=== PATIENT | female | born 1980 | race Caucasian/White ===

== ENCOUNTER → 2016-12-16 | Outpatient (CLI) | payer OTHER, BC ==
[~2016-12-16] MED LIST: ALPR-411 PO; B-CO1CAP17 PO; B-COCAP2 PO; CETI10TA84 PO; CYCL5TAB PO; EPP3/2 INJ; ESCI1TAB10 PO; ESTR0.5T3 PO; OMAL150S INJ; ONDA8TAB13 SL; OXYC-57 PO; PRED20TA PO; PROC1TAB5 PO; TAMS0.4C38 PO; TOPI1CAP3 PO; TOPI50TA16 PO; VENL37.593 PO; ZNTT/150 PO; [UNRECOGNIZED DRUG - CODE] PO
[2016-12-16 19:07] LABS: HEMATOCRIT 37.8 % (37-47); MEAN CELL VOLUME 84.9 fL (80-100); MEAN CORPUSCULAR HEMOGLOBIN 29.4 pg (25-34); MEAN CORPUSCULAR HGB CONC 34.7 g/dl (32-36); MEAN PLATELET VOLUME 11.8 fL (7.4-10.4); PLATELET COUNT 240 K/uL (130-400); PLT ESTIMATE NORMAL; RED BLOOD COUNT 4.45 M/uL (4.2-5.4); WHITE BLOOD COUNT 5.67 K/uL (4.8-10.8)
== END | disposition home or self-care (01) ==
LOC: C.LABMFLN 09:18
PROVIDERS: ATTEND Family Medicine
DX: R61 Generalized hyperhidrosis (principal)

== ENCOUNTER 2017-02-13 19:05 | Emergency (ER) | payer OTHER, BC ==
[~2017-02-13] VITALS: Ht 160 cm; Wt 86.4 kg
[~2017-02-13 19:05] MED LIST changes: -ALPR-411 PO; -B-CO1CAP17 PO; -CETI10TA84 PO; -CYCL5TAB PO; -OMAL150S INJ; -ONDA8TAB13 SL; -OXYC-57 PO; -PRED20TA PO; -TAMS0.4C38 PO; -TOPI1CAP3 PO; -VENL37.593 PO
[2017-02-13 19:09] VITALS: TEMP 36.9; Ht 160 cm; Wt 86.4 kg
[2017-02-13] MEDS ORDERED: MoRPHine SULFATE 4 MG/ML 1 ML CARP\\VIAL IV STA (19:25)
[2017-02-13] MEDS ORDERED: ONDANSETRON INJ 2 MG/ML 2 ML VIAL IV STA (19:25)
[2017-02-13] MEDS ORDERED: CYCL5TAB PO (19:41)
[2017-02-13] MEDS ORDERED: B-CO1CAP17 PO (19:41)
[2017-02-13 19:44] LABS: BASO % 0.3 %; BASO ABS # 0.02 K/uL (0-0.2); COMPLETE YES; EOS % 0.8 %; HEMATOCRIT 38.8 % (37-47); IG% 0.3 %; LYMPH ABS # 2.97 K/uL (1.2-3.4); MEAN CELL VOLUME 85.1 fL (80-100); MEAN CORPUSCULAR HEMOGLOBIN 29.2 pg (25-34); MEAN CORPUSCULAR HGB CONC 34.3 g/dl (32-36); MEAN PLATELET VOLUME 10.3 fL (7.4-10.4); MONO % 4.2 %; NEUT % 54.4 %; PLATELET COUNT 230 K/uL (130-400); RED BLOOD COUNT 4.56 M/uL (4.2-5.4); WHITE BLOOD COUNT 7.42 K/uL (4.8-10.8)
[2017-02-13] MEDS ORDERED: OPTIRAY 320 IV PRN (19:45)
[2017-02-13 19:49] LABS: URINE APPEARANCE CLEAR (CLEAR); URINE BILIRUBIN NEG (NEG); URINE COLOR YELLOW; URINE NITRITE NEG (NEG); URINE PH 5.5 (4.5-7.5); URINE SPECIFIC GRAVITY 1.009 (1.000-1.030); UROBILINOGEN NEG (NEG)
[2017-02-13 19:50] LABS: MANUAL MICROSCOPIC REQUIRED? NO; REVIEW REQ? NO
[2017-02-13 20:04] LABS: ALT/SGPT 34 U/L (12-78); BLOOD UREA NITROGEN 17 mg/dl (7-18); BUN/CREATININE RATIO 22.2 (10-20); CALCIUM 8.6 mg/dl (8.5-10.1); CARBON DIOXIDE 24 mmol/L (21-32); CHLORIDE 106 mmol/L (98-107); CREATININE 0.76 mg/dl (0.60-1.20); GLUCOSE 103 mg/dl (70-99); POTASSIUM 3.7 mmol/L (3.5-5.1); SODIUM 140 mmol/L (136-145)
[2017-02-13 20:07] LABS: ALKALINE PHOSPHATASE 91 U/L (45-117); AST/SGOT 20 U/L (15-37)
--- NOTE | 2017-02-13 22:42 | DIAGNOSTIC IMAGING REPORT ---
LUMBAR SPINE CT CT DOSE: HISTORY: Trauma. Pain. eval for fx TECHNIQUE: Multiaxial CT images of the lumbar spine were performed and reformatted in the sagittal and coronal plane without the use of contrast. COMPARISON: None. FINDINGS: No fractures. No subluxation. Paraspinal soft tissues are unremarkable. IMPRESSION: No fractures within the lumbar spine. Electronically signed by: Spencer Hogue M.D. 02/13/2017 10:41 PM Dictated Date/Time: 02/13/2017 10:40 PM
--- NOTE | 2017-02-13 22:45 | DIAGNOSTIC IMAGING REPORT ---
ABDOMEN AND PELVIS CT WITH IV AND ORAL CONTRAST CT DOSE: 643.42 mGy.cm HISTORY: Trauma. Pain. FINDINGS: Lung bases are clear. Fatty infiltration of liver. Prior cholecystectomy. Pancreas spleen and kidneys are within normal limits. Several nonobstructing punctate renal calcifications. The bowel PATTERN is nonobstructive. Appendix is normal. No free fluid within the cul-de-sac. Bladder is midline. TECHNIQUE: Multiaxial CT images of the abdomen and pelvis were performed following the use of intravenous and oral contrast. COMPARISON STUDY: None. IMPRESSION: No significant abnormality identified within the abdomen or pelvis. Electronically signed by: Spencer Hogue M.D. 02/13/2017 10:44 PM Dictated Date/Time: 02/13/2017 10:42 PM
[2017-02-13] MEDS ORDERED: PRED20TA PO (22:50)
[2017-02-13 23:01] VITALS: BP 118/74; PULSE 81; O2SAT 97
--- NOTE | 2017-02-13 23:03 | EMERGENCY ROOM VISIT NOTE ---
History Report prepared by Piero: Simon Whiting Under the Supervision of: Dr. Faustino Stevenson M.D. First contact with patient: 19:14 Chief Complaint: BACK PAIN Stated Complaint: RIGHT SIDE PAIN - BACK PAIN History of Present Illness The patient is a 37 year old female who presents to the Emergency Room with complaints of persistent lower back pain for the past year. The patient has had pain since she fell when she was helping her daughter move last year. This past summer she fell off of a hammock, which made the back pain worse. She has never sought medical treatment or had imaging for her back. The pain is rated 5/10 in severity. The pain radiates down her left leg, and is worse when she sits for a prolonged period of time. She has had occasional slight incontinence only when she sneezes. The patient notes that she noticed hard lumps on her lower back two weeks ago. The patient started to experience right-sided abdominal pain, nausea, and diarrhea today. The pain is sharp in nature and comes and goes. The pain does not feel like past kidney stones. She denies any fevers, vomiting, black or bloody stools, or urinary symptoms. The patient no longer has her gallbladder but still has her appendix. She went to [facility] earlier today because she could not get an appointment with her doctor. She was not seen there because of the wait. Source of History: patient Onset: one year ago Position: back (lower) Symptom Intensity: 5/10 Timing: other (persistent) Modifying Factors (Worsening): other (sitting for prolonged periods) Associated Symptoms: + abdominal pain, + diarrhea, + nausea, No fevers, No hematochezia, No melena, No urinary symptoms, No vomiting Review of Systems See HPI for pertinent positives & negatives. A total of 10 systems reviewed and were otherwise negative. Past Medical & Surgical Medical Problems: (1) Cholecystectomy (2) Hyperlipidemia Nec/Nos (3) Hysterectomy (4) Pyelonephritis Nos (5) Renal Colic (6) Urticaria Nos Family History Cancer Diabetes mellitus Hypertension Social History Smoking Status: Current Every Day Smoker Alcohol Use: occasionally Drug Use: none Marital Status: Occupation Status: employed Current/Historical Medications Scheduled Escitalopram Oxalate (Lexapro), 20 MG PO QAM Estradiol (Estradiol), 1 TAB PO HS Prednisone (Prednisone), 0 PO DAILY Ranitidine (Zantac), 300 MG PO QAM Topiramate (Topamax), 50 MG PO BID Vitamin B Cmplx/Vitc/Folic Ac (Nephrocaps), 1 CAP PO DAILY Scheduled PRN Cyclobenzaprine Hcl (Flexeril), 5 MG PO TID PRN for Muscle Spasms Epinephrine (Epipen 2-Parth), 0.3 MG INJ UD PRN for ANAPHYLAXIS Naratriptan HCl (Naratriptan HCl), 2.5 MG PO UD PRN for Migraine Prochlorperazine Maleate (Compazine), 10 MG PO UD PRN for Migraine Allergies Coded Allergies: Ibuprofen (Verified Allergy, Severe, ANAPHYLATIC SHOCK, 08/06/16) NSAIDs (Verified Allergy, Severe, anaphylatic shock, 08/06/16) Naproxen (Verified Allergy, Severe, ANAPHYLATIC SHOCK, 08/06/16) Physical Exam Vital Signs Date Time Temp Pulse Resp B/P Pulse Ox O2 Delivery O2 Flow Rate FiO2 02/13/17 19:09 36.9 84 18 122/77 97 Room Air Physical Exam Constitutional: Vital signs reviewed. Eyes: Pupils are equal round reactive to light. Conjunctiva are noninjected. ENT: Pharynx is clear without erythema or exudate. Mucous membranes are moist. Neck supple without meningeal signs. Respiratory: Clear to auscultation bilaterally. Breath sounds are equal bilaterally. Cardiovascular: Regular rate and rhythm. No rubs or gallops. GI: Soft, nondistended with tenderness in the mid right abdomen. Bowel sounds are present. Musculoskeletal: No peripheral edema. No lower extremity tenderness. No CVA tenderness. No midline tenderness to the thoracic or lumbosacral spine. Lungs the patient was palpating was her sacrum. There is no evidence of abscess or soft tissue mass. Integumentary: No cyanosis. Neurological: The patient is awake and alert. No focal deficits. Motor and sensation are intact throughout the lower extremities. Psychiatric: Normal affect. Medical Decision & Procedures ER Provider Diagnostic Interpretation: CT results as stated below per my review and radiologist interpretation. ABDOMEN AND PELVIS CT WITH IV AND ORAL CONTRAST CT DOSE: 643.42 mGy.cm HISTORY: Trauma. Pain. FINDINGS: Lung bases are clear. Fatty infiltration of liver. Prior cholecystectomy. Pancreas spleen and kidneys are within normal limits. Several nonobstructing punctate renal calcifications. The bowel PATTERN is nonobstructive. Appendix is normal. No free fluid within the cul-de-sac. Bladder is midline. TECHNIQUE: Multiaxial CT images of the abdomen and pelvis were performed following the use of intravenous and oral contrast. COMPARISON STUDY: None. IMPRESSION: No significant abnormality identified within the abdomen or pelvis. Electronically signed by: Spencer Hogue M.D. 02/13/2017 10:44 PM Dictated Date/Time: 02/13/2017 10:[address] DOSE: HISTORY: Trauma. Pain. eval for fx TECHNIQUE: Multiaxial CT images of the lumbar spine were performed and reformatted in the sagittal and coronal plane without the use of contrast. COMPARISON: None. FINDINGS: No fractures. No subluxation. Paraspinal soft tissues are unremarkable. IMPRESSION: No fractures within the lumbar spine. Electronically signed by: Spencer Hogue M.D. 02/13/2017 10:41 PM Dictated Date/Time: 02/13/2017 10:40 PM Laboratory Results 02/13/17 19:34 Red Blood Count 4.56, Mean Corpuscular Volume 85.1, Mean Corpuscular Hemoglobin 29.2, Mean Corpuscular Hemoglobin Concent 34.3, Mean Platelet Volume 10.3, Neutrophils (%) (Auto) 54.4, Lymphocytes (%) (Auto) 40.0, Monocytes (%) (Auto) 4.2, Eosinophils (%) (Auto) 0.8, Basophils (%) (Auto) 0.3, Neutrophils # (Auto) 4.04, Lymphocytes # (Auto) 2.97, Monocytes # (Auto) 0.31, Eosinophils # (Auto) 0.06, Basophils # (Auto) 0.02 02/13/17 19:34 Test 02/13/17 00:00 02/13/17 19:34 Urine Color YELLOW Urine Appearance CLEAR (CLEAR) Urine pH 5.5 (4.5-7.5) Urine Specific [place] 1.009 (1.000-1.030) Urine Protein NEG (NEG) Urine Glucose (UA) NEG (NEG) Urine Ketones NEG (NEG) Urine Occult Blood NEG (NEG) Urine Nitrite NEG (NEG) Urine Bilirubin NEG (NEG) Urine Urobilinogen NEG (NEG) Urine Leukocyte Esterase NEG (NEG) Urine Test NEG (NEG) White Blood Count 7.42 K/uL (4.8-10.8) Red Blood Count 4.56 M/uL (4.2-5.4) Hemoglobin 13.3 g/dL (12.0-16.0) Hematocrit 38.8 % (37-47) Mean Corpuscular Volume 85.1 fL (80-100) Mean Corpuscular Hemoglobin 29.2 pg (25-34) Mean Corpuscular Hemoglobin Concent 34.3 g/dl (32-36) Platelet Count 230 K/uL (130-400) Mean Platelet Volume 10.3 fL (7.4-10.4) Neutrophils (%) (Auto) 54.4 % Lymphocytes (%) (Auto) 40.0 % Monocytes (%) (Auto) 4.2 % Eosinophils (%) (Auto) 0.8 % Basophils (%) (Auto) 0.3 % Neutrophils # (Auto) 4.04 K/uL (1.4-6.5) Lymphocytes # (Auto) 2.97 K/uL (1.2-3.4) Monocytes # (Auto) 0.31 K/uL (0.11-0.59) Eosinophils # (Auto) 0.06 K/uL (0-0.5) Basophils # (Auto) 0.02 K/uL (0-0.2) RDW Standard Deviation 39.7 fL (36.4-46.3) RDW Coefficient of Variation 12.9 % (11.5-14.5) Immature Granulocyte % (Auto) 0.3 % Immature Granulocyte # (Auto) 0.02 K/uL (0.00-0.02) Anion Gap 10.0 mmol/L (3-11) Est Creatinine Clear Calc Drug Dose 103.5 ml/min Estimated GFR () 114.5 Estimated GFR (Non- 98.8 BUN/Creatinine Ratio 22.2 (10-20) Calcium Level 8.6 mg/dl (8.5-10.1) Total Bilirubin 0.3 mg/dl (0.2-1) Direct Bilirubin < 0.1 mg/dl (0-0.2) Aspartate Amino Transf (AST/SGOT) 20 U/L (15-37) Alanine Aminotransferase (ALT/SGPT) 34 U/L (12-78) Alkaline Phosphatase 91 U/L (45-117) Total Protein 7.7 gm/dl (6.4-8.2) Albumin 3.8 gm/dl (3.4-5.0) Lipase 208 U/L (73-393) Laboratory results as reviewed by me. Medications Administered Medications (Trade) Dose Ordered Sig/Marisol Route Start Time Stop Time Status Last Admin Dose Admin Morphine Sulfate (MoRPHine SULFATE INJ) 4 mg ONE STAT IV 02/13/17 19:25 02/13/17 19:28 DC 02/13/17 19:48 4 MG Ondansetron HCl (Zofran Inj) 4 mg NOW STAT IV 02/13/17 19:25 02/13/17 19:28 DC 02/13/17 19:48 4 MG ED Course 1915: The patient was evaluated in room C7. A complete history and physical exam was performed. 1924: Zofran 4 mg IV, Morphine Sulfate 4 mg IV. 2099: Discussed the results so far with her. She is feeling better. 2244: Discussed the CT findings with her. I recommended close follow up with her doctor and physical therapy. Medical Decision This is a 37-year-old female who presents with low back pain and right-sided abdominal pain. Differential diagnosis includes acute appendicitis, perforation , abscess, colitis, ileitis, lumbar disc disease, compression fracture, kidney stone. I did perform a limited focused review of portions of the patient's old chart on the electronic medical record. The patient had a CT scan in 2015 that showed kidney stones. I did evaluate the patient as noted above. The patient is presenting with right- sided abdominal pain that started prior to arrival. She has some mild tenderness in the right mid abdomen. She states it does not feel like her kidney stones. She also states that she has been having back pain for a year and has never sought medical attention for this. She is neurologically intact without signs of cauda equina syndrome. She does state that she had some intermittent urinary incontinence with sneezing only but has not had any recently. IV access was established. I did treat the patient with IV morphine and Zofran. I did order and personally review the patient's urinalysis as described above. There is no signs of infection. Urine test is negative. I did order and review the patient's blood work as noted in the electronic medical record. Her white blood cell count is not elevated. LFTs and lipase are unremarkable. I did order a CT of the abdomen and pelvis and lumbosacral spine. I did review the images myself as well as the radiology report as described above. There is no evidence of acute pathology and understand. I did reassess the patient. She is feeling better. I did discuss the test results with her. She was also concerned about 2 lumps in her back but on examination these are bony prominences and not pathologic. There is no tenderness or erythema to suggest abscess. I did recommend close follow up with her doctor for further evaluation as well as referral to physical therapy. She states she is allergic to NSAIDs and so I provided her with a prescription for prednisone for anti-inflammatory effects for her back pain. She was discharged in good condition and given return instructions as outlined below. Impression Primary Impression: Right sided abdominal pain Additional Impression: Chronic low back pain Scribe Attestation The scribe's documentation has been prepared under my direct and personally reviewed by me in its entirety. I confirm that the note above accurately reflects all work, treatment, procedures, and medical decision making performed by me. Departure Information Dispostion Home / Self-Care Prescriptions Prednisone (Prednisone) 20 Mg Tab 0 PO DAILY, #14 TAB 3 TABS DAILY FOR 2 DAYS, THEN 2 TABS DAILY FOR 2 DAYS, THEN 1 TAB DAILY FOR 2 DAYS, THEN 1/2 TAB DAILY FOR 2 DAYS. Prov: Faustino Stevenson M.D. 02/13/17 Referrals No Doctor, Assigned (PCP) Forms HOME CARE DOCUMENTATION FORM, IMPORTANT VISIT INFORMATION Patient Instructions ED Abd Pain Unkn Cause Fem, ED Back Pain Acute Chronic, My [facility] Additional Instructions You have been examined and treated today on an emergency basis only. This is not a substitute for, or an effort to provide, complete comprehensive medical care. It is impossible to recognize and treat all injuries or illnesses in a single emergency department visit. It is therefore important that you follow up closely with your physician. Call as soon as possible for an appointment. Return for worsening symptoms or if you develop fever, vomiting, loss of control of your bowel or bladder, numbness or weakness to your legs, numbness to your private area, difficulty urinating, or any other concerning symptoms. Problem Qualifiers Additional Impression: Chronic low back pain Back pain laterality: bilateral Sciatica presence: with sciatica Sciatica laterality: sciatica of left side Qualified Codes: M54.42 - Lumbago with sciatica, left side; G89.29 - Other chronic pain
[2017-04-23] MEDS ORDERED: ALPR-411 PO (18:11)
== END 2017-02-13 23:02 | disposition home or self-care (01) ==
LOC: C.EDB 19:07 → C.EDC 23:02
DX: M54.42 Lumbago with sciatica, left side (principal); R10.9 Unspecified abdominal pain; G89.29 Other chronic pain; Z87.442 Personal history of urinary calculi; Z90.49 Acquired absence of other specified parts of digestive tract; Z90.710 Acquired absence of both cervix and uterus; E78.5 Hyperlipidemia, unspecified; Z83.3 Family history of diabetes mellitus; Z82.49 Family history of ischemic heart disease and other diseases of the circulatory system; F17.210 Nicotine dependence, cigarettes, uncomplicated; Z79.899 Other long term (current) drug therapy

== ENCOUNTER 2017-04-23 17:21 | Emergency (ER) | payer OTHER, BC ==
[~2017-04-23] VITALS: Ht 160 cm; Wt 87.0 kg
[~2017-04-23 17:21] MED LIST changes: +B-CO1CAP17 PO; -B-COCAP2 PO; +CYCL5TAB PO; +PRED20TA PO
[2017-04-23 17:25] VITALS: TEMP 36.7; Ht 160 cm; Wt 87.0 kg
[2017-04-23] MEDS ORDERED: VENL37.593 PO (18:11)
[2017-04-23] MEDS ORDERED: CETI10TA84 PO (18:11)
--- NOTE | 2017-04-23 18:11 | DIAGNOSTIC IMAGING REPORT ---
CHEST ONE VIEW PORTABLE HISTORY: Evaluate Fever/Sepsis COMPARISON: Chest 08/30/2013. FINDINGS: The lungs are clear. Cardiac silhouette is normal in size. No pleural effusions. No pneumothorax. Cholecystectomy. IMPRESSION: No acute process. Electronically signed by: Armani Barrientos M.D. 04/23/2017 6:10 PM Dictated Date/Time: 04/23/2017 6:09 PM
[2017-04-23 18:12] LABS: BASO % 0.2 %; BASO ABS # 0.01 K/uL (0-0.2); COMPLETE YES; EOS % 1.1 %; HEMATOCRIT 39.5 % (37-47); IG% 0.4 %; LYMPH % 42.2 %; LYMPH ABS # 2.34 K/uL (1.2-3.4); MEAN CELL VOLUME 85.5 fL (80-100); MEAN CORPUSCULAR HGB CONC 33.9 g/dl (32-36); MEAN PLATELET VOLUME 10.4 fL (7.4-10.4); MONO % 5.6 %; NEUT % 50.5 %; PLATELET COUNT 239 K/uL (130-400); RED BLOOD COUNT 4.62 M/uL (4.2-5.4); WHITE BLOOD COUNT 5.55 K/uL (4.8-10.8)
[2017-04-23 18:29] LABS: ALT/SGPT 33 U/L (12-78); AST/SGOT 19 U/L (15-37); BLOOD UREA NITROGEN 8 mg/dl (7-18); CALCIUM 8.3 mg/dl (8.5-10.1); CARBON DIOXIDE 26 mmol/L (21-32); CHLORIDE 108 mmol/L (98-107); CREATININE 0.68 mg/dl (0.60-1.20); GLUCOSE 96 mg/dl (70-99); POTASSIUM 3.5 mmol/L (3.5-5.1); SODIUM 141 mmol/L (136-145)
[2017-04-23 18:30] LABS: INR 0.9 (0.9-1.1)
[2017-04-23 18:40] LABS: ALKALINE PHOSPHATASE 89 U/L (45-117); CKMB/CK RATIO 2.3 (0-3.0)
[2017-04-23 18:53] VITALS: BP 98/59; PULSE 80; O2SAT 99
--- NOTE | 2017-04-23 23:25 | EMERGENCY ROOM VISIT NOTE ---
History Report prepared by Piero: Regina Buchanan Under the Supervision of: Dr. Ady Machado D.O. First contact with patient: 17:33 Chief Complaint: CHEST PAIN Stated Complaint: CHEST PAIN History of Present Illness The patient is a 37 year old female who presents to the Emergency Room with complaints of constant chest pain and pressure beginning last night. The patient states that she went to a baseball game last night and was a little bit stressed out at the game. She reports that when they got home her son was wrestling with their dog and had to come into the ED to get stitches. She notes that she started feeling chest pain last night before they left for the ED and it continued into this morning when she woke up. The patient states that she has a history of panic attacks but this feels different from a panic attack. She complains of a dry cough and notes that today the pain is radiating into her left shoulder. She reports that she took a half a pill of Lorazepam today at work without relief of her symptoms. The patient notes that she has a history of anxiety, migraines, and takes estradiol after having a hysterectomy. She denies any history of heart issues, blood clots, or family history of heart problems. She denies any shortness of breath and states that her pain is worsened with deep breathing. Source of History: patient Onset: last night Position: chest Quality: pressure Timing: constant Modifying Factors (Worsening): other (deep breath) Associated Symptoms: + cough, No SOB Note: Pt complains of left shoulder pain. Review of Systems See HPI for pertinent positives & negatives. A total of 10 systems reviewed and were otherwise negative. Past Medical & Surgical Medical Problems: (1) Cholecystectomy (2) Hyperlipidemia Nec/Nos (3) Hysterectomy (4) Pyelonephritis Nos (5) Renal Colic (6) Urticaria Nos Family History Cancer Diabetes mellitus Hypertension Social History Smoking Status: Current Every Day Smoker Alcohol Use: occasionally Drug Use: none Marital Status: Occupation Status: employed Current/Historical Medications Scheduled Cetirizine (Zyrtec), 10 MG PO DAILY Estradiol (Estradiol), 1 TAB PO HS Ranitidine (Zantac), 300 MG PO QAM Topiramate (Topamax), 50 MG PO BID Venlafaxine Hcl (Venlafaxine Extended Rel), 75 MG PO DAILY Vitamin B Cmplx/Vitc/Folic Ac (Nephrocaps), 1 CAP PO DAILY Scheduled PRN Alprazolam (Alprazolam), 0.5 MG PO DAILY PRN for Anxiety Epinephrine (Epipen 2-Parth), 0.3 MG INJ UD PRN for ANAPHYLAXIS Naratriptan HCl (Naratriptan HCl), 2.5 MG PO UD PRN for Migraine Prochlorperazine Maleate (Compazine), 10 MG PO UD PRN for Migraine Allergies Coded Allergies: Ibuprofen (Verified Allergy, Severe, ANAPHYLATIC SHOCK, 08/06/16) NSAIDs (Verified Allergy, Severe, anaphylatic shock, 08/06/16) Naproxen (Verified Allergy, Severe, ANAPHYLATIC SHOCK, 08/06/16) Physical Exam Vital Signs Date Time Temp Pulse Resp B/P (MAP) Pulse Ox O2 Delivery O2 Flow Rate FiO2 04/23/17 18:53 80 18 98/59 99 Room Air 04/23/17 17:45 87 04/23/17 17:30 99 Room Air 04/23/17 17:25 36.7 96 18 119/84 99 Room Air Physical Exam CONSTITUTIONAL/VITAL SIGNS: Reviewed / noted above. GENERAL: Non-toxic in appearance. INTEGUMENTARY: Warm, dry, and [place]. HEAD: Normocephalic. EYES: without scleral icterus or trauma. ENT/OROPHARYNX: clear and moist. LYMPHADENOPATHY/NECK: Is supple without lymphadenopathy or meningismus. RESPIRATORY: Lungs clear and equal. CARDIOVASCULAR: Regular rate and rhythm. GI/ABDOMEN: Soft and nontender. No organomegaly or pulsatile mass. No rebound or guarding. Normal bowel sounds. EXTREMITIES: Warm and well perfused. BACK: No CVA tenderness. NEUROLOGICAL: Intact without focal deficits. PSYCHIATRIC: normal affect. MUSCULOSKELETAL: Normally developed with good muscle tone. Medical Decision & Procedures ER Provider Diagnostic Interpretation: X ray results and stated below per my interpretation and radiology interpretation. CHEST ONE VIEW PORTABLE FINDINGS: The lungs are clear. Cardiac silhouette is normal in size. No pleural effusions. No pneumothorax. Cholecystectomy. IMPRESSION: No acute process. Electronically signed by: Armani Barrientos M.D. 04/23/2017 6:10 PM Dictated Date/Time: 04/23/2017 6:09 PM Laboratory Results 04/23/17 17:54 Red Blood Count 4.62, Mean Corpuscular Volume 85.5, Mean Corpuscular Hemoglobin 29.0, Mean Corpuscular Hemoglobin Concent 33.9, Mean Platelet Volume 10.4, Neutrophils (%) (Auto) 50.5, Lymphocytes (%) (Auto) 42.2, Monocytes (%) (Auto) 5.6, Eosinophils (%) (Auto) 1.1, Basophils (%) (Auto) 0.2, Neutrophils # (Auto) 2.81, Lymphocytes # (Auto) 2.34, Monocytes # (Auto) 0.31, Eosinophils # (Auto) 0.06, Basophils # (Auto) 0.01 04/23/17 17:54 Test 04/23/17 17:54 04/23/17 18:01 White Blood Count 5.55 K/uL (4.8-10.8) Red Blood Count 4.62 M/uL (4.2-5.4) Hemoglobin 13.4 g/dL (12.0-16.0) Hematocrit 39.5 % (37-47) Mean Corpuscular Volume 85.5 fL (80-100) Mean Corpuscular Hemoglobin 29.0 pg (25-34) Mean Corpuscular Hemoglobin Concent 33.9 g/dl (32-36) Platelet Count 239 K/uL (130-400) Mean Platelet Volume 10.4 fL (7.4-10.4) Neutrophils (%) (Auto) 50.5 % Lymphocytes (%) (Auto) 42.2 % Monocytes (%) (Auto) 5.6 % Eosinophils (%) (Auto) 1.1 % Basophils (%) (Auto) 0.2 % Neutrophils # (Auto) 2.81 K/uL (1.4-6.5) Lymphocytes # (Auto) 2.34 K/uL (1.2-3.4) Monocytes # (Auto) 0.31 K/uL (0.11-0.59) Eosinophils # (Auto) 0.06 K/uL (0-0.5) Basophils # (Auto) 0.01 K/uL (0-0.2) RDW Standard Deviation 40.7 fL (36.4-46.3) RDW Coefficient of Variation 13.1 % (11.5-14.5) Immature Granulocyte % (Auto) 0.4 % Immature Granulocyte # (Auto) 0.02 K/uL (0.00-0.02) Prothrombin Time 10.0 SECONDS (9.0-12.0) Prothromb Time International Ratio 0.9 (0.9-1.1) Activated Partial Thromboplast Time 26.8 SECONDS (21.0-31.0) Partial Thromboplastin Ratio 1.0 Anion Gap 7.0 mmol/L (3-11) Est Creatinine Clear Calc Drug Dose 116.1 ml/min Estimated GFR () 127.7 Estimated GFR (Non- 110.2 BUN/Creatinine Ratio 12.0 (10-20) Calcium Level 8.3 mg/dl (8.5-10.1) Total Bilirubin 0.3 mg/dl (0.2-1) Direct Bilirubin < 0.1 mg/dl (0-0.2) Aspartate Amino Transf (AST/SGOT) 19 U/L (15-37) Alanine Aminotransferase (ALT/SGPT) 33 U/L (12-78) Alkaline Phosphatase 89 U/L (45-117) Total Creatine Kinase 71 U/L (26-192) Creatine Kinase MB 1.6 ng/ml (0.5-3.6) Creatine Kinase MB Ratio 2.3 (0-3.0) Total Protein 7.4 gm/dl (6.4-8.2) Albumin 3.7 gm/dl (3.4-5.0) Lipase 139 U/L (73-393) Thyroid Stimulating Hormone (TSH) 1.560 uIu/ml (0.300-4.500) Bedside D-Dimer 209 ng/mlFEU (0-450) Bedside Troponin I 0.000 ng/ml (0-0.045) Laboratory results as stated above per my review. ECG Indication: chest pain Rate (beats per minute): 85 Rhythm: normal sinus Findings: no ectopy, other (no acute injury) ED Course 173: Previous medical records were reviewed. The patient was evaluated in room B12B. A complete history and physical examination was performed. 1858: I reevaluated the patient and she is doing well. 1906: On reevaluation, the patient is doing well. I discussed the results and findings with the patient. She verbalized agreement of the treatment plan. The patient was discharged home. Medical Decision Differential diagnosis: Etiologies such as cardiac ischemia, aortic dissection, pulmonary embolism, pneumonia, pneumothorax, musculoskeletal, infections, pericarditis, myocarditis , esophageal rupture, gastrointestinal, as well as others were entertained. Medication Reconciliation: I attest that I have personally reviewed the patient' s current medication list. Blood pressure Screening: Patient was found to have normal blood pressure on screening and does not require follow-up. This is a 37-year-old female who presents to the ED with a chief complaint of retrosternal chest pain that radiates to her left shoulder. She also reports a dry cough. She has history of hysterectomy. She is a smoker. Denies any early family history of cardiac disease. No personal family history of DVT. Her exam is normal. EKG shows a normal sinus rhythm. CBC was normal as well as other labs. D-dimer is negative. Troponin was negative. Chest x-ray did not show acute disease. The patient was told the results. She is felt to be stable for discharge and outpatient follow-up. Impression Primary Impression: Non-cardiac chest pain Additional Impression: Cough Scribe Attestation The scribe's documentation has been prepared under my direction and personally reviewed by me in its entirety. I confirm that the note above accurately reflects all work, treatment, procedures, and medical decision making performed by me. Departure Information Dispostion Home / Self-Care Referrals Anette Vences M.D. (PCP) Patient Instructions My [facility] Problem Qualifiers
== END 2017-04-23 19:13 | disposition home or self-care (01) ==
LOC: C.EDB 17:22
DX: R07.89 Other chest pain (principal); R05 Cough; F41.9 Anxiety disorder, unspecified; E78.5 Hyperlipidemia, unspecified; Z90.710 Acquired absence of both cervix and uterus; F17.200 Nicotine dependence, unspecified, uncomplicated; Z83.3 Family history of diabetes mellitus; Z82.49 Family history of ischemic heart disease and other diseases of the circulatory system

== ENCOUNTER 2017-07-02 19:10 | Emergency (ER) | payer OTHER, BC ==
[~2017-07-02] VITALS: Ht 170.2 cm; Wt 87.0 kg
[~2017-07-02 19:10] MED LIST changes: +CETI10TA84 PO; -CYCL5TAB PO; -ESCI1TAB10 PO; -PRED20TA PO; +VENL37.593 PO
[2017-07-02 19:32] VITALS: TEMP 37.2; Ht 170.2 cm; Wt 87.0 kg
--- NOTE | 2017-07-02 19:38 | EMERGENCY ROOM VISIT NOTE ---
History First contact with patient: 19:36 (Alka. Serrano MD) First contact with patient: 19:36 (Mary Grace Muhammad DO) Chief Complaint: ABDOMINAL PAIN Stated Complaint: LEFT SIDE ABDOMINAL PAIN History of Present Illness The patient is a 37 year old female who presents to the Emergency Room with complaints of LLQ pain radiating to left back. Pain started yesterday morning, cramping in nature, ranges in severity from 4-6/10. Associated with nausea and bloating, but no vomiting. Also had chills today, but no fevers or sweats. No relief of symptoms with Tylenol 1000mg - patient can't take NSAID because of allergies. Pain felt irrespective of position and worsens with ambulation. Having chills, no fevers or sweats Has had pencil like stools ~ 1week ago and diarrhea subsequently. She has noted she is passing yellow fluid like urine. She is passing gas. Today while voiding today, she noted what she believes to be fecal matter. She otherwise denies UTI sx. No SOB, CP No history of constipation Lap cholecystomy - 2001 Open hysterectomy - 2002 Kidney stone - multiple episodes - last one a couple of months ago, s/p stent insertion and subsequent removal. No h/o pyelo Son has Crohn's No personal hx of IBS, IBD, diverticulitis (Alka. Serrano MD) Review of Systems See HPI for pertinent positives and negatives. A total of ten systems were reviewed and were otherwise negative. (Alka. Serrano MD) Past Medical/Surgical History Medical Problems: (1) Cholecystectomy (2) Hyperlipidemia Nec/Nos (3) Hysterectomy (4) Pyelonephritis Nos (5) Renal Colic (6) Urticaria Nos (Mary Grace Muhammad DO) Family History Cancer Diabetes mellitus Hypertension (Alka. Serrano MD) Cancer Diabetes mellitus Hypertension (Mary Grace Muhammad DO) Social History Smoking Status: Current Every Day Smoker (half pack daily. keen to enrique) Smokeless Tobacco Use: No Alcohol Use: occasionally Drug Use: none Marital Status: Housing Status: lives with family Occupation Status: employed (Alka. Serrano MD) Current/Historical Medications Scheduled Cetirizine (Zyrtec), 10 MG PO DAILY Estradiol (Estradiol), 1 TAB PO HS Omalizumab (Xolair), 1 DOSE INJ MONTHLY Ondansetron Odt (Zofran Odt), 8 MG SL Q6H Ranitidine (Zantac), 300 MG PO QAM Tamsulosin Hcl (Flomax), 0.4 MG PO DAILY Topiramate (Trokendi Xr), 100 MG PO HS Venlafaxine Hcl (Venlafaxine Extended Rel), 75 MG PO DAILY Vitamin B Cmplx/Vitc/Folic Ac (Nephrocaps), 1 CAP PO DAILY Scheduled PRN Alprazolam (Alprazolam), 0.5 MG PO DAILY PRN for Anxiety Epinephrine (Epipen 2-Parth), 0.3 MG INJ UD PRN for ANAPHYLAXIS Naratriptan HCl (Naratriptan HCl), 2.5 MG PO UD PRN for Migraine Oxycodone/Acetaminophen 5MG/325MG (Percocet 5MG/325MG), 1 TAB PO Q4H PRN for Pain Prochlorperazine Maleate (Compazine), 10 MG PO UD PRN for Migraine Allergies Coded Allergies: Ibuprofen (Verified Allergy, Severe, ANAPHYLATIC SHOCK, 07/02/17) NSAIDs (Verified Allergy, Severe, anaphylatic shock, 07/02/17) Naproxen (Verified Allergy, Severe, ANAPHYLATIC SHOCK, 07/02/17) Physical Exam Vital Signs Date Time Temp Pulse Resp B/P (MAP) Pulse Ox O2 Delivery O2 Flow Rate FiO2 07/03/17 00:02 87 16 110/61 95 Room Air 07/02/17 22:15 80 20 118/71 96 Room Air 07/02/17 20:51 87 20 105/69 98 Room Air 07/02/17 19:32 37.2 95 16 117/76 98 Room Air (Mary Grace Muhammad S., DO) Physical Exam GENERAL: alert, lying in bed, mild distress, non-toxic HEAD: NC/AT. No sinus tenderness. OROPHARYNX: No exudate, no erythema, lips, buccal mucosa, and tongue normal and mucous membranes are tacky NECK: supple, no nuchal rigidity, cervical adenopathy bilaterally, non-tender LUNGS: Clear to auscultation. Normal chest wall mechanics, good air entry. No crepitations, crackles, or wheezes HEART: S1 and S2 normal, no murmurs CHEST: No reproducible tenderness. ABDOMEN: Abdomen soft, tender diffusely but worse on the LUQ and LLQ - leads patient to feel spasming internally, normo-active bowel sounds, no masses, no rebound or guarding. BACK: Back is symmetrical on inspection, no deformities, no midline tenderness, left CVA tenderness. SKIN: Warm, pink, dry. No erythema, rashes, or bruising. EXTREMITIES: Grossly normal. No pitting edema. Calves non tender. NEURO: Alert, Ox3. No focal deficits. Normal sensorium, cranial nerves II-XII grossly intact, normal speech. PSYCH: Mood and affect appropriate. (Alka. Serrano MD) Medical Decision & Procedures ER Provider Diagnostic Interpretation: ABD/PELVIS IV AND ORAL CONT HISTORY: 37 years-old Female acute abdominal pain L>R, r/o rectal/bladder fistula COMPARISON: CT abdomen and pelvis 02/13/2017 TECHNIQUE: Multiple axial CT images of the abdomen and pelvis were obtained following the intravenous administration of 94 ml Optiray 320. Oral contrast was also used. A dose lowering technique was used consistent with the principals of ALARA. FINDINGS: There is mild dependent bibasilar atelectasis. No pneumoperitoneum. Imaged inferior cardiac chambers are unremarkable. There is suggested fatty infiltration of the liver. Prior cholecystectomy. The spleen, pancreas and adrenal glands appear normal. There is a 4 mm nonobstructing calculus of the superior pole right kidney. There is a 5 x 4 x 5 mm calculus of the proximal left ureter just distal to the ureteropelvic junction which causes mild obstructive uropathy. Additionally, there is a punctate nonobstructing calculus of the inferior pole left kidney. Distal ureters, urinary bladder are unremarkable. Prior hysterectomy. There is no evidence of colovesicular fistula. The abdominal aorta is normal in course and caliber. No bulky adenopathy. There is no bowel obstruction. No evidence of acute appendicitis. Soft tissues are unremarkable. Bones are intact. IMPRESSION: 1. 5 x 4 x 5 mm calculus of the proximal left ureter just distal to the ureteropelvic junction causes mild obstructive uropathy. 2. Additional nonobstructing renal calculi are present bilaterally as above. 3. Prior cholecystectomy and hysterectomy. (Alka. Serrano MD) Diagnostic Interpretation: CT abdomen and pelvis: Comparison made to 02/13/2017 Please seen stone lower pole left kidney is now at the proximal left ureter and measures around 2-3 mm with mild left hydronephrosis. Small, punctate stone again seen upper pole right kidney. Hepatic steatosis. Status post cholecystectomy. Basilar atelectasis. Radiologist: Zoran Dillard M.D. (Mary Grace Muhammad DO) Laboratory Results 07/02/17 20:28 Red Blood Count 4.43, Mean Corpuscular Volume 86.2, Mean Corpuscular Hemoglobin 29.3, Mean Corpuscular Hemoglobin Concent 34.0, Mean Platelet Volume 10.5, Neutrophils (%) (Auto) 56.9, Lymphocytes (%) (Auto) 35.7, Monocytes (%) (Auto) 6.0, Eosinophils (%) (Auto) 0.6, Basophils (%) (Auto) 0.5, Neutrophils # (Auto) 3.59, Lymphocytes # (Auto) 2.25, Monocytes # (Auto) 0.38, Eosinophils # (Auto) 0.04, Basophils # (Auto) 0.03 07/02/17 20:28 Test 07/02/17 20:28 07/02/17 20:43 White Blood Count 6.31 K/uL (4.8-10.8) Red Blood Count 4.43 M/uL (4.2-5.4) Hemoglobin 13.0 g/dL (12.0-16.0) Hematocrit 38.2 % (37-47) Mean Corpuscular Volume 86.2 fL (80-100) Mean Corpuscular Hemoglobin 29.3 pg (25-34) Mean Corpuscular Hemoglobin Concent 34.0 g/dl (32-36) Platelet Count 238 K/uL (130-400) Mean Platelet Volume 10.5 fL (7.4-10.4) Neutrophils (%) (Auto) 56.9 % Lymphocytes (%) (Auto) 35.7 % Monocytes (%) (Auto) 6.0 % Eosinophils (%) (Auto) 0.6 % Basophils (%) (Auto) 0.5 % Neutrophils # (Auto) 3.59 K/uL (1.4-6.5) Lymphocytes # (Auto) 2.25 K/uL (1.2-3.4) Monocytes # (Auto) 0.38 K/uL (0.11-0.59) Eosinophils # (Auto) 0.04 K/uL (0-0.5) Basophils # (Auto) 0.03 K/uL (0-0.2) RDW Standard Deviation 40.9 fL (36.4-46.3) RDW Coefficient of Variation 12.9 % (11.5-14.5) Immature Granulocyte % (Auto) 0.3 % Immature Granulocyte # (Auto) 0.02 K/uL (0.00-0.02) Urine Color YELLOW Urine Appearance CLEAR (CLEAR) Urine pH 6.0 (4.5-7.5) Urine Specific [place] 1.024 (1.000-1.030) Urine Protein NEG (NEG) Urine Glucose (UA) NEG (NEG) Urine Ketones NEG (NEG) Urine Occult Blood 2+ (NEG) Urine Nitrite NEG (NEG) Urine Bilirubin NEG (NEG) Urine Urobilinogen NEG (NEG) Urine Leukocyte Esterase TRACE (NEG) Urine WBC (Auto) 1-5 /hpf (0-5) Urine RBC (Auto) >30 /hpf (0-4) Urine Hyaline Casts (Auto) 1-5 /lpf (0-5) Urine Epithelial Cells (Auto) >30 /lpf (0-5) Urine Bacteria (Auto) NEG (NEG) Est Creatinine Clear Calc Drug Dose 127.7 ml/min Estimated GFR () 128.3 Estimated GFR (Non- 110.7 BUN/Creatinine Ratio 21.0 (10-20) Calcium Level 8.5 mg/dl (8.5-10.1) Total Bilirubin 0.3 mg/dl (0.2-1) Aspartate Amino Transf (AST/SGOT) 17 U/L (15-37) Alanine Aminotransferase (ALT/SGPT) 39 U/L (12-78) Alkaline Phosphatase 108 U/L (45-117) Total Protein 7.1 gm/dl (6.4-8.2) Albumin 3.6 gm/dl (3.4-5.0) Globulin 3.5 gm/dl (2.5-4.0) Albumin/Globulin Ratio 1.0 (0.9-2) Lipase 151 U/L (73-393) Bedside Hemoglobin 12.9 g/dl (12.0-16.0) Bedside Hematocrit 38 % (37-47) Bedside Sodium 140 mEq/L (135-144) Bedside Potassium 3.5 mEq/L (3.3-5.0) Bedside Chloride 104 mEq/L (101-112) Bedside Total CO2 24 mEq/l (24-31) Anion Gap 17.0 mmol/L (16-25) Bedside Blood Urea Nitrogen 16 mg/dl (7-18) Bedside Creatinine 0.6 mg/dl (0.6-1.3) Bedside Glucose (other) 110 mg/dl (70-99) Bedside Ionized Calcium (Renetta) 1.17 mmol/l (1.12-1.32) (Mary Grace Muhammad, DO) Medications Administered Medications (Trade) Dose Ordered Sig/Marisol Route Start Time Stop Time Status Last Admin Dose Admin Ondansetron HCl (Zofran Inj) 4 mg NOW STAT IV 07/02/17 20:10 07/02/17 20:30 DC 07/02/17 20:47 4 MG Morphine Sulfate (MoRPHine SULFATE INJ) 4 mg NOW STAT IV 07/02/17 20:10 07/02/17 20:30 DC 07/02/17 20:48 4 MG Calcium Carbonate (Tums Chew Tab) 500 mg ONE STAT PO 07/02/17 21:19 07/02/17 21:20 DC 07/02/17 21:31 500 MG Morphine Sulfate (MoRPHine SULFATE INJ) 4 mg NOW STAT IV 07/02/17 22:24 07/02/17 22:25 DC 07/02/17 22:44 4 MG Tamsulosin HCl (Flomax Cap) 0.4 mg NOW ONCE PO 07/03/17 00:00 07/03/17 00:01 DC 07/03/17 00:00 0.4 MG Oxycodone/ Acetaminophen (Percocet 5-325mg Tab) 1 tab NOW STAT PO 07/02/17 23:50 07/02/17 23:53 DC 07/03/17 00:00 1 TAB (Mary Grace Muhammad, DO) ED Course 1934: The patient was evaluated in room A4. A complete history and physical exam was performed. 2027: Labs and imaging ordered. Patient made NPO, and given IV morphine and Zofran 2104: Patient was re-evaluated. Pain down in intensity to 3/10. However, oral contrast creating some abdominal discomfort. At this time, patient declining analgesia or anti-emetic, but requesting Tums for indigestion. 2115: IVF ordered (Alka. Serrano MD) 2350: I updated the patient at bedside on the results of both her labs as well as CAT scan. Patient has previously had several kidney stones, several which she was able to spontaneously pass, however several did require lithotripsy and ureteral stenting. Patient states pain is still a 5 out of 10 and she still has some persistent nausea. We will attempt to control patient's nausea and pain better, and if this can be achieved and patient does not have any fevers, will plan for discharge. Patient comfortable with discharge and close outpatient follow-up. (Mary Grace Muhammad DO) Medical Decision Prior records/ancillary studies reviewed. Triage Nursing notes reviewed. Additional history obtained from patient. The patient's history was concerning for abdominal pain. Differential diagnosis: Etiologies such as appendicitis, diverticulitis, PUD, biliary pathology, UTI, pancreatitis, obstruction, mesenteric ischemia, aortic pathology, infections, inflammatory bowel disease, renal colic, visceral fistula, as well as others were entertained. Physical examination findings: As above. ER treatment provided: IV Zofran, IV morphine, PO calcium carbonate On reassessment the patient felt better. Diagnostics interpreted by me: The labs revealed normal CBC, BMP (except mild dehydration), LFT, and Lipase. UA 2+ for blood with >30 RBC, trace leuks, but evidence of contamination. Imaging studies: CT abd/pelv: 5 x 4 x 5 mm calculus of the proximal left ureter just distal to the ureteropelvic junction causes mild obstructive uropathy plus additional nonobstructing renal calculi are present bilaterally. Consultation: By the evaluation outlined above emergent etiologies such as appendicitis, diverticulitis, PUD, biliary pathology, UTI, pancreatitis, obstruction, mesenteric ischemia, aortic pathology, infections, inflammatory bowel disease, as well as others were deemed relatively unlikely. The patient informed about the findings as listed above. All questions were answered and she was pleased with the treatment. Return instructions were outlined and the patient was discharged in stable condition. Outpatient prescription management: Tamsulosin. Zofran. Percocet Referral: The patient was referred back to their primary care physician for follow-up in 2 to 3 days for a recheck of the current condition. (Alka. Serrano MD) Impression Primary Impression: Abdominal pain Additional Impressions: Ureterolithiasis Hematuria Departure Information Dispostion Home / Self-Care Condition GOOD Prescriptions Ondansetron Odt (ZOFRAN ODT) 8 Mg Tab 8 MG SL Q6H, #20 TAB Prov: Mary Grace Muhammad, 07/03/17 Oxycodone/Acetaminophen 5MG/325MG (PERCOCET 5MG/325MG) Tab 1 TAB PO Q4H Y for Pain, #20 TAB Prov: Mary Grace Muhammad, DO 07/03/17 Tamsulosin Hcl (FLOMAX) 0.4 Mg Cap 0.4 MG PO DAILY, #10 CAP Prov: Mary Grace Muhammad, DO 07/03/17 Referrals Anette Vences M.D. (PCP) Patient Instructions [facility] Additional Instructions Please call and follow up with your family doctor and urology. Please strain your urine daily to watch for passage of the stone. Please take the Flomax daily until he passed the kidney stone and then he may stop. You may use the pain medication and nausea medication as provided. If you have any worsening pain, are unable to urinate, develop vomiting, fevers, or you have any other new concerns, please return the emergency room. Resident Tracking Resident Involvement: Resident Care Provided Care Provided: Adult ED (Alka. Serrano MD) Resident Involvement: Resident Care Provided Care Provided: Adult ED (Mary Grace Muhammad, ) Problem Qualifiers Primary Impression: Abdominal pain Abdominal location: left lower quadrant Qualified Codes: R10.32 - Left lower quadrant pain Additional Impressions: Hematuria Hematuria type: unspecified type Qualified Codes: R31.9 - Hematuria, unspecified
[2017-07-02] MEDS ORDERED: MoRPHine SULFATE 4 MG/ML 1 ML CARP\\VIAL IV STA ×2 (20:10→22:24)
[2017-07-02] MEDS ORDERED: ONDANSETRON INJ 2 MG/ML 2 ML VIAL IV STA (20:10)
[2017-07-02] MEDS ORDERED: OMAL150S INJ (20:11)
[2017-07-02] MEDS ORDERED: TOPI1CAP3 PO (20:11)
[2017-07-02 20:41] LABS: BASO % 0.5 %; BASO ABS # 0.03 K/uL (0-0.2); COMPLETE YES; EOS % 0.6 %; HEMATOCRIT 38.2 % (37-47); IG% 0.3 %; LYMPH % 35.7 %; LYMPH ABS # 2.25 K/uL (1.2-3.4); MEAN CELL VOLUME 86.2 fL (80-100); MEAN CORPUSCULAR HEMOGLOBIN 29.3 pg (25-34); MEAN PLATELET VOLUME 10.5 fL (7.4-10.4); NEUT % 56.9 %; PLATELET COUNT 238 K/uL (130-400); RED BLOOD COUNT 4.43 M/uL (4.2-5.4); WHITE BLOOD COUNT 6.31 K/uL (4.8-10.8)
[2017-07-02 20:43] LABS: URINE APPEARANCE CLEAR (CLEAR); URINE BILIRUBIN NEG (NEG); URINE COLOR YELLOW; URINE EPITHELIAL CELL AUTO >30 /lpf (0-5); URINE NITRITE NEG (NEG); URINE SPECIFIC GRAVITY 1.024 (1.000-1.030); UROBILINOGEN NEG (NEG); ZZUR CULT IF INDIC CLEAN CATCH NO
[2017-07-02 20:44] LABS: MANUAL MICROSCOPIC REQUIRED? NO; REVIEW REQ? NO
[2017-07-02] MEDS ORDERED: OPTIRAY 320 IV PRN (20:45)
[2017-07-02 20:56] LABS: ISTAT CREATININE 0.6 mg/dl (0.6-1.3); ISTAT HEMOGLOBIN 12.9 g/dl (12.0-16.0); ISTAT IONIZED CALCIUM 1.17 mmol/l (1.12-1.32)
[2017-07-02] MEDS ORDERED: SODIUM CHLORIDE 0.9% 500ML 500 ML IV SCH (21:00)
[2017-07-02 21:03] LABS: CALCIUM 8.5 mg/dl (8.5-10.1); CREATININE 0.67 mg/dl (0.60-1.20); POTASSIUM 3.5 mmol/L (3.5-5.1)
[2017-07-02] MEDS ORDERED: CALCIUM CARBONATE 500 MG CHEWABLE PO STA (21:19)
[2017-07-02] MEDS ORDERED: OXYCODONE/ACETAMINOPHEN 5-325 TAB PO STA (23:50)
[2017-07-03] MEDS ORDERED: TAMSULOSIN HCL 0.4 MG CAP PO ONE
--- NOTE | 2017-07-03 00:31 | EMERGENCY ROOM VISIT NOTE ---
ED Visit Note First contact with patient: 19:36 Patient seen and examined at bedside. Case was discussed with the resident following her initial interview and physical exam, discussion of possible differential diagnosis, as well as labs and imaging Tino ordered. Patient received several doses of pain and nausea medication while here, did receive IV fluids. I then personally updated the patient at bedside myself on labs and imaging results. Reexam on the patient, she was still having mild right-sided abdominal tenderness. Otherwise exam was unremarkable. Additional medications added. If patient's pain and nausea can be controlled, and she has no fevers or other new or concerning symptoms, I feel patient could be safely discharged outpatient follow-up. Patient has had several prior kidney stones, some of which have been able to be passed spontaneously others have required lithotripsy and ureteral stenting. No evidence of concurrent infection, no evidence of renal dysfunction, no evidence of bacteremia/sepsis.
[2017-07-03] MEDS ORDERED: ONDANSETRON 8 MG/54 ML D5W IV STA (00:32)
[2017-07-03] MEDS ORDERED: TAMS0.4C38 PO (00:34)
[2017-07-03] MEDS ORDERED: ONDA8TAB13 SL (00:34)
[2017-07-03] MEDS ORDERED: OXYC-57 PO (00:34)
[2017-07-03 00:53] VITALS: BP 102/60; PULSE 74; O2SAT 96
--- NOTE | 2017-07-03 06:36 | DIAGNOSTIC IMAGING REPORT ---
ABD/PELVIS IV AND ORAL CONT HISTORY: 37 years-old Female acute abdominal pain L>R, r/o rectal/bladder fistula COMPARISON: CT abdomen and pelvis 02/13/2017 TECHNIQUE: Multiple axial CT images of the abdomen and pelvis were obtained following the intravenous administration of 94 ml Optiray 320. Oral contrast was also used. A dose lowering technique was used consistent with the principals of TRAVIS. FINDINGS: There is mild dependent bibasilar atelectasis. No pneumoperitoneum. Imaged inferior cardiac chambers are unremarkable. There is suggested fatty infiltration of the liver. Prior cholecystectomy. The spleen, pancreas and adrenal glands appear normal. There is a 4 mm nonobstructing calculus of the superior pole right kidney. There is a 5 x 4 x 5 mm calculus of the proximal left ureter just distal to the ureteropelvic junction which causes mild obstructive uropathy. Additionally, there is a punctate nonobstructing calculus of the inferior pole left kidney. Distal ureters, urinary bladder are unremarkable. Prior hysterectomy. There is no evidence of colovesicular fistula. The abdominal aorta is normal in course and caliber. No bulky adenopathy. There is no bowel obstruction. No evidence of acute appendicitis. Soft tissues are unremarkable. Bones are intact. IMPRESSION: 1. 5 x 4 x 5 mm calculus of the proximal left ureter just distal to the ureteropelvic junction causes mild obstructive uropathy. 2. Additional nonobstructing renal calculi are present bilaterally as above. 3. Prior cholecystectomy and hysterectomy. The above report was generated using voice recognition software. It may contain grammatical, syntax or spelling errors. Electronically signed by: Curtis Soto M.D. 07/03/2017 6:35 AM Dictated Date/Time: 07/03/2017 6:29 AM
== END 2017-07-03 00:50 | disposition home or self-care (01) ==
LOC: C.EDB 19:11 → C.EDA 07-03 00:50
DX: N20.2 Calculus of kidney with calculus of ureter (principal); R31.9 Hematuria, unspecified; E78.5 Hyperlipidemia, unspecified; Z87.440 Personal history of urinary (tract) infections; Z87.442 Personal history of urinary calculi; Z90.49 Acquired absence of other specified parts of digestive tract; Z79.899 Other long term (current) drug therapy; Z80.9 Family history of malignant neoplasm, unspecified; Z83.3 Family history of diabetes mellitus; Z82.49 Family history of ischemic heart disease and other diseases of the circulatory system; Z88.6 Allergy status to analgesic agent; Z88.8 Allergy status to other drugs, medicaments and biological substances

== ENCOUNTER 2017-09-03 17:21 | Emergency (ER) | payer OTHER, BC ==
[~2017-09-03] VITALS: Ht 165.1 cm; Wt 88.4 kg
[~2017-09-03 17:21] MED LIST changes: +OMAL150S INJ; +OXYC-57 PO; +TOPI1CAP3 PO; -TOPI50TA16 PO
[2017-09-03 17:33] VITALS: TEMP 36.8; Ht 165.1 cm; Wt 88.4 kg
[2017-09-03] MEDS ORDERED: CYAN100020 PO (17:59)
[2017-09-03] MEDS ORDERED: EFF/375 PO (17:59)
[2017-09-03] MEDS ORDERED: RIBO1TAB4 PO (17:59)
[2017-09-03] MEDS ORDERED: EST5 PO (17:59)
[2017-09-03] MEDS ORDERED: EPIN1INJ37 IM (17:59)
[2017-09-03] MEDS ORDERED: ONDANSETRON INJ 2 MG/ML 2 ML VIAL IV STA (18:02)
[2017-09-03] MEDS ORDERED: SODIUM CHLORIDE 0.9% 1000ML 1,000 ML IV STA (18:02)
[2017-09-03] MEDS ORDERED: ALPR-411 PO (18:11)
[2017-09-03] MEDS ORDERED: MoRPHine SULFATE 4 MG/ML 1 ML CARP\\VIAL IV STA (18:12)
[2017-09-03 18:16] LABS: BASO % 0.4 %; BASO ABS # 0.03 K/uL (0-0.2); COMPLETE YES; EOS % 0.6 %; HEMATOCRIT 42.7 % (37-47); IG% 0.3 %; LYMPH % 38.7 %; LYMPH ABS # 3.07 K/uL (1.2-3.4); MEAN CELL VOLUME 85.6 fL (80-100); MEAN CORPUSCULAR HEMOGLOBIN 28.1 pg (25-34); MEAN CORPUSCULAR HGB CONC 32.8 g/dl (32-36); MEAN PLATELET VOLUME 10.2 fL (7.4-10.4); MONO % 6.1 %; NEUT % 53.9 %; PLATELET COUNT 281 K/uL (130-400); RED BLOOD COUNT 4.99 M/uL (4.2-5.4); WHITE BLOOD COUNT 7.93 K/uL (4.8-10.8)
[2017-09-03 18:22] LABS: URINE APPEARANCE CLEAR (CLEAR); URINE BILIRUBIN NEG (NEG); URINE COLOR YELLOW; URINE NITRITE NEG (NEG); URINE SPECIFIC GRAVITY 1.015 (1.000-1.030); UROBILINOGEN NEG (NEG)
[2017-09-03 18:24] LABS: MANUAL MICROSCOPIC REQUIRED? NO; REVIEW REQ? NO
[2017-09-03 18:37] LABS: ALT/SGPT 49 U/L (12-78); AST/SGOT 26 U/L (15-37); BLOOD UREA NITROGEN 12 mg/dl (7-18); CALCIUM 8.9 mg/dl (8.5-10.1); CARBON DIOXIDE 29 mmol/L (21-32); CHLORIDE 104 mmol/L (98-107); CREATININE 0.69 mg/dl (0.60-1.20); GLUCOSE 93 mg/dl (70-99); POTASSIUM 3.5 mmol/L (3.5-5.1); SODIUM 139 mmol/L (136-145)
[2017-09-03 18:40] LABS: ALKALINE PHOSPHATASE 91 U/L (45-117)
--- NOTE | 2017-09-03 18:44 | DIAGNOSTIC IMAGING REPORT ---
CT OF THE ABDOMEN AND PELVIS WITHOUT CONTRAST, STONE PROTOCOL CLINICAL HISTORY: Right flank pain, hematuria and nausea. COMPARISON STUDY: CT of the abdomen and pelvis July 02, 2017. TECHNIQUE: Helical axial images of the abdomen and pelvis were obtained without IV or oral contrast according to renal stone protocol. A dose lowering technique was utilized adhering to the principles of ALARA. FINDINGS: Several bilateral renal calculi are noted, the largest of which is a 4 mm calculus within the upper pole of the right kidney. There are no ureteral calculi. The left ureteral calculus shown on exam of July 02, 2017 has passed. Mild left collecting system dilatation has improved since prior exam. Fatty infiltration of the liver is noted. There is no biliary ductal dilatation status post cholecystectomy. Evaluation the remainder of the abdomen and pelvis is suboptimal on this unenhanced exam. Unenhanced images of the spleen, adrenal glands and pancreas are normal. The appendix is normal. There is no bowel obstruction. No ascites or lymphadenopathy is present. The uterus is likely surgically absent. There are no suspicious osseous lesions. IMPRESSION: 1. Bilateral nephrolithiasis. No ureteral calculi. Interval passage of the left ureteral calculus shown on CT of July 02, 2017. Mild left collecting system dilatation which is decreased when compared to prior exam. Decreased sensitivity for detection of urothelial lesions on this unenhanced exam. 2. No acute process within the abdomen or pelvis on unenhanced exam. Normal appendix. 3. Fatty liver. Electronically signed by: Chang Lopez M.D. 09/03/2017 6:43 PM Dictated Date/Time: 09/03/2017 6:35 PM
[2017-09-03 19:24] VITALS: BP 136/70; PULSE 66; O2SAT 98
--- NOTE | 2017-09-05 12:34 | EMERGENCY ROOM VISIT NOTE ---
ED Visit Note First contact with patient: 17:43 Chief Complaint: My right side hurts. History of Present Illness: Ms. Bruner is a 37-year-old white female who ambulates into the ED complaining of right flank pain. Historically patient has a history of kidney stones. Patient reports a gradual onset of right flank pain that started approximately 4 -5 hours before she arrived in the emergency department. Since that time her pain has been constant and gradually increasing in intensity. She describes her pain as a sharp sensation. She rates her discomfort 5/10. Her pain is minimally radiating down into the lower back. She has not identified any aggravating or alleviating factors related to the pain. She has been using acetaminophen without relief of her discomfort. Associated with her pain she has been nauseated but has not vomited and she reports she did not have a bowel movement for 3 days. She denies fevers, chills, sweats, skin eruptions, skin color changes, headache , dizziness, lightheadedness, upper respiratory tract symptoms, cough, wheezing , shortness of breath, upper back pain, abdominal pain, diarrhea, urinary symptoms, hematuria, vaginal bleeding, vaginal discharge, rectal/genital paresthesias, bowel and bladder dysfunction, lower extremity weakness/numbness/ tingling. Review of Systems: As noted above in history of present illness. All body systems were reviewed and found to be negative as noted above. Past Medical History: As previously noted, status post hysterectomy and cholecystectomy. Current Medications: Alprazolam, Effexor, estradiol, epinephrine, riboflavin, vitamin B12. Allergies to Medications: Ibuprofen, Naprosyn, NSAIDs. Social History: Patient is currently employed; she feels safe in her home environment; she admits to tobacco use and denies alcohol use. Physical Examination: Vital Signs: Date Time Temp Pulse Resp B/P (MAP) Pulse Ox O2 Delivery O2 Flow Rate FiO2 09/03/17 19:24 66 16 136/70 98 09/03/17 17:33 36.8 76 16 113/74 98 Room Air GENERAL: 37-year-old female in mild to moderate distress due to pain, nontoxic- appearing, afebrile and hemodynamically stable. NEUROLOGICAL: Awake, alert and oriented to person, place and time. Answering questions appropriately and following commands. Normal gait. Good hand eye coordination. No focal motor sensory deficits. SKIN: Warm, dry and pink. No soft tissue eruptions or trauma noted. HEENT: Atraumatic and normocephalic. PERRLA. Sclera white and conjunctiva pink. No drainage from naris. Oral cavity moist and pink. Pharynx is nonerythematous or edematous. Speech normal. No lymphadenopathy. Trachea midline. No jugular venous distention. BACK: No tenderness over the bony spine. No CVA tenderness. Full range of motion of the cervical spine. No tenderness over the thoracic or lumbar bony spine. No tenderness or muscle spasm within the paraspinous muscles. THORAX: Lungs sounds are clear to auscultation and equal bilaterally with symmetrical chest wall. No wheezing, rales or rhonchi. No crepitus, tenderness , subcutaneous air or deformities noted. HEART: Regular rate and rhythm. No gallops, rubs or murmurs are appreciated. ABDOMEN: Flat, soft and nontender. Positive bowel sounds in all quadrants. No guarding, rigidity or organomegaly. EXTREMITIES: Moves all extremities well on command and with purpose. All distal neurovascular statuses are intact and equal bilaterally. No calf tenderness or cords. ED Course: Patient is assessed as noted above. Patient's medication list was reviewed. Laboratory Testing: Test 09/03/17 18:00 Range/Units White Blood Count 7.93 4.8-10.8 K/uL Red Blood Count 4.99 4.2-5.4 M/uL Hemoglobin 14.0 12.0-16.0 g/dL Hematocrit 42.7 37-47 % Mean Corpuscular Volume 85.6 80-100 fL Mean Corpuscular Hemoglobin 28.1 25-34 pg Mean Corpuscular Hemoglobin Concent 32.8 32-36 g/dl Platelet Count 281 130-400 K/uL Mean Platelet Volume 10.2 7.4-10.4 fL Neutrophils (%) (Auto) 53.9 % Lymphocytes (%) (Auto) 38.7 % Monocytes (%) (Auto) 6.1 % Eosinophils (%) (Auto) 0.6 % Basophils (%) (Auto) 0.4 % Neutrophils # (Auto) 4.28 1.4-6.5 K/uL Lymphocytes # (Auto) 3.07 1.2-3.4 K/uL Monocytes # (Auto) 0.48 0.11-0.59 K/uL Eosinophils # (Auto) 0.05 0-0.5 K/uL Basophils # (Auto) 0.03 0-0.2 K/uL RDW Standard Deviation 39.7 36.4-46.3 fL RDW Coefficient of Variation 12.7 11.5-14.5 % Immature Granulocyte % (Auto) 0.3 % Immature Granulocyte # (Auto) 0.02 0.00-0.02 K/uL Urine Color YELLOW Urine Appearance CLEAR CLEAR Urine pH 7.0 4.5-7.5 Urine Specific [place] 1.015 1.000-1.030 Urine Protein NEG NEG Urine Glucose (UA) NEG NEG Urine Ketones NEG NEG Urine Occult Blood NEG NEG Urine Nitrite NEG NEG Urine Bilirubin NEG NEG Urine Urobilinogen NEG NEG Urine Leukocyte Esterase NEG NEG Sodium Level 139 136-145 mmol/L Potassium Level 3.5 3.5-5.1 mmol/L Chloride Level 104 98-107 mmol/L Carbon Dioxide Level 29 21-32 mmol/L Anion Gap 6.0 3-11 mmol/L Blood Urea Nitrogen 12 7-18 mg/dl Creatinine 0.69 0.60-1.20 mg/dl Est Creatinine Clear Calc Drug Dose 120.2 ml/min Estimated GFR () 127.1 Estimated GFR (Non- 109.7 BUN/Creatinine Ratio 17.0 10-20 Random Glucose 93 70-99 mg/dl Calcium Level 8.9 8.5-10.1 mg/dl Total Bilirubin 0.4 0.2-1 mg/dl Direct Bilirubin < 0.1 0-0.2 mg/dl Aspartate Amino Transf (AST/SGOT) 26 15-37 U/L Alanine Aminotransferase (ALT/SGPT) 49 12-78 U/L Alkaline Phosphatase 91 45-117 U/L Total Protein 8.1 6.4-8.2 gm/dl Albumin 4.1 3.4-5.0 gm/dl Lipase 183 73-393 U/L Noncontrast Abdominal/Pelvic CT: A CT was reviewed by myself and read by the radiologist showing bilateral nephrolithiasis without ureter calculus. Additionally noted was a mild left collection system dilated compared to previous of questionable etiology. No acute process within the abdomen or pelvis. Normal-appearing appendix and fatty liver. I did note there was a mild increase of stool within the colon. Patient was hydrated with normal saline and received 4 mg of morphine IV for pain and 4 mg of Zofran IV for nausea. Patient was reassessed multiple times during her stay in the emergency department. Patient's case was reviewed with Dr. Blanco; we agreed on diagnostic approach, treatment, disposition and plan. Patient was educated about today's findings and instructed on her treatment plan ; she verbalizes understanding and agreement with this plan. Clinical Impression: Right flank pain. Decision-Making: Initially my differential diagnosis I considered pyelonephritis , ureter calculus, muscle strain, muscle spasm, pancreatitis and other causes. Disposition: Patient discharged home in stable condition accompanied by a friend ; prior to departure she was reassessed and subjectively reported she was pain and symptom-free. Plan: Patient was encouraged use 650 mg of acetaminophen every 6 hours as needed for pain. Patient was encouraged to stay well-hydrated with increased clear fluids. Patient was encouraged to use [id number] MiraLAX and Colace once a day until return of normal bowel movements. Patient was encouraged to increase dietary fiber with in her diet. Patient was encouraged to follow-up with her family physician for recheck if no better in 3-5 days. Patient was encouraged return the ED for worsening pain, fevers, vomiting, bloody stools or any new/concerning symptoms.
== END 2017-09-03 19:25 | disposition home or self-care (01) ==
LOC: C.EDB 17:22 → C.EDC 19:25
DX: R10.30 Lower abdominal pain, unspecified (principal); Z87.442 Personal history of urinary calculi; Z90.710 Acquired absence of both cervix and uterus; Z90.49 Acquired absence of other specified parts of digestive tract; Z79.899 Other long term (current) drug therapy; Z72.0 Tobacco use

== ENCOUNTER → 2018-01-20 | Outpatient (CLI) | payer OTHER, BC ==
[~2018-01-20] MED LIST changes: +ALPR-411 PO; -B-CO1CAP17 PO; -CETI10TA84 PO; +CYAN100020 PO; +EFF/375 PO; +EPIN0.3I14 IM; -EPP3/2 INJ; +EST5 PO; -ESTR0.5T3 PO; +GADAVIST IV PRN; -OMAL150S INJ; -OXYC-57 PO; -PROC1TAB5 PO; +RIBO1TAB4 PO; -TOPI1CAP3 PO; -VENL37.593 PO; -ZNTT/150 PO; -[UNRECOGNIZED DRUG - CODE] PO
--- NOTE | 2018-01-20 18:19 | DIAGNOSTIC IMAGING REPORT ---
MRI OF THE BRAIN WITHOUT AND WITH IV CONTRAST CLINICAL HISTORY: R51 [id number] INCREASING HEADACHES AND LEFT SIDED FACIAL NUMBNESS COMPARISON STUDY: December 12, 2015 TECHNIQUE: MRI of the brain was performed from the vertex to the skull base utilizing various T1 and T2 weighted sequences. Following the IV administration of 8 mL of Gadavist contrast, additional enhanced images were obtained. FINDINGS: Sagittal T1, axial diffusion, proton density and T2 weighted axial, coronal FLAIR, and pre and post axial T1-weighted images were acquired. These were supplemented with post gadolinium coronal T1 weighted images. No intra or extra-axial mass lesions are visualized. Axial diffusion-weighted images reveal no evidence of acute or subacute infarction. There is no evidence of ventricular dilatation. Proton density T2-weighted and FLAIR images reveal no significant intraparenchymal signal abnormalities There are no abnormal flow voids. There is no evidence of pathologic enhancement. IMPRESSION: Normal MRI of the brain. Electronically signed by: Rafael Ch M.D. 01/20/2018 6:18 PM Dictated Date/Time: 01/20/2018 6:16 PM
== END | disposition home or self-care (01) ==
LOC: C.MRI 17:39
PROVIDERS: ATTEND Physician Assistant
DX: R51 Headache (principal)

== ENCOUNTER → 2018-01-20 | Outpatient (CLI) | payer OTHER, BC ==
[~2018-01-20] MED LIST changes: -GADAVIST IV PRN
--- NOTE | 2018-01-21 17:17 | EEG Procedure Note ---
EEG Procedure Note Date of Service Jan 20, 2018. Start / End Times Start Time: 8:26 AM End Time: 8:46 AM Referring Physician JANETH Marquez History This is a 37-year-old female with headaches, metallic taste, and left-sided facial sensory changes. EEG for further evaluation of possible seizure etiology. Home Medication List Scheduled Cyanocobalamin (Vitamin B12), 1,000 MCG PO DAILY Estradiol (Estradiol), 0.5 MG PO DAILY Riboflavin (Riboflavin), 400 MG PO DAILY Venlafaxine Hcl (Effexor), 18.75 MG PO DAILY Scheduled PRN Alprazolam (Alprazolam), 0.5 MG PO DAILY PRN for Anxiety Epinephrine (Epinephrine), 0.3 MG IM UD PRN for ALLERGIC REACTION Description This is a 21 electrode EEG with a single channel dedicated to limited EKG. The electrodes were placed in accordance with the International 10-20 system. At the start of the recording the patient was in an awake state. Background was well organized and composed of symmetric mixed alpha and beta frequencies. There was a symmetric well-formed moderate amplitude 10-11 Hz posterior dominant rhythm that was reactive to eye opening and closure. Hyperventilation with good effort produced no abnormalities. Intermittent photic stimulation at various frequencies produced no abnormalities. Sleep was indicated by vertex waves and symmetric sleep spindles. Interpretation This is a normal awake and asleep routine EEG. There was no electrographic seizures or epileptiform discharges. Clinical Correlation A normal EEG does not rule out epilepsy if there is a strong clinical suspicion.
== END | disposition home or self-care (01) ==
LOC: C.NEUR 07:59
PROVIDERS: ATTEND Physician Assistant
DX: R43.8 Other disturbances of smell and taste (principal)

== ENCOUNTER → 2018-03-01 | Outpatient (CLI) | payer OTHER, BC ==
[~2018-03-01] MED LIST changes: +CHOL20009 PO
--- NOTE | 2018-03-01 16:38 | DIAGNOSTIC IMAGING REPORT ---
CT SCAN OF THE ABDOMEN AND PELVIS WITHOUT IV CONTRAST CLINICAL HISTORY: Right-sided abdominal pain. COMPARISON STUDY: Abdominal CT dated 09/03/2017. TECHNIQUE: CT scan of the abdomen and pelvis is performed from the lung bases to the proximal femora. Images are reviewed in the axial, sagittal, and coronal planes. IV contrast was not administered for this examination. A dose lowering technique was utilized adhering to the principles of ALARA. CT DOSE: 1158.80 mGycm FINDINGS: Lung bases: The heart is normal in size and without pericardial effusion. The lung bases are clear noting dependent atelectasis. Liver: The unenhanced liver is enlarged, measuring 20.6 cm in length. The liver demonstrates diffusely diminished attenuation consistent with severe hepatic steatosis. There is no intrahepatic biliary ductal dilatation. Gallbladder: Surgically absent noting clips in the gallbladder fossa. Spleen: Mildly enlarged, measuring 13.4 cm in length. Pancreas: Unremarkable. Adrenal glands: Unremarkable. Kidneys: The unenhanced kidneys are normal in size and without hydronephrosis. A 4 mm nonobstructing calculus is present in the right upper pole. A 2 mm nonobstructing calculus is seen in the left kidney. There is no evidence of contour deforming renal mass lesion. Abdominal vasculature: The abdominal aorta is normal in course and caliber. Bowel: The small bowel and colon are normal in course and caliber. The appendix is well-visualized and normal. Peritoneum: There is no intraperitoneal free air or abdominal ascites. There is a small fat-containing umbilical hernia. Lymphadenopathy: None. Pelvic viscera: The bladder is normal as visualized. The uterus is surgically absent. No adnexal lesion is seen. Skeletal structures: No lytic or blastic lesions are seen. IMPRESSION: 1. There are no acute infectious or inflammatory findings in the abdomen or pelvis. 2. Small bilateral nonobstructing renal calculi are unchanged from previous. 3. Hepatomegaly and severe hepatic steatosis. 4. Mild splenomegaly. Electronically signed by: Ernst Awad M.D. 03/01/2018 4:37 PM Dictated Date/Time: 03/01/2018 4:30 PM
== END | disposition home or self-care (01) ==
LOC: C.CTS 15:55
PROVIDERS: ATTEND Physician Assistant
DX: R11.0 Nausea (principal); R10.31 Right lower quadrant pain; N20.0 Calculus of kidney; R16.0 Hepatomegaly, not elsewhere classified; K76.0 Fatty (change of) liver, not elsewhere classified

== ENCOUNTER → 2018-03-15 | Day surgery (SDC) | payer OTHER, BC ==
[2018-03-08 11:50] VITALS: Ht 175.3 cm; Wt 86.4 kg
[~2018-03-15] VITALS: Ht 175.3 cm; Wt 86.4 kg
[~2018-03-15] MED LIST changes: -ALPR-411 PO; -EFF/375 PO; +SODIUM CHLORIDE 0.9% 500ML 500 ML IV ONE
--- NOTE | 2018-03-15 09:38 | Endo History and Physical ---
History & Physical Date of Service: Mar 15, 2018. Chief Complaint: Family history of polyps Referring Physician: Anette Vences History of Present Illness 38 yo CF who presents for colonoscopy secondary to family history of colon polyps. Past Surgical History Hx Cardiac Surgery: No Hx Internal Defibrillator: No Hx Pacemaker: No Hx Abdominal Surgery: Yes (JO BSO, [place]) Hx of Implantable Prosthesis: No Hx Post-Op Nausea and Vomiting: No Hx Cancer Surgery: No Hx Thoracic Surgery: No Hx Orthopedic: No Hx Urinary Tract Surgery: Yes (URETAL STENT PLACED AND REMOVED, LITHOTRIPSY) Family History Esophogeal CA Social History Smoking Status: Former Smoker Hx Substance Use: No Hx Alcohol Use: Yes (OCCASIONALLY) Allergies Coded Allergies: Ibuprofen (Verified Allergy, Severe, ANAPHYLATIC SHOCK, 03/15/18) NSAIDs (Verified Allergy, Severe, anaphylatic shock, 03/15/18) Naproxen (Verified Allergy, Severe, ANAPHYLATIC SHOCK, 03/15/18) Current Medications Reported Home Medications Medications Dose Route/Sig Max Daily Dose Days Date Category Vitamin D (Cholecalciferol) 2,000 Unit Tab 1 Tab PO DAILY 03/08/18 Reported Vitamin B12 (Cyanocobalamin) 1,000 Mcg Tab 1,000 Mcg PO DAILY 09/03/17 Reported Riboflavin 400 Mg Tab 400 Mg PO DAILY 09/03/17 Reported Epinephrine 0.3 Mg/0.3 Ml Inj 0.3 Mg IM UD PRN 09/03/17 Reported Estradiol 0.5 Mg Tab 0.5 Mg PO QPM 09/03/17 Reported Vital Signs Weight (Kilograms): 86.36 Height (Feet): 5 Height (Inches): 9 Date Time Temp Pulse Resp B/P (MAP) Pulse Ox O2 Delivery O2 Flow Rate FiO2 03/15/18 09:33 36.7 87 18 108/75 (86) 94 Room Air Physical Exam General Appearance: WD/WN, no apparent distress Respiratory/Chest: Auscultation: breath sounds normal Cardiovascular: Heart Auscultation: RRR Abdomen: Bowel Sounds: normal Inspection & Palpation: soft, non-distended, no tenderness, guarding & rebound Assessment and Plan Assessment: 38 yo CF who presents for colonoscopy secondary to family history of colon polyps. Plan: Proceed with colonoscopy.
--- NOTE | 2018-03-15 10:15 | Discharge Instructions ---
Endoscopy Patient Instructions Date / Procedure(s) Performed Mar 15, 2018. Colonoscopy Allergy Information Coded Allergies: Ibuprofen (Verified Allergy, Severe, ANAPHYLATIC SHOCK, 03/15/18) NSAIDs (Verified Allergy, Severe, anaphylatic shock, 03/15/18) Naproxen (Verified Allergy, Severe, ANAPHYLATIC SHOCK, 03/15/18) Discharge Date / Findings Mar 15, 2018. Rectal polyps Diverticulosis Internal hemorrhoids Medication Instructions OK to resume all medications today as prescribed Reported Home Medications Medications Dose Route/Sig Max Daily Dose Days Date Category Vitamin D (Cholecalciferol) 2,000 Unit Tab 1 Tab PO DAILY 03/08/18 Reported Vitamin B12 (Cyanocobalamin) 1,000 Mcg Tab 1,000 Mcg PO DAILY 09/03/17 Reported Riboflavin 400 Mg Tab 400 Mg PO DAILY 09/03/17 Reported Epinephrine 0.3 Mg/0.3 Ml Inj 0.3 Mg IM UD PRN 09/03/17 Reported Estradiol 0.5 Mg Tab 0.5 Mg PO QPM 09/03/17 Reported Provider Instructions Activity Restrictions - No exercising or heavy lifting for 24 hours. - Do not drink alcohol the day of the procedure. - Do not drive a car or operate machinery until the day after the procedure. - Do not make any important decisions or sign important papers in 24 hours after the procedure. Following Day: - Return to full activity which may include returning to work/school. Diet Start your diet with liquids and light foods (jello, soup, juice, toast). Then eat your usual diet if not nauseated. Treatment For Common After Affects For mild abdominal pain, bloating, or excessive gas: - Rest - Eat lightly - Lie on right side Follow-Up Information Follow-up with Anette Vences as scheduled Anesthesia Information What You Should Know You have had a procedure that required some medicine to reduce anxiety and discomfort. This treatment is called moderate sedation. After receiving the treatment, you may be sleepy, but you will be able to breathe on your own. The effects of the treatment may last for several hours. Follow these instructions along with Activity/Diet recommendations noted above: * Do NOT do anything where dizziness or clumsiness would be dangerous. * Rest quietly at home today, then you can be up and about tomorrow. * Have a responsible person stay with you the rest of today. * You may have had an I.V. today. If so, you may take the dressing off later today. Recommendations Call your doctor if: * Trouble breathing * Continuous vomiting for more than 24 hours * Temperature above 101 degrees * Severe abdominal pain or bloating * Pain not relieved by pain medicine ordered * There is increased drainage or redness from any incision * A large amount of rectal bleeding greater than 2-3 tablespoons. (If you had a polyp/s removed or have hemorrhoids, a small amount of blood - from the rectum is to be expected.) * You have any unanswered questions or concerns. IN THE EVENT OF A SERIOUS EMERGENCY, GO TO THE NEAREST EMERGENCY ROOM Your discharge instructions were prepared by provider Maurice Zeng. Patient Instructions Signature Page Elizabeth Franc Patient (or Guardian) Signature/Date: I have read and understand the instructions given to me by my caregivers. Caregiver/RN/Doctor Signature/Date: The above-named patient and/or guardian has received patient instructions on this date. + Original Patient Signature Page (only) stays with chart. Please make copy for patient.
[2018-03-15 10:43] VITALS: BP 94/64; PULSE 72; O2SAT 97
--- NOTE | 2018-03-15 10:50 | Anesthesiology Progress Note ---
Anesthesia Post Op Note Date & Time Mar 15, 2018 at 10:50 Vital Signs Pain Intensity: 0 Vital Signs Past 12 Hours Date Time Temp Pulse Resp B/P (MAP) Pulse Ox O2 Delivery O2 Flow Rate FiO2 03/15/18 10:28 73 18 100/71 (81) 100 Room Air 03/15/18 10:13 83 16 94/62 (73) 94 Room Air 03/15/18 09:33 36.7 87 18 108/75 (86) 94 Room Air Notes Mental Status: alert / awake / arousable, participated in evaluation Pt Amnestic to Procedure: Yes Nausea / Vomiting: adequately controlled Pain: adequately controlled Airway Patency, RR, SpO2: stable & adequate BP & HR: stable & adequate Hydration State: stable & adequate Anesthetic Complications: no major complications apparent
--- NOTE | 2018-03-15 10:55 | GI REPORT ---
Procedure Date: 03/15/2018 9:28 AM Procedure: Colonoscopy Indications: Family history of colonic polyps in a first-degree relative Medicines: Monitored Anesthesia Care Complications: No immediate complications. Estimated Blood Loss: Estimated blood loss: none. Procedure: Pre-Anesthesia Assessment: - Prior to the procedure, a History and Physical was performed, and patient medications and allergies were reviewed. The patient's tolerance of previous anesthesia was also reviewed. The risks and benefits of the procedure and the sedation options and risks were discussed with the patient. All questions were answered, and informed consent was obtained. Prior Anticoagulants: The patient has taken no previous anticoagulant or antiplatelet agents. ASA Grade Assessment: II - A patient with mild systemic disease. After reviewing the risks and benefits, the patient was deemed in satisfactory condition to undergo the procedure. After I obtained informed consent, the scope was passed under direct vision. Throughout the procedure, the patient's blood pressure, pulse, and oxygen saturations were monitored continuously. The scope was introduced through the anus and advanced to the terminal ileum. The colonoscopy was performed without difficulty. The patient tolerated the procedure well. The quality of the bowel preparation was good. The terminal ileum, ileocecal valve, appendiceal orifice, and rectum were photographed. Findings: The perianal and digital rectal examinations were normal. Two sessile polyps were found in the rectum. The polyps were 2 to 4 mm in size. These polyps were removed with a cold biopsy forceps. Resection and retrieval were complete. Multiple small-mouthed diverticula were found in the sigmoid colon. Non-bleeding internal hemorrhoids were found during retroflexion. The hemorrhoids were small. Impression: - Two 2 to 4 mm polyps in the rectum, removed with a cold biopsy forceps. Resected and retrieved. - Diverticulosis in the sigmoid colon. - Non-bleeding internal hemorrhoids. Recommendation: - Resume previous diet. - Continue present medications. - Repeat colonoscopy for surveillance based on pathology results. - Return to primary care physician as previously scheduled. Muarice Zeng, 03/15/2018 10:54:46 AM This report has been signed electronically. Note Initiated On: 03/15/2018 9:28 AM I attest to the content of the Intraoperative Record and orders documented therein, exceptions below
== END | disposition home or self-care (01) ==
LOC: C.GI 08:55
PROVIDERS: ATTEND Internal Medicine
DX: Z83.71 Family history of colonic polyps (principal); K62.3 Rectal prolapse; K62.1 Rectal polyp; K57.30 Diverticulosis of large intestine without perforation or abscess without bleeding; K64.8 Other hemorrhoids; Z87.891 Personal history of nicotine dependence; Z80.0 Family history of malignant neoplasm of digestive organs; Z88.6 Allergy status to analgesic agent; Z79.899 Other long term (current) drug therapy

== ENCOUNTER → 2018-07-15 | Outpatient (CLI) | payer OTHER, BC ==
[~2018-07-15] MED LIST changes: -SODIUM CHLORIDE 0.9% 500ML 500 ML IV ONE
[2018-07-15 13:30] LABS: ALBUMIN 4.1 gm/dl (3.4-5.0); ALKALINE PHOSPHATASE 100 U/L (45-117); ALT/SGPT 40 U/L (12-78); AST/SGOT 18 U/L (15-37); BLOOD UREA NITROGEN 15 mg/dl (7-18); CALCIUM 9.1 mg/dl (8.5-10.1); CARBON DIOXIDE 25 mmol/L (21-32); CHOLESTEROL 177 mg/dl (0-200); CREATININE 0.71 mg/dl (0.60-1.20); GLUCOSE 120 mg/dl (70-99); LDL CHOLESTEROL CALCULATED 83 mg/dl; POTASSIUM 4.2 mmol/L (3.5-5.1); SODIUM 138 mmol/L (136-145); TOTAL PROTEIN 8.2 gm/dl (6.4-8.2)
== END | disposition home or self-care (01) ==
LOC: C.LABBC 11:40
PROVIDERS: ATTEND Physician Assistant
DX: K90.41 Non-celiac gluten sensitivity (principal); R73.9 Hyperglycemia, unspecified

== ENCOUNTER 2021-11-28 08:49 | Inpatient (IN) ==
[2021-11-28] MEDS ORDERED: SODIUM CHLORIDE 0.9% 1000ML 1,000 ML IV ONE (09:16)
[2021-11-28] MEDS ORDERED: DEXAMETHASONE SOD INJ 4 MG/ML VIAL IV STA (09:16)
[2021-11-28] MEDS ORDERED: ALBUT/IPRATROP 3MG/0.5MG NEB 3 ML VIAL NEB STA (09:16)
[2021-11-28] MEDS ORDERED: BENZONATATE 100 MG CAPSULE PO ONE (09:18)
[2021-11-28] MEDS ORDERED: ONDANSETRON INJ 2 MG/ML 2 ML VIAL IV STA (09:33)
[2021-11-28] MEDS ORDERED: ONDANSETRON INJ 2 MG/ML 2 ML VIAL ONE (09:34)
[2021-11-28 09:41] LABS: Hematocrit (blood only) 40.4 % (37-47); Hemoglobin 13.7 g/dL (12.0-16.0); Mean Corpuscular Hemoglobin 27.7 pg (25-34); Mean Corpuscular Hgb Conc 33.9 g/dL (32-36); Mean Corpuscular Volume 81.8 fL (80-100); Platelet Count 258 K/uL (130-400); RDW Standard Deviation 39.4 fL (36.4-46.3); Red Blood Count 4.94 M/uL (4.2-5.4); White Blood Count 5.58 K/uL (4.8-10.8)
--- NOTE | 2021-11-28 09:41 | Emergency Department Note ---
History of Present Illness General Chief complaint: Dehydration Stated complaint: COVID+ 2 WEEKS, COUGH, DEHYDRATED Time Seen by Provider: 11/28/21 09:02 Source: patient Mode of arrival: ambulatory Limitations: no limitations History of Present Illness Provider complaint: Multiple complaints, Covid positive Onset (ago): day(s) 10 Maximum Pain Intensity: 4 Associated symptoms: + chest pain, + cough, + fever/chills, + headaches, + loss of appetite, + malaise, + nausea/vomiting, + shortness of breath and + weakness This is a 41-year-old female presents emergency department with multiple complaints and known Covid positive. Patient states she first began having symptoms on Thursday the , was diagnosed positive on November 19. She states her entire family has been sick with Covid although they all seem to be improving and she feels as though she is worsening. Patient states she has had fevers and chills, with a fever as high as 103 F. States she has had frequent episodes of coughing, typically nonproductive. She has had daily vomiting and diarrhea and is unable to keep anything down. She denies any blood in the emesis or stool. Patient states she has had body aches, fatigue, and weakness. Patient denies nasal congestion or rhinorrhea, denies loss of taste or smell. Patient states she was previously a smoker, however does not routinely need to use inhalers, no diagnosis of asthma or COPD. Patient states he was using OTC meds at home for the cough, however these do not seem to be helping. Patient is not vaccinated against Covid. Pt seen during a time of high acuity and national emergency pandemic while wearing PPE. Home Medications Medication Instructions Recorded Confirmed Type fremanezumab-vfrm 225 mg/1.5 mL 225 mg SQ MONTHLY #1.5 ml 07/03/20 11/28/21 Rx subcutaneous auto-injector (Ajovy) omalizumab 150 mg subcutaneous 0 mg SUBCUT MONTHLY 07/16/20 11/28/21 History solution (Xolair) cholecalciferol (vitamin D3) 25 25 mcg PO DAILY 07/17/20 11/28/21 History mcg (1,000 unit) capsule epinephrine 0.3 mg/0.3 mL 0.3 mg IM Q10M PRN 07/17/20 11/28/21 History injection, auto-injector estradiol 0.5 mg tablet 0.5 mg PO DAILY 07/17/20 11/28/21 History mecobalamin (vitamin B12) 1,000 1,000 mcg PO DAILY 07/17/20 11/28/21 History mcg chewable tablet Allergies Allergy/AdvReac Type Severity Reaction Status Date / Time ibuprofen Allergy Severe ANAPHYLATIC Verified 11/28/21 11:20 SHOCK naproxen Allergy Severe ANAPHYLATIC Verified 11/28/21 11:20 SHOCK NSAIDS (Non-Steroidal Allergy Severe anaphylatic Verified 11/28/21 11:20 Anti-Inflamma shock azithromycin [From Zithromax] Allergy Intermediate Redness of Verified 11/28/21 14:25 Skin Past Med/Surg History Medical History (Updated 11/28/21 @ 16:53 by Mary Grace Muhammad DO) Migraine with aura and without status migrainosus, not intractable Urticaria Vitamin D deficiency Surgical History H/O lithotripsy S/P cholecystectomy S/P hysterectomy Social History Smoking Status: Current some day smoker Tobacco Type: Cigarettes Feels Safe at Home: Yes Review of Systems A total of 10 systems reviewed and were otherwise negative All systems reviewed & are unremarkable except as noted in HPI & below Physical Exam Vital Signs Vital Signs - 24 hr 11/28/21 08:54 11/28/21 09:08 11/28/21 09:12 Temperature 37 C Temperature Source Temporal Artery Scan Pulse Rate 130 H Pulse Rate [Apical] 114 H Pulse Rate from SpO2 Sensor Respiratory Rate 18 20 Respiratory Effort / Characteristics Non-Labored Spontaneous Respiratory Depth Normal Respiratory Pattern Regular Blood Pressure 123/71 Blood Pressure [Right Arm] 122/77 Blood Pressure Mean 88 Blood Pressure Mean [Right Arm] 92 Pulse Oximetry 80 L 82 L 91 Oxygen Delivery Method Room Air Room Air Nasal Cannula Nasal Cannula Oxygen Flow Rate 0 4 Sepsis Recent Fever Within 48 Hours No Sepsis New/Unexplained Change in Mental Status No Sepsis Action Taken by Nursing No Action Required Oxygen Flow Rate - Titration 4 Pulse Oximetry Post Tiitration 91 11/28/21 09:29 11/28/21 09:30 11/28/21 10:00 Temperature Temperature Source Pulse Rate 124 H 113 H 125 H Pulse Rate [Apical] Pulse Rate from SpO2 Sensor 121 H 113 H 120 H Respiratory Rate 19 22 22 Respiratory Effort / Characteristics Respiratory Depth Respiratory Pattern Blood Pressure 125/69 148/67 H Blood Pressure [Right Arm] Blood Pressure Mean 87 94 Blood Pressure Mean [Right Arm] Pulse Oximetry 91 91 Oxygen Delivery Method Nasal Cannula Nasal Cannula Oxygen Flow Rate 4 4 Sepsis Recent Fever Within 48 Hours Sepsis New/Unexplained Change in Mental Status Sepsis Action Taken by Nursing Oxygen Flow Rate - Titration Pulse Oximetry Post Tiitration 11/28/21 11:00 11/28/21 11:30 Temperature Temperature Source Pulse Rate 103 H Pulse Rate [Apical] Pulse Rate from SpO2 Sensor 104 H Respiratory Rate 24 26 H Respiratory Effort / Characteristics Respiratory Depth Respiratory Pattern Blood Pressure 103/64 105/65 Blood Pressure [Right Arm] Blood Pressure Mean 77 78 Blood Pressure Mean [Right Arm] Pulse Oximetry 90 88 L Oxygen Delivery Method Nasal Cannula Oxygen Flow Rate 5 Sepsis Recent Fever Within 48 Hours Sepsis New/Unexplained Change in Mental Status Sepsis Action Taken by Nursing Oxygen Flow Rate - Titration Pulse Oximetry Post Tiitration GENERAL: alert, ill appearing, well nourished, no distress, non-toxic, NC in place at 4.5 lmp EYE EXAM: normal conjunctiva, PERRL and EOM's grossly intact OROPHARYNX: no exudate, no erythema, lips, buccal mucosa, and tongue normal and mucous membranes are moist NECK: supple, no nuchal rigidity, no adenopathy, non-tender LUNGS: Clear but decreased to auscultation. Normal chest wall mechanics, no w/r/r, coarse cough noted during exam HEART: no murmurs, S1 normal and S2 normal ABDOMEN: abdomen soft, non-tender, normo-active bowel sounds, no masses, no rebound or guarding. BACK: Back is symmetrical on inspection and there is no deformity, no midline tenderness, no CVA tenderness. SKIN: no rashes and no bruising UPPER EXTREMITIES: upper extremities are grossly normal. FROM, nml pulses b/l. LOWER EXTREMITIES: No pitting edema. FROM, nml pulses b/l. NEURO EXAM: Normal sensorium, cranial nerves II-XII grossly intact, normal speech, no gross weakness of arms, no gross weakness of legs. Gross sensation intact. Course Course 1011: Patient updated on results. States she does feel slightly improved after nebulizer treatment. Discussed CT scan. 1111: Discussed with Clarence Cabello PA-C with [facility] hospitalist service. Administered Medications Albuterol (Albuterol Hfa 8 Gm Inhaler) 1 puffs INH QIDR RADHA Stop: 12/28/21 14:59 Last Admin: 11/28/21 15:52 Dose: 1 puffs Documented by: [id number] Enoxaparin Sodium (Enoxaparin Inj 40 Mg/0.4 Ml Syr) 40 mg SQ DAILY RADHA Stop: 12/28/21 13:29 Last Admin: 11/28/21 16:13 Dose: 40 mg Documented by: [id number] Potassium Chloride/Sodium Chloride (Normal Saline W/20 Meq Kcl) 20 meq in 1,000 mls @ 100 mls/hr IV .Q10H RADHA Stop: 11/28/21 23:14 Last Admin: 11/28/21 16:12 Dose: 100 mls/hr Documented by: [id number] Ceftriaxone Sodium 2,000 mg/ (Dextrose) 70 mls @ 100 mls/hr IV DAILY RADHA; Protocol Stop: 12/05/21 13:29 Last Infusion: 11/28/21 14:06 Dose: 0 mls/hr Documented by: [id number] Admin: 11/28/21 13:43 Dose: 100 mls/hr Documented by: [id number] Ipratropium [place] (Ipratropium [place] Hfa Inhaler) 1 puffs INH QIDR RADHA Stop: 12/28/21 14:59 Last Admin: 11/28/21 15:52 Dose: 1 puffs Documented by: [id number] Discontinued Medications Albuterol (Albut/Ipratrop 3mg/0.5mg Neb 3 Ml Vial) 3 ml NEB NOW STA; Protocol Stop: 11/28/21 09:17 Last Admin: 11/28/21 09:31 Dose: 3 ml Documented by: [id number] Albuterol (Albuterol 0.083% Nebu Soln 3 Ml Vial) Confirm Administered Dose 2.5 mg .ROUTE .STK-MED ONE Stop: 11/28/21 12:16 Last Admin: 11/28/21 13:25 Dose: 2.5 mg Documented by: [id number] Benzonatate (Benzonatate 100 Mg Capsule) 100 mg PO NOW ONE Stop: 11/28/21 09:19 Last Admin: 11/28/21 09:28 Dose: 100 mg Documented by: [id number] Dexamethasone (Dexamethasone Sod Inj 4 Mg/Ml Vial) 6 mg IV NOW STA Stop: 11/28/21 09:17 Last Admin: 11/28/21 09:29 Dose: 6 mg Documented by: [id number] Dexamethasone (Dexamethasone Sod Inj 4 Mg/Ml Vial) Confirm Administered Dose 4 mg .ROUTE .STK-MED ONE Stop: 11/28/21 13:01 Last Admin: 11/28/21 13:25 Dose: 4 mg Documented by: [id number] Sodium Chloride (Nss 1000ml) 1,000 mls @ 999 mls/hr IV .Q1H1M ONE Stop: 11/28/21 10:16 Last Infusion: 11/28/21 10:31 Dose: 0 mls/hr Documented by: [id number] Admin: 11/28/21 09:27 Dose: 999 mls/hr Documented by: [id number] Dexamethasone 4 mg/ Syringe 1 mls @ 1 mls/min IV ONE ONE Stop: 11/28/21 13:16 Last Admin: 11/28/21 16:12 Dose: Not Given Documented by: [id number] Azithromycin 500 mg/ Dextrose 255 mls @ 127.5 mls/hr IV DAILY@1000 RADHA; Hernán col Stop: 12/05/21 13:59 Last Infusion: 11/28/21 14:23 Dose: 127.5 mls/hr Documented by: [id number] Admin: 11/28/21 13:43 Dose: 127.5 mls/hr Documented by: [id number] Ioversol (Optiray 320 125ml) 113 ml IV ONCE ONE Stop: 11/28/21 10:29 Last Admin: 11/28/21 10:28 Dose: 113 ml Documented by: [id number] Ondansetron HCl (Ondansetron Inj 2 Mg/Ml 2 Ml Vial) 4 mg IV NOW STA Stop: 11/28/21 09:34 Last Admin: 11/28/21 09:34 Dose: 4 mg Documented by: [id number] Ondansetron HCl (Ondansetron Inj 2 Mg/Ml 2 Ml Vial) Confirm Administered Dose 4 mg .ROUTE .STK-MED ONE Stop: 11/28/21 09:35 Last Admin: 11/28/21 09:36 Dose: Not Given Documented by: [id number] Medical Decision Making Differential Diagnosis Viral syndrome, strep pharyngitis, tonsillitis, mononucleosis, retropharyngeal abscess, peritonsillar abscess, otitis media, sinusitis, bronchitis, pneumonia, as well as other pathologies. Medical Records Attestation: I reviewed the patient's medical records. Home Medications Current Medication List: was personally reviewed by me Laboratory Data Attestation: I reviewed the patient's lab results. Result diagrams: 11/28/21 09:18 11/28/21 09:18 Lab Results 11/28/21 11/28/21 11/28/21 Range/Units 09:18 09:18 09:18 WBC 5.58 (4.8-10.8) K/uL RBC 4.94 (4.2-5.4) M/uL Hgb 13.7 (12.0-16.0) g/dL Hct 40.4 (37-47) % MCV 81.8 (80-100) fL MCH 27.7 (25-34) pg MCHC 33.9 (32-36) g/dL RDW Std Deviation 39.4 (36.4-46.3) fL RDW Coeff of Leslie 13.0 (11.5-14.5) % Plt Count 258 (130-400) K/uL MPV 10.0 (7.4-10.4) fL Immature Gran % (Auto) 0.2 % Neut % (Auto) 79.2 % Lymph % (Auto) 17.6 % [place] % (Auto) 2.5 % Eos % (Auto) 0.0 % Baso % (Auto) 0.5 % Neut # (Auto) 4.42 (1.4-6.5) K/uL Lymph # (Auto) 0.98 L (1.2-3.4) K/uL [place] # (Auto) 0.14 (0.11-0.59) K/uL Eos # (Auto) 0.00 (0-0.5) K/uL Baso # (Auto) 0.03 (0-0.2) K/uL Immature Gran # (Auto) 0.01 (0.00-0.02) K/uL Sodium 130 L (136-145) mmol/L Potassium 3.2 L (3.5-5.1) mmol/L Chloride 96 L (98-107) mmol/L Carbon Dioxide 24 (21-32) mmol/L Anion Gap 10.0 (3-11) BUN 8 (7-18) mg/dl Creatinine 0.62 (0.6-1.2) mg/dl Est Cr Clr Drug Dosing 119.4 ml/min Est GFR ( Amer) 128.0 ml/min Est GFR (Non-Af Amer) 110.4 ml/min BUN/Creatinine Ratio 13.5 (10-20) Glucose 169 H (70-99) mg/dl Calcium 8.6 (8.5-10.1) mg/dl Magnesium 1.9 (1.8-2.4) mg/dl Total Bilirubin 0.5 (0.2-1) mg/dl AST 102 H (15-37) U/L ALT 76 (12-78) Alkaline Phosphatase 92 (45-117) U/L Troponin I < 0.015 (0-0.045) ng/ml C-Reactive Protein 13.50 H (0-0.29) mg/dl NT-Pro-B Natriuret Pep 27 (0-450) pg/ml Total Protein 7.8 (6.4-8.2) gm/dl Albumin 2.8 L (3.4-5.0) gm/dl Globulin 5.0 H (2.5-4.0) gm/dl Albumin/Globulin Ratio 0.6 L (0.9-2) Procalcitonin (0-0.5) ng/ml HCG, Qual Negative (Negative) SARS-CoV-2 (PCR) (Negative) Influenza Type A (PCR) (Neg) Influenza Type B (PCR) (Neg) RSV (RT-PCR) (Neg) 11/28/21 11/28/21 Range/Units 09:29 09:36 WBC (4.8-10.8) K/uL RBC (4.2-5.4) M/uL Hgb (12.0-16.0) g/dL Hct (37-47) % MCV (80-100) fL MCH (25-34) pg MCHC (32-36) g/dL RDW Std Deviation (36.4-46.3) fL RDW Coeff of Leslie (11.5-14.5) % Plt Count (130-400) K/uL MPV (7.4-10.4) fL Immature Gran % (Auto) % Neut % (Auto) % Lymph % (Auto) % [place] % (Auto) % Eos % (Auto) % Baso % (Auto) % Neut # (Auto) (1.4-6.5) K/uL Lymph # (Auto) (1.2-3.4) K/uL [place] # (Auto) (0.11-0.59) K/uL Eos # (Auto) (0-0.5) K/uL Baso # (Auto) (0-0.2) K/uL Immature Gran # (Auto) (0.00-0.02) K/uL Sodium (136-145) mmol/L Potassium (3.5-5.1) mmol/L Chloride (98-107) mmol/L Carbon Dioxide (21-32) mmol/L Anion Gap (3-11) BUN (7-18) mg/dl Creatinine (0.6-1.2) mg/dl Est Cr Clr Drug Dosing ml/min Est GFR ( Amer) ml/min Est GFR (Non-Af Amer) ml/min BUN/Creatinine Ratio (10-20) Glucose (70-99) mg/dl Calcium (8.5-10.1) mg/dl Magnesium (1.8-2.4) mg/dl Total Bilirubin (0.2-1) mg/dl AST (15-37) U/L ALT (12-78) Alkaline Phosphatase (45-117) U/L Troponin I (0-0.045) ng/ml C-Reactive Protein (0-0.29) mg/dl NT-Pro-B Natriuret Pep (0-450) pg/ml Total Protein (6.4-8.2) gm/dl Albumin (3.4-5.0) gm/dl Globulin (2.5-4.0) gm/dl Albumin/Globulin Ratio (0.9-2) Procalcitonin 25.52 H (0-0.5) ng/ml HCG, Qual (Negative) SARS-CoV-2 (PCR) POSITIVE A* (Negative) Influenza Type A (PCR) Negative (Neg) Influenza Type B (PCR) Negative (Neg) RSV (RT-PCR) Negative (Neg) Imaging Data Radiologist's Impression: Chest X-Ray 11/28/21 09:16 SINGLE VIEW CHEST CLINICAL HISTORY: Cough and dyspnea. Covid. FINDINGS: An AP, portable, upright chest radiograph is compared to study dated 04/23/2017. The cardiomediastinal silhouette is unremarkable. Multifocal airspace consolidation is seen throughout both lungs. No large pleural effusion or pneumothorax is identified. The bony thorax is grossly intact. Cholecystectomy clips are noted in the right upper quadrant. IMPRESSION: Multifocal airspace consolidation is consistent with the reported history of a viral pneumonia. Radiographic follow-up to resolution is recommended. ACT 112: Negative or not required by law. Electronically signed by: Ernst Awad M.D. 11/28/2021 10:16 AM Chest CTA 11/28/21 10:04 CHEST CTA for PULMONARY ARTERIES CT DOSE: 427.13 mGy.cm HISTORY: Shortness of breath. Dizziness. Weakness. TECHNIQUE: Multiaxial CT images of the chest were performed following the intravenous administration of contrast to evaluate the pulmonary arteries. Maximal intensity projection images were also obtained. A dose lowering technique was utilized adhering to the principles of ALARA. COMPARISON STUDY: Chest CTA 09/24/2010. FINDINGS: Normal caliber thoracic aorta with no evidence for dissection. No pleural or pericardial effusions. The heart is normal in size. No filling defects within the pulmonary arteries to suggest a pulmonary embolus. Normal esophagus. Hepatic steatosis. The visualized spleen is unremarkable. There is mild mediastinal and bilateral hilar lymphadenopathy. This is likely reactive. No fractures within the visualized osseous structures. No pneumothorax. The central airways are patent. Multifocal bilateral groundglass airspace opacities are seen throughout the majority the lungs. This is consistent with a moderate to severe viral pneumonia. IMPRESSION: 1. No evidence for pulmonary embolus. 2. Multifocal bilateral groundglass airspace opacities seen throughout the majority the lungs consistent with a moderate to severe bilateral pneumonia. 3. Mildly mediastinal and bilateral hilar lymphadenopathy. This is likely re active. ACT 112: Negative or not required by law. Electronically signed by: Armani Barrientos M.D. 11/28/2021 10:37 AM ECG Data Attestation: I personally reviewed and interpreted this ECG as follows: Indication: + SOB/dyspnea Rate (beats per minute): 115 Rhythm: + sinus tachycardia ECG Intervals/blocks: + Normal QRS and + Prolonged QT ECG [place]: + Normal ECG ST segments: + Nonspecific ST abnormalities MDM Narrative This is a 41-year-old female who presents emergency room with concern for worsening symptoms and known coronavirus. Patient is a former smoker, states worsening cough however denies shortness of breath. Patient found to be markedly hypoxic on room air at 80% in triage. Patient placed on 4 L with imp rovement of saturations although this was turned up by myself at bedside in addition. Patient with concern for dehydration as she states she is experienced both vomiting and diarrhea. States cough typically nonproductive. Patient otherwise tachycardic but hemodynamically stable. Labs drawn and sent and chest x-ray performed. Chest x-ray with obvious findings consistent with active Covid infection. Patient was given Tessalon Perles and DuoNeb treatment here did report some mild improvement. Patient with persistent tachycardia despite IV fluid rehydration, given concern for extent of hypoxia and tachycardia discussed with her CT imaging to rule out PE. CT performed, no PE was noted, however extensive changes consistent with Covid. Patient given dexamethasone IV, and case discussed with hospitalist service. Patient otherwise remained hemodynamically stable though did require 4 to 5 L/min via nasal cannula in order to maintain saturations. An order was placed for continuous cardiac monitoring. The monitor shows a rate of _105_ with _sinus tachycardia_ rhythm. Impression & Plan Dyspnea, Hypokalemia, Dehydration, Hypoxia, COVID-19 Discharge Plan Visit Data Chief Complaint: Dehydration Stated Complaint: COVID+ 2 WEEKS, COUGH, DEHYDRATED ED Provider: Mary Grace Muhammad Discharge Problem: Dyspnea, Hypokalemia, Dehydration, Hypoxia, COVID-19 Patient Disposition: Being Evaluated by Hospitalist Condition: Fair Discharge Instructions Interventions: ED Discharge Assessment Last Done: 11/28/21 13:23
[2021-11-28 09:57] LABS: Alanine Aminotransferase 76 (12-78); Albumin Level 2.8 gm/dl (3.4-5.0); Aspartate Aminotransferase 102 U/L (15-37); BUN Creatinine Ratio 13.5 (10-20); Blood Urea Nitrogen 8 mg/dl (7-18); Calcium 8.6 mg/dl (8.5-10.1); Carbon Dioxide 24 mmol/L (21-32); Chloride 96 mmol/L (98-107); Creatinine Clr Calc Pharmacy 119.4 ml/min; Est GFR (Non-African American) 110.4 ml/min; Glucose 169 mg/dl (70-99); Magnesium 1.9 mg/dl (1.8-2.4); Potassium 3.2 mmol/L (3.5-5.1); Sodium 130 mmol/L (136-145)
[2021-11-28 10:02] LABS: Pregnancy Test, Serum Negative (Negative)
[2021-11-28 10:03] LABS: Basophils # (auto) 0.03 K/uL (0-0.2); Basophils % (auto) 0.5 %; Immature Granulocytes # (auto) 0.01 K/uL (0.00-0.02); Immature Granulocytes % (auto) 0.2 %; Lymphocytes # (auto) 0.98 K/uL (1.2-3.4); Lymphocytes % (auto) 17.6 %; Monocytes # (auto) 0.14 K/uL (0.11-0.59); Monocytes % (auto) 2.5 %; Neutrophils # (auto) 4.42 K/uL (1.4-6.5); Neutrophils % (auto) 79.2 %
[2021-11-28 10:07] LABS: Albumin Globulin Ratio 0.6 (0.9-2); Alkaline Phosphatase 92 U/L (45-117); Bilirubin,Total 0.5 mg/dl (0.2-1); NT Pro B Type Natriuretic Pept 27 pg/ml (0-450); Total Protein 7.8 gm/dl (6.4-8.2)
--- NOTE | 2021-11-28 10:18 | XRay Report ---
SINGLE VIEW CHEST CLINICAL HISTORY: Cough and dyspnea. Covid. FINDINGS: An AP, portable, upright chest radiograph is compared to study dated 04/23/2017. The cardiome diastinal silhouette is unremarkable. Multifocal airspace consolidation is seen throughout both lungs . No large pleural effusion or pneumothorax is identified. The bony thorax is grossly intact. Cholecy stectomy clips are noted in the right upper quadrant. IMPRESSION: Multifocal airspace consolidation is consistent with the reported history of a viral pneu monia. Radiographic follow-up to resolution is recommended. ACT 112: Negative or not required by law. Electronically signed by: Ernst Awad M.D. 11/28/2021 10:16 AM
[2021-11-28] MEDS ORDERED: OPTIRAY 320 125ml IV ONE (10:28)
[2021-11-28 10:34] LABS: Influenza A virus by PCR Negative (Neg); Influenza B virus by PCR Negative (Neg); RSV by PCR Negative (Neg)
--- NOTE | 2021-11-28 10:38 | CT Scan Report ---
CHEST CTA for PULMONARY ARTERIES CT DOSE: 427.13 mGy.cm HISTORY: Shortness of breath. Dizziness. Weakness. TECHNIQUE: Multiaxial CT images of the chest were performed following the intravenous administration of contrast to evaluate the pulmonary arteries. Maximal intensity projection images were also obtaine d. A dose lowering technique was utilized adhering to the principles of ALARA. COMPARISON STUDY: Chest CTA 09/24/2010. FINDINGS: Normal caliber thoracic aorta with no evidence for dissection. No pleural or pericardial ef fusions. The heart is normal in size. No filling defects within the pulmonary arteries to suggest a p ulmonary embolus. Normal esophagus. Hepatic steatosis. The visualized spleen is unremarkable. There i s mild mediastinal and bilateral hilar lymphadenopathy. This is likely reactive. No fractures within the visualized osseous structures. No pneumothorax. The central airways are patent. Multifocal bilate ral groundglass airspace opacities are seen throughout the majority the lungs. This is consistent wit h a moderate to severe viral pneumonia. IMPRESSION: 1. No evidence for pulmonary embolus. 2. Multifocal bilateral groundglass airspace opacities seen throughout the majority the lungs consist ent with a moderate to severe bilateral pneumonia. 3. Mildly mediastinal and bilateral hilar lymphadenopathy. This is likely reactive. ACT 112: Negative or not required by law. Electronically signed by: Armani Barrientos M.D. 11/28/2021 10:37 AM
[2021-11-28 10:49] LABS: SARS CoV2 RNA(COVID-19) InHosp POSITIVE (Negative)
[2021-11-28 11:25] LABS: Troponin I < 0.015 ng/ml (0-0.045)
[2021-11-28] MEDS ORDERED: MAGNESIUM HYDROXIDE SUSP 30 ML UDC PO PRN (12:11)
[2021-11-28] MEDS ORDERED: POLYETHYLENE (MIRALAX) 17 GM PACK PO PRN (12:11)
[2021-11-28] MEDS ORDERED: ACETAMINOPHEN 325 MG TAB PO PRN (12:11)
[2021-11-28] MEDS ORDERED: MoRPHine SULFATE 2 MG/ML CARP IV PRN (12:11)
[2021-11-28] MEDS ORDERED: ONDANSETRON INJ 2 MG/ML 2 ML VIAL IV PRN (12:11)
[2021-11-28] MEDS ORDERED: ZOLPIDEM TARTRATE 5 MG TAB PO PRN (12:11)
[2021-11-28] MEDS ORDERED: ALUMINUM/MAGNESIUM SUSP 30 ML UDC PO PRN (12:11)
[2021-11-28] MEDS ORDERED: EPINEPHrine ADULT AUTO-INJECT 0.3 MG SYR IM PRN (12:11)
[2021-11-28] MEDS ORDERED: ALBUTEROL 0.083% NEBU SOLN 3 ML VIAL ONE (12:15)
--- NOTE | 2021-11-28 12:52 | History & Physical Report ---
Date of Service November 28, 2021 Assessment & Plan (1) Pneumonia due to severe acute respiratory syndrome coronavirus 2 (SARS -CoV-2): Plan: Mrs. Bruner is a 41 year old immunocompromised female (on monthly Fremanezumab and monthly Omalizumab) with a history of Migraine Headaches, Anaphylaxis with NSAID's, Urticaria, and Nephrolithiasis who was diagnosed with COVID on 11/19/21 and presents today with SARS CoV-2 Pneumonitis with Hypoxemia, Hypokalemia, and Hyponatremia. She initially became ill with fever, chills, cough, generalized achiness on 11/18/21, tested positive for COVID 19 on 11/19/21 and was treated with supportive measures at home (Tylenol, Mucinex). Everyone in her household were also diagnosed with COVID around the same time, however they all seem to have improved over the ensuing 2 weeks. Unfortunately the patient states that she recently became more symptomatic over the last 3 days. She has a very persistent cough, often coughing to the point of gagging and vomiting. She continues to experience fevers and chills -- with her last fever being last evening. Unfortunately, the patient has developed increasing shortness of breath over the last couple of days along with ongoing fatigue, body aches, loose stools. She has approximately 2 loose stools per day. Patient denies any headache or stiff neck. She denies any chest pain, hemoptysis, or pleuritic chest discomfort. No significant sputum production. She has not noticed any whe ezing either. Patient's CXR and CTA Chest are consistent with a viral pneumonia, CRP is 13.50 mg/dL, and procalcitonin is 25.52 ng/mL. Blood cultures ordered. CBC with diff shows a normal WBC count but lymphocyte count is below normal. Normal H&H. Serum potassium level is low at 3.2 mmol/L, and serum sodium low at 130 mmol/L. Influenza A and B are negative. Patient is currently on 4 L of oxygen per minute via nasal cannula and her O2 saturations are hovering between 87% and 88%. Following increased to 5 L, her O2 saturations are unchanged. She will receive a nebulizer treatment. -- Admit to COVID unit with cardiac monitoring and continuous pulse oximetry. -- IV Dexamethasone 6 mg daily. -- Duoneb Nebulizer treatments. -- Incentive spirometry with flutter valve. -- Chest percussion therapy. -- Tylenol as needed. -- Antiemetics as needed. -- Hold monthly Fremanezumab and monthly Omalizumab. -- Continue supplemental O2 with a goal SpO2 = or > 92%. -- Due to severely elevated procalcitonin level and elevated CRP, Blood Cultures were drawn. -- Remdesivir is not indicated as she was diagnosed about 2 weeks ago. -- Begin empiric antibiotics with Rocephin and Azithromycin. (2) Hypoxemia: Plan: Secondary to pneumonia. -- Manage as outlined above. (3) Vomiting: Plan: She coughs to the point of gagging and then has some vomiting. -- May use Tessalon Perles as needed for cough. (4) Hypokalemia: Plan: -- IVF NSS with 20mEq KCL x 1 L. -- Monitor daily labs. Admission and Anticipated Discharge Date Admission Date: November 28, 2021 History of Present Illness Chief Complaint: -- SARS CoV2 Pneumonitis. -- Hypoxia. -- Vomiting. -- Hypokalemia. Primary Care Provider: Anette Vences MD Mrs. Bruner is a 41 year old immunocompromised female (on monthly Fremanezumab and monthly Omalizumab) with a history of Migraine Headaches, Anaphylaxis with NSAID's, Urticaria, and Nephrolithiasis who became ill with fever, chills, cough, achiness on , tested positive for COVID 19 11/19/21 and was treated with supportive measures at home (Tylenol, Mucinex). Everyone in her household Prior diagnosed with, but around the same time, however they all seem to have improved over the ensuing 2 weeks. Unfortunately the patient states that she recently became more symptomatic over the last 3 days. She has a very persistent cough, often coughing to the point of gagging and vomiting. She continues to experience fevers and chills -- with her last fever being last evening. Unfortunately, the patient has developed increasing shortness of breath over the last couple of days along with ongoing fatigue, body aches, loose stools. She has approximately 2 loose stools per day. Patient denies any headache or stiff neck. She denies any chest pain, hemoptysis, or pleuritic chest discomfort. She has not noticed any wheezing either. Patient is currently on 4 L of oxygen per minute via nasal cannula and her O2 saturations are hovering between 87% and 88%. Following increased to 5 L, her O2 saturations are unchanged. She will receive a nebulizer treatment. Allergies Allergy/AdvReac Type Severity Reaction Status Date / Time ibuprofen Allergy Severe ANAPHYLATIC Verified 11/28/21 11:20 SHOCK naproxen Allergy Severe ANAPHYLATIC Verified 11/28/21 11:20 SHOCK NSAIDS (Non-Steroidal Allergy Severe anaphylatic Verified 11/28/21 11:20 Anti-Inflamma shock azithromycin [From Zithromax] Allergy Intermediate Redness of Verified 11/28/21 14:25 Skin Home Medications Medication Instructions Recorded Confirmed Type fremanezumab-vfrm 225 mg/1.5 mL 225 mg SQ MONTHLY #1.5 ml 07/03/20 11/28/21 Rx subcutaneous auto-injector (Ajovy) omalizumab 150 mg subcutaneous 0 mg SUBCUT MONTHLY 07/16/20 11/28/21 History solution (Xolair) cholecalciferol (vitamin D3) 25 25 mcg PO DAILY 07/17/20 11/28/21 History mcg (1,000 unit) capsule epinephrine 0.3 mg/0.3 mL 0.3 mg IM Q10M PRN 07/17/20 11/28/21 History injection, auto-injector estradiol 0.5 mg tablet 0.5 mg PO DAILY 07/17/20 11/28/21 History mecobalamin (vitamin B12) 1,000 1,000 mcg PO DAILY 07/17/20 11/28/21 History mcg chewable tablet Past Med/Surg History Medical History (Updated 11/28/21 @ 16:53 by Mary Grace Muhammad DO) Migraine with aura and without status migrainosus, not intractable Urticaria Vitamin D deficiency Surgical History H/O lithotripsy S/P cholecystectomy S/P hysterectomy Social History Smoking Status: Never smoker Tobacco Type: Cigarettes Hx Alcohol Use: No Hx Substance Use: No Communication Ability: Effective Bit Sander Required: No Beliefs That Will Affect Care: None Current Living Situation: Spouse Other Information That Helps Us Care for You: No Feels Safe at Home: Yes Safety Concerns: Feels Safe At This Time Assistive Devices: None Review of Systems Review of Systems: 10 point ROS was performed and negative with the exception of what is mentioned in the HPI. Physical Exam Physical Exam: GENERAL: Patient appears ill, tachycardic and tachypneic, SpO2 87% to 88% on O2 at 5 L/min via NC. HEENT: Head is atraumatic, normocephalic. Mucous membranes are tacky appearing. EOM's intact. Facies symmetric. No perioral cyanosis. Sclerae anicteric. NECK: No JVD. JVP is at the level of the clavicle sitting upright. Carotid upstrokes are + 2 bilaterally. No bruits are noted. CHEST/LUNGS: Diminished breath sounds throughout, diffuse crackles are present bilaterally. CVS: S1 and S2 are regular, tachycardic at 110 bpm without obvious murmurs, gallops, or rubs. PMI is nondisplaced. No lifts, heaves, or thrills. No abdominal aortic or renal bruits. ABDOMINAL EXAM: Bowel sounds are present. No masses, organomegaly, or tenderness. EXTREMITIES: No clubbing or cyanosis. No edema. Intact posterior tibial and radial pulses bilaterally. NEUROLOGIC EXAM: Patient is awake, alert, and oriented. Pleasant and cooperative. Answers questions appropriately. Speech is clear but when she speaks she coughs. Normal movement in all 4 extremities. Gait pattern was not assessed. Master Pilot: Sinus tachycardia at rates of 105 to 130 bpm. EKG 11/28/21: -- Sinus tachycardia at 115 bpm with nonspecific T-wave abnormality. -- When compared to 04/23/2017 tracing; no significant change. Results & Data Results & Data ([facility]) Vital Signs (Past 12 Hours) Vital Signs Temp Pulse Pulse Resp BP BP Pulse Ox 11/28/21 11:30 103 H 26 H 105/65 88 L 11/28/21 11:00 24 103/64 90 11/28/21 10:00 125 H 22 148/67 H 91 11/28/21 09:30 113 H 22 125/69 91 11/28/21 09:29 124 H 19 11/28/21 09:12 114 H 20 122/77 91 11/28/21 09:08 82 L 11/28/21 08:54 37 C 130 H 18 123/71 80 L Laboratory Results Laboratory Results - last 24 hr 11/28/21 11/28/21 11/28/21 09:18 09:18 09:18 WBC 5.58 RBC 4.94 Hgb 13.7 Hct 40.4 MCV 81.8 MCH 27.7 MCHC 33.9 RDW Std Deviation 39.4 RDW Coeff of Leslie 13.0 Plt Count 258 MPV 10.0 Immature Gran % (Auto) 0.2 Neut % (Auto) 79.2 Lymph % (Auto) 17.6 [place] % (Auto) 2.5 Eos % (Auto) 0.0 Baso % (Auto) 0.5 Neut # (Auto) 4.42 Lymph # (Auto) 0.98 L [place] # (Auto) 0.14 Eos # (Auto) 0.00 Baso # (Auto) 0.03 Immature Gran # (Auto) 0.01 Sodium 130 L Potassium 3.2 L Chloride 96 L Carbon Dioxide 24 Anion Gap 10.0 BUN 8 Creatinine 0.62 Est Cr Clr Drug Dosing 119.4 Est GFR ( Amer) 128.0 Est GFR (Non-Af Amer) 110.4 BUN/Creatinine Ratio 13.5 Glucose 169 H Calcium 8.6 Magnesium 1.9 Total Bilirubin 0.5 AST 102 H ALT 76 Alkaline Phosphatase 92 Troponin I < 0.015 C-Reactive Protein 13.50 H NT-Pro-B Natriuret Pep 27 Total Protein 7.8 Albumin 2.8 L Globulin 5.0 H Albumin/Globulin Ratio 0.6 L Procalcitonin HCG, Qual Negative SARS-CoV-2 (PCR) Influenza Type A (PCR) Influenza Type B (PCR) RSV (RT-PCR) 11/28/21 11/28/21 09:29 09:36 WBC RBC Hgb Hct MCV MCH MCHC RDW Std Deviation RDW Coeff of Leslie Plt Count MPV Immature Gran % (Auto) Neut % (Auto) Lymph % (Auto) [place] % (Auto) Eos % (Auto) Baso % (Auto) Neut # (Auto) Lymph # (Auto) [place] # (Auto) Eos # (Auto) Baso # (Auto) Immature Gran # (Auto) Sodium Potassium Chloride Carbon Dioxide Anion Gap BUN Creatinine Est Cr Clr Drug Dosing Est GFR ( Amer) Est GFR (Non-Af Amer) BUN/Creatinine Ratio Glucose Calcium Magnesium Total Bilirubin AST ALT Alkaline Phosphatase Troponin I C-Reactive Protein NT-Pro-B Natriuret Pep Total Protein Albumin Globulin Albumin/Globulin Ratio Procalcitonin 25.52 H HCG, Qual SARS-CoV-2 (PCR) POSITIVE A* Influenza Type A (PCR) Negative Influenza Type B (PCR) Negative RSV (RT-PCR) Negative Diagnostic Findings CTA CHEST 11/28/21: Normal caliber thoracic aorta with no evidence for dissection. No pleural or pericardial effusions. The heart is normal in size. No filling defects within the pulmonary arteries to suggest a pulmonary embolus. Normal esophagus. Hepatic steatosis. The visualized spleen is unremarkable. There is mild mediastinal and bilateral hilar lymphadenopathy. This is likely reactive. No fractures within the visualized osseous structures. No pneumothorax. The central airways are patent. Multifocal bilateral groundglass airspace opacities are seen throughout the majority the lungs. This is consistent with a moderate to severe viral pneumonia. IMPRESSION: 1. No evidence for pulmonary embolus. 2. Multifocal bilateral ground-glass airspace opacities seen throughout the majority the lungs consistent with a moderate to severe bilateral pneumonia. 3. Mildly mediastinal and bilateral hilar lymphadenopathy. This is likely reactive. CXR 11/28/21: An AP, portable, upright chest radiograph is compared to study dated 04/23/2017. The cardiomediastinal silhouette is unremarkable. Multifocal airspace consolidation is seen throughout both lungs. No large pleural effusion or pneumothorax is identified. The bony thorax is grossly intact. Cholecystectomy clips are noted in the right upper quadrant. IMPRESSION: -- Multifocal airspace consolidation is consistent with the reported history of a viral pneumonia. -- Radiographic follow-up to resolution is recommended. Medications Administered Medications fremanezumab-vfrm 225 mg/1.5 mL subcutaneous auto-injector (Ajovy) 225 mg SQ MONTHLY #1.5 ml 07/03/20 [Rx Confirmed 11/28/21] omalizumab 150 mg subcutaneous solution (Xolair) 0 mg SUBCUT MONTHLY 07/16/20 [History Confirmed 11/28/21] cholecalciferol (vitamin D3) 25 mcg (1,000 unit) capsule 25 mcg PO DAILY 07/17/20 [History Confirmed 11/28/21] epinephrine 0.3 mg/0.3 mL injection, auto-injector 0.3 mg IM Q10M PRN 07/17/20 [History Confirmed 11/28/21] estradiol 0.5 mg tablet 0.5 mg PO DAILY 07/17/20 [History Confirmed 11/28/21] mecobalamin (vitamin B12) 1,000 mcg chewable tablet 1,000 mcg PO DAILY 07/17/20 [History Confirmed 11/28/21] Home Medications Acetaminophen (Acetaminophen 325 Mg Tab) 650 mg PO Q4H PRN PRN Reason: Pain or Fever Stop: 12/28/21 12:10 Al Hydrox/Mg Hydrox/Simethicone (Aluminum/Magnesium Susp 30 Ml Udc) 15 ml PO Q4H PRN PRN Reason: Dyspepsia Stop: 12/28/21 12:10 Albuterol (Ipratropium Reard[place]/Albuterol Respimat Inh) 1 puffs INH QID RADHA Stop: 12/28/21 12:59 Albuterol (Albuterol Hfa 8 Gm Inhaler) 1 puffs INH QIDR RADHA Stop: 12/28/21 14:59 Enoxaparin Sodium (Enoxaparin Inj 40 Mg/0.4 Ml Syr) 40 mg SQ Q24H RADHA Stop: 12/28/21 12:10 Epinephrine HCl (Epinephrine Adult Auto-Inject 0.3 Mg Syr) 0.3 mg IM Q10M PRN PRN Reason: Allergic Reaction Stop: 12/28/21 12:10 Guaifenesin (Guaifenesin 600 Mg Tabcr) 1,200 mg PO Q12 RADHA Stop: 12/28/21 20:59 Potassium Chloride/Sodium Chloride (Normal Saline W/20 Meq Kcl) 20 meq in 1,000 mls @ 100 mls/hr IV .Q10H RADHA Stop: 11/28/21 22:10 Dexamethasone 6 mg/ Syringe 1.5 mls @ 1 mls/min IV Q24H RADHA Stop: 12/28/21 12:10 Ipratropium Reardan (Ipratropium Reardan Hfa Inhaler) 1 puffs INH QIDR RADHA Stop: 12/28/21 14:59 Magnesium Hydroxide (Magnesium Hydroxide Susp 30 Ml Udc) 30 ml PO Q12H PRN PRN Reason: Constipation Stop: 12/28/21 12:10 Morphine Sulfate (Morphine Sulfate 2 Mg/Ml Carp) 2 mg IV Q30M PRN PRN Reason: Chest Pain Stop: 12/12/21 12:10 Non-Formulary Medication (Estradiol) 0.5 mg PO DAILY RADHA Stop: 12/29/21 08:59 Non-Formulary Medication (Mecobalamin (Vitamin B12)) 1,000 mcg PO DAILY RADHA Stop: 12/29/21 08:59 Non-Formulary Medication (Rimegepant [Nurtec Odt]) 75 mg PO Q2D RADHA Stop: 12/28/21 12:10 Ondansetron HCl (Ondansetron Inj 2 Mg/Ml 2 Ml Vial) 4 mg IV Q6H PRN PRN Reason: Nausea Stop: 12/28/21 12:10 Polyethylene Glycol (Polyethylene (Miralax) 17 Gm Pack) 17 gm PO DAILY PRN PRN Reason: Constipation Stop: 12/28/21 12:10 Vitamin D (Cholecalciferol 1,000 Units 25 Mcg Tab) units PO DAILY RADHA Stop: 12/29/21 08:59 Zolpidem Tartrate (Zolpidem Tartrate 5 Mg Tab) 5 mg PO HS PRN PRN Reason: Sleep Stop: 12/28/21 12:10 Code Status & VTE Plan Code Status Full Code VTE Prophylaxis Plan VTE Prophylaxis will be ordered: Yes Supervising Physician Co-Signing Physician Notes Reviewed PA documentation discussed with him earlier today. I did not see the patient to minimize Covid exposure. Patient is a 41-year-old female who is immunocompromise, on therapy for migraines that presents with shortness of breath. Patient was diagnosed with Covid approximately 14 days ago along with several members of her family. She is unvaccinated. While there infections resolved, her symptoms slowly became worse. She presented to the emergency room hypoxic. Patient is currently on 6 L nasal cannula with an O2 sat 85% as per last documentation. Unfortunately, patient is out of the window for most Covid treatments but will be started on dexamethasone 6 mg IV daily, empiric antibiotics. Continue O2 support. PG Care Time/CCT Total # of Minutes Spent Total Time Spent with Patient: Total time spent is greater than 50% in coordination of care (as documented) at patient's floor/unit and/or counseling patient:34 Coding Level of Care Code 26402 Initial Inpt Care Lvl 3 Diagnoses Pneumonia due to severe acute respiratory syndrome coronavirus 2 (SARS-CoV-2) U07.1; J12.82 Hypoxemia R09.02 Vomiting R11.10 Hypokalemia E87.6 Time Spent (min) 58
[2021-11-28] MEDS ORDERED: DEXAMETHASONE SOD INJ 4 MG/ML VIAL ONE (13:00)
[2021-11-28] MEDS ORDERED: IPRATROPIUM BROMIDE/ALBUTEROL respimat INH INH SCH (13:00)
[2021-11-28] MEDS ORDERED: NSS + 20MEQ KCL 20 MEQ/1,000 ML BAG IV SCH (13:15)
[2021-11-28] MEDS ORDERED: dexAMETHasone 4 MG in SYRINGE 0 ML IV ONE (13:15)
[2021-11-28] MEDS ORDERED: EPINEPHrine INJ 1 MG/ML AMP IM PRN (13:30)
[2021-11-28] MEDS: cefTRIAXone SODIUM 2,000 MG in DEXTROSE 5% 50 ML IV SCH (13:43)
[2021-11-28] MEDS ORDERED: AZITHROMYCIN 500 MG in DEXTROSE 5% 250 ML IV SCH (14:00)
[2021-11-28] MEDS: IPRATROPIUM BROMIDE HFA INHALER INH SCH ×2 (15:52→20:00)
[2021-11-28] MEDS: ALBUTEROL HFA 8 GM INHALER INH SCH ×2 (15:52→19:59)
[2021-11-28] MEDS: ENOXAPARIN INJ 40 MG/0.4 ML SYR SQ SCH (16:13)
[2021-11-28] MEDS: guaiFENesin 600 MG TABCR PO SCH (19:52)
[2021-11-29] MEDS: BENZONATATE 100 MG CAPSULE PO PRN ×3 (03:26→20:10)
--- NOTE | 2021-11-29 06:27 | Electrocardiogram Report ---
Test Reason : Blood Pressure : / mmHG Vent. Rate : 115 BPM Atrial Rate : 115 BPM P-R Int : 136 ms QRS Dur : 088 ms QT Int : 358 ms P-R-T Axes : 017 -05 010 degrees QTc Int : 495 ms Poor data quality, interpretation may be adversely affected Sinus tachycardia Nonspecific T wave abnormality Prolonged QT Abnormal ECG When compared with ECG of 23-APR-2017 17:32, No significant change was found Confirmed by John Guerra [id number]) on 11/29/2021 6:26:38 AM Referred By: REFERRED SELF Confirmed By:John Guerra
[2021-11-29] MEDS: ALBUTEROL HFA 8 GM INHALER INH SCH ×4 (07:15→19:40)
[2021-11-29] MEDS: IPRATROPIUM BROMIDE HFA INHALER INH SCH ×4 (07:15→19:40)
[2021-11-29] MEDS: cefTRIAXone SODIUM 2,000 MG in DEXTROSE 5% 50 ML IV SCH (08:19)
[2021-11-29] MEDS: guaiFENesin 600 MG TABCR PO SCH ×2 (08:20→20:09)
[2021-11-29] MEDS: CHOLECALCIFEROL 1,000 UNITS 25 MCG TAB PO SCH (08:20)
[2021-11-29] MEDS: CYANOCOBALAMIN 500 MCG TABLET (VITAMIN B-12) PO SCH (08:20)
[2021-11-29] MEDS: estradioL 1 MG TAB PO SCH (08:20)
[2021-11-29] MEDS: ENOXAPARIN INJ 40 MG/0.4 ML SYR SQ SCH (08:20)
[2021-11-29] MEDS ORDERED: dexAMETHasone 6 MG in SYRINGE 0 ML IV SCH (09:00)
[2021-11-29] MEDS ORDERED: dexAMETHasone 14 MG in DEXTROSE 5% 25 ML IV ONE (09:45)
[2021-11-29] MEDS: DOXYCYCLINE HYCLATE 100 MG in DEXTROSE 5% 100 ML IV SCH ×2 (10:08→20:09)
--- NOTE | 2021-11-29 10:11 | Hospitalist Progress Note ---
Date of Service November 29, 2021 Assessment & Plan (1) Pneumonia due to severe acute respiratory syndrome coronavirus 2 (SARS -CoV-2): Plan: Mrs. Bruner is a 41 year old immunocompromised female (on monthly Fremanezumab and monthly Omalizumab) with a history of Migraine Headaches, Anaphylaxis with NSAID's, Urticaria, and Nephrolithiasis who was diagnosed with COVID on 11/19/21 and presents on 11/28/21 with SARS CoV-2 Pneumonitis with Hypoxemia, Hypokalemia, and Hyponatremia elevated CRP at 13 on admission, repeat today procalcitonin also quite high at 25 suggesting possible bacterial infection dexamethasone, increase to 20mg IV daily x 5 days then 10mg IV x 5 days continue Rocephin IV, add doxycycline 100mg BID for 7 days total hold on baricitinib with possible bacterial infection, don't want to lower immune response further encourage her to lay prone as much as possible examines a little dry to euvolemic so will hold off on lasix currently up to 40L 100% this morning, from 4-5L NC on admission dramatic rise in oxygen requirements is concerning, CTA chest negative for PE on admission (2) Hypoxemia: Plan: acute hypoxic respiratory failure up to 40L 100% this morning, mild tachypnea but no accessory muscles and no distress lay prone as much as possible (3) Vomiting: Plan: She coughs to the point of gagging and then has some vomiting. -- May use Tessalon Perles as needed for cough. no cough today (4) Hypokalemia: Plan: repeat this morning Admission and Anticipated Discharge Date Admission Date: November 28, 2021 Subjective patient doing okay, RN had to place her on 40L 100% this morning, she says she feels much better denies dyspnea, cough, chest pain, fever she ate a little bit, drinking more water, she does not have much taste we discussed importance of prone position, she said she will lay on her stomach as much as she can, feels comfortable in that position discussed increasing dexamethasone to 20mg x 5 then 10mg x 5 reviewed baricitinib, with possible bacterial infection, already on two immune modulators as outpatient, will hold off encouraged her to eat and drink, lay prone, we will take care of the rest Review of Systems Review of Systems: All systems reviewed & are unremarkable except as noted in Subjective Constitutional: + fatigue and + weakness; no fever Respiratory: + dyspnea and + dyspnea on exertion; no cough and no sputum production Cardiovascular: no chest pain Gastrointestinal: no abdominal pain, no nausea, no vomiting, no constipation and no diarrhea/loose stools Physical Exam Physical Exam: General: well developed, well nourished, ill appearing female, no distress Neck: supple, trachea midline, normal thyroid Lungs: clear to auscultation bilaterally, + tachypnea, no accessory muscle use, no distress Heart: regular S1 and S2, no murmur, peripheral pulses normal, capillary refill normal, no edema Abdomen: soft, NT, ND, + BS, no hepatomegaly, normal to percussion Extremities: normal in appearance, no cyanosis, no petechiae, strength is 5/5 bilaterally Neuro: awake, cooperative, moves all extremities, no focal motor deficits, CN II-XII intact, sensation in extremities intact, normal speech Skin: warm, dry, no rash, normal turgor Psych: Awake, alert oriented x 3, euthymic affect Results & Data Results & Data ([facility]) Vital Signs (Past 12 Hours) Vital Signs Temp Pulse Pulse Resp BP BP Pulse Ox 11/29/21 09:33 83 11/29/21 08:07 22 90 11/29/21 07:36 36.9 C 94 H 20 91/56 L 88 L 11/29/21 07:19 105 H 20 89 L 11/29/21 05:46 92 11/29/21 02:42 36.5 C 89 22 99/66 L 11/28/21 23:03 36.7 C 98 H 20 96/59 L 90 Medications Administered Current Inpatient Medications Acetaminophen (Acetaminophen 325 Mg Tab) 650 mg PO Q4H PRN PRN Reason: Pain or Fever Stop: 12/28/21 12:10 Al Hydrox/Mg Hydrox/Simethicone (Aluminum/Magnesium Susp 30 Ml Udc) 15 ml PO Q4H PRN PRN Reason: Dyspepsia Stop: 12/28/21 12:10 Albuterol (Albuterol Hfa 8 Gm Inhaler) 1 puffs INH QIDR RADHA Stop: 12/28/21 14:59 Last Admin: 11/29/21 07:15 Dose: 1 puffs Documented by: Benzonatate (Benzonatate 100 Mg Capsule) 100 mg PO TID PRN PRN Reason: Cough Stop: 12/13/21 03:00 Last Admin: 11/29/21 08:26 Dose: 100 mg Documented by: Cyanocobalamin (Cyanocobalamin 500 Mcg Tablet (Vitamin B-12)) 1,000 mcg PO DAILY [facility]; Protocol Stop: 12/29/21 08:59 Last Admin: 11/29/21 08:20 Dose: 1,000 mcg Documented by: Enoxaparin Sodium (Enoxaparin Inj 40 Mg/0.4 Ml Syr) 40 mg SQ DAILY [facility] Stop: 12/28/21 13:29 Last Admin: 11/29/21 08:20 Dose: 40 mg Documented by: Epinephrine HCl (Epinephrine Inj 1 Mg/Ml Amp) 0.3 mg IM Q10M PRN PRN Reason: Allergic Reaction Stop: 12/28/21 13:17 Estradiol (Estradiol 1 Mg Tab) 0.5 mg PO DAILY [facility] Stop: 12/29/21 08:59 Last Admin: 11/29/21 08:20 Dose: 0.5 mg Documented by: Guaifenesin (Guaifenesin 600 Mg Tabcr) 1,200 mg PO Q12 RADHA Stop: 12/28/21 20:59 Last Admin: 11/29/21 08:20 Dose: 1,200 mg Documented by: Ceftriaxone Sodium 2,000 mg/ (Dextrose) 70 mls @ 100 mls/hr IV DAILY [facility]; Protocol Stop: 12/05/21 13:29 Last Infusion: 11/29/21 09:28 Dose: Infused Documented by: Dexamethasone 20 mg/ Syringe 5 mls @ 1 mls/min IV DAILY [facility] Stop: 12/29/21 08:59 Doxycycline Hyclate 100 mg/ (Dextrose) 110 mls @ 50 mls/hr IV Q12 RADHA Stop: 12/06/21 08:44 Last Admin: 11/29/21 10:08 Dose: 50 mls/hr Documented by: Dexamethasone 14 mg/ Dextrose 28.5 mls @ 55 mls/hr IV 0945 ONE Stop: 11/29/21 10:16 Last Admin: 11/29/21 09:44 Dose: 55 mls/hr Documented by: Ipratropium [place] (Ipratropium [place] Hfa Inhaler) 1 puffs INH QIDR [facility] Stop: 12/28/21 14:59 Last Admin: 11/29/21 07:15 Dose: 1 puffs Documented by: Magnesium Hydroxide (Magnesium Hydroxide Susp 30 Ml Udc) 30 ml PO Q12H PRN PRN Reason: Constipation Stop: 12/28/21 12:10 Miscellaneous (Nurtec: Order Awaiting Action) 1 ea N/A QS RADHA Stop: 12/28/21 15:59 Last Admin: 11/29/21 08:19 Dose: Not Given Documented by: Morphine Sulfate (Morphine Sulfate 2 Mg/Ml Carp) 2 mg IV Q30M PRN PRN Reason: Chest Pain Stop: 12/12/21 12:10 Ondansetron HCl (Ondansetron Inj 2 Mg/Ml 2 Ml Vial) 4 mg IV Q6H PRN PRN Reason: Nausea Stop: 12/28/21 12:10 Polyethylene Glycol (Polyethylene (Miralax) 17 Gm Pack) 17 gm PO DAILY PRN PRN Reason: Constipation Stop: 12/28/21 12:10 Vitamin D (Cholecalciferol 1,000 Units 25 Mcg Tab) 1,000 units PO DAILY [facility] Stop: 12/29/21 08:59 Last Admin: 11/29/21 08:20 Dose: 1,000 units Documented by: Zolpidem Tartrate (Zolpidem Tartrate 5 Mg Tab) 5 mg PO HS PRN PRN Reason: Sleep Stop: 12/28/21 12:10 PG Care Time/CCT Total # of Minutes Spent Total Time Spent with Patient: Total time spent is greater than 50% in coordination of care (as documented) at patient's floor/unit and/or counseling patient: Coding Level of Care Code 13053 Subseq Hosp Care Lvl 3 Diagnoses Pneumonia due to severe acute respiratory syndrome coronavirus 2 (SARS-CoV-2) U07.1; J12.82 Hypoxemia R09.02 Vomiting R11.10 Hypokalemia E87.6
[2021-11-29 11:11] LABS: BUN Creatinine Ratio 17.3 (10-20); Calcium 8.4 mg/dl (8.5-10.1); Creatinine Clr Calc Pharmacy 117.5 ml/min; Est GFR (African American) 127.3 ml/min; Est GFR (Non-African American) 109.9 ml/min; Potassium 3.8 mmol/L (3.5-5.1)
[2021-11-29] MEDS: SACCHAROMYCES BOULARDII 250 MG CAP PO SCH (16:30)
[2021-11-29] MEDS: LOPERAMIDE HCL 2 MG CAP PO SCH ×2 (17:48→22:19)
[2021-11-30] MEDS: LOPERAMIDE HCL 2 MG CAP PO SCH ×4 (04:55→23:37)
[2021-11-30] MEDS: ALBUTEROL HFA 8 GM INHALER INH SCH ×4 (07:37→20:10)
[2021-11-30] MEDS: IPRATROPIUM BROMIDE HFA INHALER INH SCH ×4 (07:37→20:10)
[2021-11-30 07:40] LABS: BUN Creatinine Ratio 26.4 (10-20); Calcium 8.8 mg/dl (8.5-10.1); Creatinine Clr Calc Pharmacy 150.9 ml/min; Est GFR (African American) 138.3 ml/min; Est GFR (Non-African American) 119.3 ml/min; Potassium 3.8 mmol/L (3.5-5.1)
[2021-11-30 07:41] LABS: C Reactive Protein 3.23 mg/dl (0-0.29)
--- NOTE | 2021-11-30 08:11 | Hospitalist Progress Note ---
Date of Service November 30, 2021 Assessment & Plan (1) Pneumonia due to severe acute respiratory syndrome coronavirus 2 (SARS -CoV-2): Plan: Mrs. Bruner is a 41 year old immunocompromised female (on monthly Fremanezumab and monthly Omalizumab) with a history of Migraine Headaches, Anaphylaxis with NSAID's, Urticaria, and Nephrolithiasis who was diagnosed with COVID on 11/19/21 and presents on 11/28/21 with SARS CoV-2 Pneumonitis with Hypoxemia, Hypokalemia, and Hyponatremia elevated CRP at 13 on admission, repeat down to 3 procalcitonin also quite high on admission at 25 suggesting possible bacterial infection dexamethasone, increased to 20mg IV daily on 11/29/21, day 2 of 5 days then 10mg IV x 5 days continue Rocephin IV, add doxycycline 100mg BID for 7 days total hold on baricitinib with possible bacterial infection, don't want to lower immune response further encourage her to lay prone as much as possible still examines a little dry due to diarrhea so will hold off on lasix currently stable at 40L 100% but needs less FiO2 when prone CTA chest negative for PE on admission (2) Hypoxemia: Plan: acute hypoxic respiratory failure stable on 40L 100% this morning, mild tachypnea but no accessory muscles and no distress lay prone as much as possible, yesterday was able to lower FiO2 to 90% (3) Vomiting: Plan: She coughs to the point of gagging and then has some vomiting. -- May use Tessalon Perles as needed for cough. no cough today (4) Hypokalemia: Plan: resolved with replacement 3.8 today (5) Dehydration: Plan: resolved, drinking better no need for IV fluids (6) Diarrhea: Plan: due to COVID 19 good response to Imodium q6 scheduled, continue for now, make PRN tomorrow Florastor daily Plan: try to wean FiO2 over next few days, prone as much as possible once diarrhea stops completely, consider lasix daily for negative fluid balance Admission and Anticipated Discharge Date Admission Date: November 28, 2021 Subjective patient doing well this morning, less diarrhea, eating better spending a lot of time on her side and belly, encouraged her to continue this, works really well reviewed labs, Cr and K are stable, CRP down to 3 from 13 she remains on 40L 100% but the FiO2 was turned up while eating, was down to 90% reminded her of the importance of trying to limit how much FiO2 she needs, she understands no nausea, no fever, no headache, no chest pain + dyspnea and + cough Review of Systems Review of Systems: All systems reviewed & are unremarkable except as noted in Subjective Physical Exam Physical Exam: General: well developed, well nourished, ill appearing female, no distress Neck: supple, trachea midline, normal thyroid Lungs: clear to auscultation bilaterally, + tachypnea, no accessory muscle use, no distress Heart: regular S1 and S2, no murmur, peripheral pulses normal, capillary refill normal, no edema Abdomen: soft, NT, ND, + BS, no hepatomegaly, normal to percussion Extremities: normal in appearance, no cyanosis, no petechiae, strength is 5/5 bilaterally Neuro: awake, cooperative, moves all extremities, no focal motor deficits, CN II-XII intact, sensation in extremities intact, normal speech Skin: warm, dry, no rash, normal turgor Psych: Awake, alert oriented x 3, euthymic affect Results & Data Results & Data ([facility]) Vital Signs (Past 12 Hours) Vital Signs Temp Pulse Resp BP Pulse Ox 11/30/21 08:03 36.6 C 71 20 95/60 L 86 L 11/30/21 07:42 84 22 89 L 11/30/21 04:38 36.4 C L 72 20 92/57 L 95 11/30/21 03:34 87 22 90 11/29/21 23:01 78 22 92 11/29/21 22:15 36.3 C L 106 H 22 160/76 H 91 11/29/21 20:13 36.8 C 103 H 24 133/84 90 Laboratory Results Laboratory Results - last 24 hr 11/29/21 11/30/21 10:34 05:52 Sodium 136 134 L Potassium 3.8 D 3.8 Chloride 104 102 Carbon Dioxide 26 25 Anion Gap 7.0 7.0 BUN 11 13 Creatinine 0.63 0.49 L Est Cr Clr Drug Dosing 117.5 150.9 Est GFR ( Amer) 127.3 138.3 Est GFR (Non-Af Amer) 109.9 119.3 BUN/Creatinine Ratio 17.3 26.4 H Glucose 269 H 251 H Calcium 8.4 L 8.8 C-Reactive Protein 3.23 H Medications Administered Current Inpatient Medications Acetaminophen (Acetaminophen 325 Mg Tab) 650 mg PO Q4H PRN PRN Reason: Pain or Fever Stop: 12/28/21 12:10 Al Hydrox/Mg Hydrox/Simethicone (Aluminum/Magnesium Susp 30 Ml Udc) 15 ml PO Q4H PRN PRN Reason: Dyspepsia Stop: 12/28/21 12:10 Albuterol (Albuterol Hfa 8 Gm Inhaler) 1 puffs INH QIDR RADHA Stop: 12/28/21 14:59 Last Admin: 11/30/21 07:37 Dose: 1 puffs Documented by: Benzonatate (Benzonatate 100 Mg Capsule) 100 mg PO TID PRN PRN Reason: Cough Stop: 12/13/21 03:00 Last Admin: 11/29/21 20:10 Dose: 100 mg Documented by: Cyanocobalamin (Cyanocobalamin 500 Mcg Tablet (Vitamin B-12)) 1,000 mcg PO DAILY [facility]; Protocol Stop: 12/29/21 08:59 Last Admin: 11/29/21 08:20 Dose: 1,000 mcg Documented by: Enoxaparin Sodium (Enoxaparin Inj 40 Mg/0.4 Ml Syr) 40 mg SQ DAILY [facility] Stop: 12/28/21 13:29 Last Admin: 11/29/21 08:20 Dose: 40 mg Documented by: Epinephrine HCl (Epinephrine Inj 1 Mg/Ml Amp) 0.3 mg IM Q10M PRN PRN Reason: Allergic Reaction Stop: 12/28/21 13:17 Estradiol (Estradiol 1 Mg Tab) 0.5 mg PO DAILY RADHA Stop: 12/29/21 08:59 Last Admin: 11/29/21 08:20 Dose: 0.5 mg Documented by: Guaifenesin (Guaifenesin 600 Mg Tabcr) 1,200 mg PO Q12 RADHA Stop: 12/28/21 20:59 Last Admin: 11/29/21 20:09 Dose: 1,200 mg Documented by: Ceftriaxone Sodium 2,000 mg/ (Dextrose) 70 mls @ 100 mls/hr IV DAILY [facility]; Protocol Stop: 12/05/21 13:29 Last Infusion: 11/29/21 09:28 Dose: Infused Documented by: Dexamethasone 20 mg/ Dextrose 30 mls @ 1 mls/min IV DAILY [facility] Stop: 12/03/21 09:29 Doxycycline Hyclate 100 mg/ (Dextrose) 110 mls @ 50 mls/hr IV Q12 [facility] Stop: 12/06/21 08:44 Last Infusion: 11/29/21 23:29 Dose: Infused Documented by: Dexamethasone 10 mg/ Syringe 2.5 mls @ 1 mls/min IV DAILY [facility] Stop: 12/08/21 09:03 Ipratropium Funk (Ipratropium Funk Hfa Inhaler) 1 puffs INH QIDR [facility] Stop: 12/28/21 14:59 Last Admin: 11/30/21 07:37 Dose: 1 puffs Documented by: Loperamide HCl (Loperamide Hcl 2 Mg Cap) 2 mg PO Q6 [facility] Stop: 12/29/21 17:59 Last Admin: 11/30/21 04:55 Dose: 2 mg Documented by: Magnesium Hydroxide (Magnesium Hydroxide Susp 30 Ml Udc) 30 ml PO Q12H PRN PRN Reason: Constipation Stop: 12/28/21 12:10 Miscellaneous (Nurtec: Order Awaiting Action) 1 ea N/A QS [facility] Stop: 12/28/21 15:59 Last Admin: 11/29/21 22:19 Dose: Not Given Documented by: Morphine Sulfate (Morphine Sulfate 2 Mg/Ml Carp) 2 mg IV Q30M PRN PRN Reason: Chest Pain Stop: 12/12/21 12:10 Ondansetron HCl (Ondansetron Inj 2 Mg/Ml 2 Ml Vial) 4 mg IV Q6H PRN PRN Reason: Nausea Stop: 12/28/21 12:10 Polyethylene Glycol (Polyethylene (Miralax) 17 Gm Pack) 17 gm PO DAILY PRN PRN Reason: Constipation Stop: 12/28/21 12:10 Saccharomyces Boulardii (Saccharomyces Boulardii 250 Mg Cap) 250 mg PO DAILY [facility] Stop: 12/29/21 14:59 Last Admin: 11/29/21 16:30 Dose: 250 mg Documented by: Vitamin D (Cholecalciferol 1,000 Units 25 Mcg Tab) 1,000 units PO DAILY [facility] Stop: 12/29/21 08:59 Last Admin: 11/29/21 08:20 Dose: 1,000 units Documented by: Zolpidem Tartrate (Zolpidem Tartrate 5 Mg Tab) 5 mg PO HS PRN PRN Reason: Sleep Stop: 12/28/21 12:10 PG Care Time/CCT Total # of Minutes Spent Total Time Spent with Patient: Total time spent is greater than 50% in coordination of care (as documented) at patient's floor/unit and/or counseling patient: Coding Level of Care Code 20577 Subseq Hosp Care Lvl 3 Diagnoses Pneumonia due to severe acute respiratory syndrome coronavirus 2 (SARS-CoV-2) U07.1; J12.82 Hypoxemia R09.02 Vomiting R11.10 Hypokalemia E87.6 Dehydration E86.0 Diarrhea R19.7
[2021-11-30] MEDS: DOXYCYCLINE HYCLATE 100 MG in DEXTROSE 5% 100 ML IV SCH ×2 (08:20→20:21)
[2021-11-30] MEDS: dexAMETHasone 20 MG in DEXTROSE 5% 25 ML IV SCH (08:21)
[2021-11-30] MEDS: cefTRIAXone SODIUM 2,000 MG in DEXTROSE 5% 50 ML IV SCH (08:21)
[2021-11-30] MEDS: CYANOCOBALAMIN 500 MCG TABLET (VITAMIN B-12) PO SCH (08:22)
[2021-11-30] MEDS: estradioL 1 MG TAB PO SCH (08:22)
[2021-11-30] MEDS: CHOLECALCIFEROL 1,000 UNITS 25 MCG TAB PO SCH (08:22)
[2021-11-30] MEDS: ENOXAPARIN INJ 40 MG/0.4 ML SYR SQ SCH (08:22)
[2021-11-30] MEDS: guaiFENesin 600 MG TABCR PO SCH ×2 (08:22→20:21)
[2021-11-30] MEDS: SACCHAROMYCES BOULARDII 250 MG CAP PO SCH (08:23)
[2021-12-01] MEDS: LOPERAMIDE HCL 2 MG CAP PO SCH ×4 (06:10→23:39)
[2021-12-01] MEDS: BENZONATATE 100 MG CAPSULE PO PRN (06:12)
[2021-12-01] MEDS: ALBUTEROL HFA 8 GM INHALER INH SCH ×4 (07:56→19:20)
[2021-12-01] MEDS: IPRATROPIUM BROMIDE HFA INHALER INH SCH ×4 (07:56→19:21)
[2021-12-01] MEDS: SACCHAROMYCES BOULARDII 250 MG CAP PO SCH (08:11)
[2021-12-01] MEDS: cefTRIAXone SODIUM 2,000 MG in DEXTROSE 5% 50 ML IV SCH (08:11)
[2021-12-01] MEDS: CYANOCOBALAMIN 500 MCG TABLET (VITAMIN B-12) PO SCH (08:11)
[2021-12-01] MEDS: ENOXAPARIN INJ 40 MG/0.4 ML SYR SQ SCH (08:11)
[2021-12-01] MEDS: estradioL 1 MG TAB PO SCH (08:11)
[2021-12-01] MEDS: DOXYCYCLINE HYCLATE 100 MG in DEXTROSE 5% 100 ML IV SCH ×2 (08:11→21:35)
[2021-12-01] MEDS: CHOLECALCIFEROL 1,000 UNITS 25 MCG TAB PO SCH (08:12)
[2021-12-01] MEDS: guaiFENesin 600 MG TABCR PO SCH ×2 (08:12→20:18)
[2021-12-01] MEDS: dexAMETHasone 20 MG in DEXTROSE 5% 25 ML IV SCH (08:13)
[2021-12-01 10:40] LABS: Hematocrit (blood only) 35.9 % (37-47); Hemoglobin 11.9 g/dL (12.0-16.0); Immature Granulocytes # (auto) 0.04 K/uL (0.00-0.02); Immature Granulocytes % (auto) 0.7 %; Lymphocytes # (auto) 1.06 K/uL (1.2-3.4); Lymphocytes % (auto) 18.2 %; Mean Corpuscular Hemoglobin 27.4 pg (25-34); Mean Corpuscular Hgb Conc 33.1 g/dL (32-36); Mean Corpuscular Volume 82.7 fL (80-100); Mean Platelet Volume 9.8 fL (7.4-10.4); Monocytes # (auto) 0.28 K/uL (0.11-0.59); Monocytes % (auto) 4.8 %; Neutrophils # (auto) 4.44 K/uL (1.4-6.5); Neutrophils % (auto) 76.3 %; Platelet Count 394 K/uL (130-400); RDW Coefficient of Variation 12.6 % (11.5-14.5); RDW Standard Deviation 38.3 fL (36.4-46.3); Red Blood Count 4.34 M/uL (4.2-5.4); White Blood Count 5.82 K/uL (4.8-10.8)
[2021-12-01 11:01] LABS: BUN Creatinine Ratio 25.1 (10-20); C Reactive Protein 1.22 mg/dl (0-0.29); Calcium 8.7 mg/dl (8.5-10.1); Creatinine Clr Calc Pharmacy 128.4 ml/min; Est GFR (African American) 130.8 ml/min; Est GFR (Non-African American) 112.9 ml/min; Potassium 3.5 mmol/L (3.5-5.1)
[2021-12-01] MEDS: PANTOprazole 40 MG TAB PO SCH (11:11)
--- NOTE | 2021-12-01 12:31 | Hospitalist Progress Note ---
Date of Service December 01, 2021 Assessment & Plan (1) Pneumonia due to severe acute respiratory syndrome coronavirus 2 (SARS -CoV-2): Plan: diagnosed with COVID on 11/19/21. elevated CRP at 13 on admission - now markedly improved. VERY HIGH procalcitonin at admission with level of 25 highly suggestive of bacterial superinfection. overall improving. Remains on dexamethasone IV. Increased to 20mg IV daily on 11/29/21, day 3 of 5 days; then 10mg IV x 5 days. continue Rocephin IV, day #4 today. continue doxycycline 100mg BID for 7 days total, day #3 today. Not a candidate for baricitinib given her chronic immune suppressive therapies she takes. (2) Hypoxemia: Plan: acute hypoxic respiratory failure. Peak O2 requirement - HFNC, 40L 100% FiO2. IMPROVED. now on wall-mounted HFNC. (3) Vomiting: Plan: resolved (4) Hypokalemia: Plan: repleted resolved (5) Dehydration: Plan: resolved (6) Diarrhea: Plan: due to COVID 19 infection stopped with scheduled loperamide will make the loperamide PRN if diarrhea persists off the loperamide - check c diff testing (7) Diabetes mellitus type 2, uncontrolled: Plan: BSGs VERY high check a1c in am add lantus add novolog add metformin xr bsgs ac/hs change diet to diabetic diet (8) Migraine with aura and without status migrainosus, not intractable: Plan: Previously on monthly Fremanezumab. states she hasn't taken it recently. denies any current headache. (9) Chronic urticaria: Plan: On Xolair injections for such (not asthma). urticaria controlled. (10) DVT prophylaxis: Plan: lovenox SC increase to BID dosing check a baseline d-dimer likely should take xarelto prophylaxis 10mg at discharge given severity of illness Plan: updated by phone this evening Admission and Anticipated Discharge Date Admission Date: November 28, 2021 Subjective patient is "feeling better" cough, dyspnea, etc improved fatigue improved appetite better still with diarrhea but much improved; none today tele overnight wnl pt states she was taking metformin prior to admission for pre-DM we discussed her high blood sugars high-flow NC stopped this am; weaned to wall-mounted HFNC she is pleased with progress Review of Systems Review of Systems: gen - no fevers/chills CV - no chest pain, no orthopnea pulm - slight pink-tinged sputum, dyspnea on exertion GI - no abd pain, N/V Physical Exam Physical Exam: gen - looks good, NAD, pleasant mouth - MMM neck - no JVD heart - RRR, s1 s2 lungs - b/l basilar rales; no increased work of breathing abd - soft NT ND BS+ ext - no edema, pulses 2+ b/l Results & Data Results & Data ([facility]) Vital Signs (Past 12 Hours) Vital Signs Temp Pulse Resp BP BP Pulse Ox 12/01/21 11:41 36.6 C 74 15 98/62 L 90 12/01/21 11:14 71 18 96 12/01/21 08:25 36.4 C L 77 15 95/63 L 89 L 12/01/21 07:56 86 20 92 12/01/21 03:17 36.4 C L 76 18 98/64 L 91 12/01/21 02:40 59 L 18 95 12/01/21 01:00 93 Laboratory Results Laboratory Results - last 24 hr 12/01/21 12/01/21 12/01/21 10:28 10:28 10:28 WBC 5.82 RBC 4.34 Hgb 11.9 L Hct 35.9 L MCV 82.7 MCH 27.4 MCHC 33.1 RDW Std Deviation 38.3 RDW Coeff of Leslie 12.6 Plt Count 394 MPV 9.8 Immature Gran % (Auto) 0.7 Neut % (Auto) 76.3 Lymph % (Auto) 18.2 [place] % (Auto) 4.8 Eos % (Auto) 0.0 Baso % (Auto) 0.0 Neut # (Auto) 4.44 Lymph # (Auto) 1.06 L [place] # (Auto) 0.28 Eos # (Auto) 0.00 Baso # (Auto) 0.00 Immature Gran # (Auto) 0.04 H Sodium 135 L Potassium 3.5 Chloride 103 Carbon Dioxide 25 Anion Gap 6.0 BUN 15 Creatinine 0.58 L Est Cr Clr Drug Dosing 128.4 Est GFR ( Amer) 130.8 Est GFR (Non-Af Amer) 112.9 BUN/Creatinine Ratio 25.1 H Glucose 266 H Calcium 8.7 AST 70 H ALT 51 C-Reactive Protein 1.22 H Procalcitonin 1.86 H PG Care Time/CCT Total # of Minutes Spent Total Time Spent with Patient: Total time spent is greater than 50% in coordination of care (as documented) at patient's floor/unit and/or counseling patient: Coding Level of Care Code 25055 Subseq Hosp Care Lvl 3 Diagnoses Pneumonia due to severe acute respiratory syndrome coronavirus 2 (SARS-CoV-2) U07.1; J12.82 Hypoxemia R09.02 Vomiting R11.10 Hypokalemia E87.6 Dehydration E86.0 Diarrhea R19.7 Diabetes mellitus type 2, uncontrolled E11.65 DVT prophylaxis Z29.9 Migraine with aura and without status migrainosus, not intractable G43.109 Chronic urticaria L50.8
[2021-12-01] MEDS: metFORMIN HCL ER 500 MG TABCR PO SCH (16:51)
[2021-12-01] MEDS ORDERED: GLUCAGON FOR INJ 1 MG VIAL IM PRN (17:45)
[2021-12-01] MEDS ORDERED: GLUCOSE 10 TABS/TUBE PO PRN (17:45)
[2021-12-01] MEDS ORDERED: CARBOHYDRATES FOR HYPOGLYCEMIA PO PRN (17:45)
[2021-12-01] MEDS ORDERED: GLUCOSE 40% GEL 15 GM TUBE PO PRN (17:45)
[2021-12-01] MEDS ORDERED: DEXTROSE 50% 50 ML SYRINGE IV PRN (17:45)
[2021-12-01] MEDS ORDERED: INSULIN ASPART PER UNIT SC ONE (18:00)
[2021-12-01] MEDS: INSULIN ASPART PER UNIT SC SCH (20:01)
[2021-12-01] MEDS ORDERED: INSULIN GLARGINE SOLOSTAR 100 UNITS/ML 3 ML PEN SC SCH (21:00)
[2021-12-02] MEDS: BENZONATATE 100 MG CAPSULE PO PRN (03:33)
[2021-12-02] MEDS ORDERED: SODIUM CHLORIDE 0.65% NA SOLN 45 ML (OCEAN) STA (03:38)
[2021-12-02] MEDS: LOPERAMIDE HCL 2 MG CAP PO SCH (05:09)
[2021-12-02] MEDS ORDERED: LOPERAMIDE HCL 2 MG CAP PO PRN (06:28)
[2021-12-02] MEDS: ALBUTEROL HFA 8 GM INHALER INH SCH ×2 (07:25→13:32)
[2021-12-02] MEDS: IPRATROPIUM BROMIDE HFA INHALER INH SCH ×2 (07:25→13:33)
[2021-12-02 08:03] LABS: D Dimer 3010 ug/L FEU (0-500)
[2021-12-02 08:07] LABS: BUN Creatinine Ratio 28.1 (10-20); Calcium 8.6 mg/dl (8.5-10.1); Creatinine Clr Calc Pharmacy 135.3 ml/min; Est GFR (African American) 133.1 ml/min; Est GFR (Non-African American) 114.9 ml/min; Phosphorus 2.7 mg/dl (2.5-4.9); Potassium 3.8 mmol/L (3.5-5.1)
[2021-12-02] MEDS: dexAMETHasone 20 MG in DEXTROSE 5% 25 ML IV SCH (08:24)
[2021-12-02] MEDS: estradioL 1 MG TAB PO SCH (08:28)
[2021-12-02] MEDS: SACCHAROMYCES BOULARDII 250 MG CAP PO SCH (08:28)
[2021-12-02] MEDS: guaiFENesin 600 MG TABCR PO SCH ×2 (08:28→20:40)
[2021-12-02] MEDS: PANTOprazole 40 MG TAB PO SCH (08:28)
[2021-12-02] MEDS: ENOXAPARIN INJ 40 MG/0.4 ML SYR SQ SCH ×2 (08:28→20:39)
[2021-12-02] MEDS: CYANOCOBALAMIN 500 MCG TABLET (VITAMIN B-12) PO SCH (08:28)
[2021-12-02] MEDS: CHOLECALCIFEROL 1,000 UNITS 25 MCG TAB PO SCH (08:29)
[2021-12-02] MEDS: DOXYCYCLINE HYCLATE 100 MG in DEXTROSE 5% 100 ML IV SCH ×2 (08:50→20:38)
[2021-12-02] MEDS: INSULIN GLARGINE SOLOSTAR 100 UNITS/ML 3 ML PEN SC SCH ×2 (08:59→21:41)
[2021-12-02] MEDS: INSULIN ASPART PER UNIT SC SCH ×4 (08:59→20:28)
[2021-12-02 10:15] LABS: Estimated Average Glucose 186 mg/dl; Hemoglobin A1C 8.1 % (4.5-5.6)
[2021-12-02] MEDS: cefTRIAXone SODIUM 2,000 MG in DEXTROSE 5% 50 ML IV SCH (11:09)
--- NOTE | 2021-12-02 11:34 | Hospitalist Progress Note ---
Date of Service December 02, 2021 Assessment & Plan (1) Pneumonia due to severe acute respiratory syndrome coronavirus 2 (ARANZA S-CoV-2): Plan: IMPROVED. diagnosed with COVID on 11/19/21. elevated CRP at 13 on admission - now markedly improved. VERY HIGH procalcitonin at admission with level of 25 highly suggestive of bacterial superinfection. procal also improved. continues to wean on her o2. Remains on dexamethasone IV. Increased to 20mg IV daily on 11/29/21, day 4 of 5 days; then 10mg IV x 5 days. continue Rocephin IV, day #5 today. continue doxycycline 100mg BID for 7 days total, day #4 today. Not a candidate for baricitinib given her chronic immune suppressive therapies she takes. (2) Hypoxemia: Plan: acute hypoxic respiratory failure. Peak O2 requirement - HFNC, 40L 100% FiO2. continues to IMPROVE. now on wall-mounted HFNC and weaning very nicely. (3) Diabetes mellitus type 2, uncontrolled: Plan: BSGs VERY high check a1c in am cont AM and PM lantus - increase latter to 20 units adjust novolog cont metformin xr bsgs ac/hs change diet to diabetic diet (4) Vomiting: Plan: resolved (5) Hypokalemia: Plan: repleted resolved (6) Dehydration: Plan: resolved (7) Diarrhea: Plan: due to COVID 19 infection stopped scheduled loperamide if diarrhea persists off the loperamide - check c diff testing (8) Migraine with aura and without status migrainosus, not intractable: Plan: Previously on monthly Fremanezumab. states she hasn't taken it recently. denies any current headache. (9) Chronic urticaria: Plan: On Xolair injections for such (not asthma). urticaria controlled. (10) DVT prophylaxis: Plan: lovenox SC BID baseline d-dimer very high should take xarelto prophylaxis 10mg at discharge given severity of illness and dimer elevation RLE venous duplex study negative for DVT Plan: updated by phone this evening I am pleased with her progress Admission and Anticipated Discharge Date Admission Date: November 28, 2021 Subjective pt feeling "very good today" energy and appetite returning to normal cough improved dyspnea improved previous pink sputum improved/resolved no new complaints tele overnight wnl Review of Systems Review of Systems: gen - no fevers or chills cv - no chest pain; no orthopnea pulm - cough, no chest tightness or pleuritic pain GI - no abd pain/n/v Physical Exam Physical Exam: gen - looks good, NAD, pleasant mouth - MMM neck - no JVD heart - RRR, s1 s2 lungs - b/l basilar rales; no increased work of breathing abd - soft NT ND BS+ ext - no edema, pulses 2+ b/l; right leg/calf slightly warm, slightly larger than left calf psych - a/o x 3 Results & Data Results & Data ([facility]) Vital Signs (Past 12 Hours) Vital Signs Temp Pulse Pulse Resp BP Pulse Ox 12/02/21 08:45 95 12/02/21 07:47 36.5 C 66 19 98/60 L 92 12/02/21 07:27 77 20 85 L 12/02/21 07:08 59 L 12/02/21 03:36 36.4 C L 61 18 100/64 91 12/01/21 23:42 36.4 C L 58 L 16 95/61 L 95 Laboratory Results Laboratory Results - last 24 hr 12/01/21 12/01/21 12/01/21 16:50 16:52 16:54 D-Dimer Sodium Potassium Chloride Carbon Dioxide Anion Gap BUN Creatinine Est Cr Clr Drug Dosing Est GFR ( Amer) Est GFR (Non-Af Amer) BUN/Creatinine Ratio Glucose POC Glucose 323 H* 389 H* 379 H* Estimat Average Glucose Hemoglobin A1c Calcium Phosphorus 12/01/21 12/02/21 12/02/21 19:37 06:59 06:59 D-Dimer Sodium 139 Potassium 3.8 Chloride 105 Carbon Dioxide 25 Anion Gap 8.0 BUN 16 Creatinine 0.55 L Est Cr Clr Drug Dosing 135.3 Est GFR ( Amer) 133.1 Est GFR (Non-Af Amer) 114.9 BUN/Creatinine Ratio 28.1 H Glucose 182 H POC Glucose 293 H Estimat Average Glucose 186 Hemoglobin A1c 8.1 H Calcium 8.6 Phosphorus 2.7 12/02/21 12/02/21 06:59 07:49 D-Dimer 3010 H* Sodium Potassium Chloride Carbon Dioxide Anion Gap BUN Creatinine Est Cr Clr Drug Dosing Est GFR ( Amer) Est GFR (Non-Af Amer) BUN/Creatinine Ratio Glucose POC Glucose 184 H Estimat Average Glucose Hemoglobin A1c Calcium Phosphorus PG Care Time/CCT Total # of Minutes Spent Total Time Spent with Patient: Total time spent is greater than 50% in coordination of care (as documented) at patient's floor/unit and/or counseling patient: Coding Level of Care Code 84596 Subseq Hosp Care Lvl 3 Diagnoses Pneumonia due to severe acute respiratory syndrome coronavirus 2 (SARS-CoV-2) U07.1; J12.82 Hypoxemia R09.02 Vomiting R11.10 Hypokalemia E87.6 Dehydration E86.0 Diarrhea R19.7 Diabetes mellitus type 2, uncontrolled E11.65 Migraine with aura and without status migrainosus, not intractable G43.109 Chronic urticaria L50.8 DVT prophylaxis Z29.9
[2021-12-02] MEDS ORDERED: POTASSIUM CHLORIDE CRTAB 20 MEQ TABCR PO STA (14:21)
[2021-12-02] MEDS ORDERED: FUROSEMIDE 20 MG TAB PO ONE (14:21)
[2021-12-02] MEDS ORDERED: ALBUTEROL HFA 8 GM INHALER INH PRN (14:53)
[2021-12-02] MEDS ORDERED: IPRATROPIUM BROMIDE HFA INHALER INH PRN (14:54)
--- NOTE | 2021-12-02 16:10 | Ultrasound Report ---
US venous doppler LE RT CLINICAL HISTORY: R leg swelling, severe COVID, high d-dimer COMPARISON: None available at the time of this dictation. TECHNIQUE: Right lower extremity real-time compression venous ultrasound with Color Doppler imaging. Utilizing real-time ultrasonic imaging multiple real time high-resolution ultrasonic images with comp ression and noncompression maneuvers of the deep venous system in addition to color doppler imaging w ere performed from the common femoral vein through the proximal calf veins. FINDINGS: Currently there is normal compressibility of the deep venous system from the common femoral vein thro ugh the proximal calf veins. No current evidence of acute thrombosis is identified. Impression: No evidence of deep venous thrombus. ACT 112: Negative or not required by law. Electronically signed by: Calixto King M.D. 12/02/2021 4:08 PM
[2021-12-02] MEDS: metFORMIN HCL ER 500 MG TABCR PO SCH (17:06)
[2021-12-03] MEDS: BENZONATATE 100 MG CAPSULE PO PRN (02:51)
[2021-12-03 07:21] LABS: Hemoglobin 13.5 g/dL (12.0-16.0); Mean Corpuscular Hemoglobin 27.8 pg (25-34); Mean Corpuscular Hgb Conc 33.8 g/dL (32-36); Mean Corpuscular Volume 82.3 fL (80-100); Mean Platelet Volume 9.5 fL (7.4-10.4); Platelet Count 422 K/uL (130-400); RDW Coefficient of Variation 12.6 % (11.5-14.5); RDW Standard Deviation 37.8 fL (36.4-46.3); Red Blood Count 4.86 M/uL (4.2-5.4); White Blood Count 9.39 K/uL (4.8-10.8)
[2021-12-03 07:48] LABS: BUN Creatinine Ratio 34.3 (10-20); Calcium 8.4 mg/dl (8.5-10.1); Creatinine Clr Calc Pharmacy 146.9 ml/min; Est GFR (African American) 137.4 ml/min; Est GFR (Non-African American) 118.5 ml/min; Potassium 3.4 mmol/L (3.5-5.1)
[2021-12-03] MEDS: dexAMETHasone 20 MG in DEXTROSE 5% 25 ML IV SCH (08:06)
[2021-12-03] MEDS: estradioL 1 MG TAB PO SCH (08:09)
[2021-12-03] MEDS: guaiFENesin 600 MG TABCR PO SCH ×2 (08:09→22:01)
[2021-12-03] MEDS: CYANOCOBALAMIN 500 MCG TABLET (VITAMIN B-12) PO SCH (08:09)
[2021-12-03] MEDS: CHOLECALCIFEROL 1,000 UNITS 25 MCG TAB PO SCH (08:10)
[2021-12-03] MEDS: SACCHAROMYCES BOULARDII 250 MG CAP PO SCH (08:10)
[2021-12-03] MEDS: PANTOprazole 40 MG TAB PO SCH (08:10)
[2021-12-03] MEDS: ENOXAPARIN INJ 40 MG/0.4 ML SYR SQ SCH ×2 (08:10→22:01)
[2021-12-03] MEDS: cefTRIAXone SODIUM 2,000 MG in DEXTROSE 5% 50 ML IV SCH (08:34)
[2021-12-03] MEDS ORDERED: POTASSIUM CHLORIDE CRTAB 20 MEQ TABCR PO STA (08:40)
[2021-12-03] MEDS ORDERED: FUROSEMIDE 20 MG TAB PO ONE (08:40)
[2021-12-03] MEDS: DOXYCYCLINE HYCLATE 100 MG in DEXTROSE 5% 100 ML IV SCH (09:03)
[2021-12-03] MEDS: INSULIN ASPART PER UNIT SC SCH ×4 (09:27→21:25)
[2021-12-03] MEDS: INSULIN GLARGINE SOLOSTAR 100 UNITS/ML 3 ML PEN SC SCH ×2 (09:30→21:35)
[2021-12-03] MEDS ORDERED: POTASSIUM CHLORIDE CRTAB 20 MEQ TABCR PO ONE (14:00)
[2021-12-03] MEDS: metFORMIN HCL ER 500 MG TABCR PO SCH (17:45)
--- NOTE | 2021-12-03 19:14 | Hospitalist Progress Note ---
Date of Service December 03, 2021 Assessment & Plan (1) Pneumonia due to severe acute respiratory syndrome coronavirus 2 (ARANZA S-CoV-2): Plan: IMPROVING/RESOLVING. weaning very nicely from her O2. down to 4 L NC O2 today. diagnosed with COVID on 11/19/21. elevated CRP at 13 on admission - now markedly improved. VERY HIGH procalcitonin at admission with level of 25 highly suggestive of bacterial superinfection. procal also improved. Remains on dexamethasone IV. Increased to 20mg IV daily on 11/29/21, day 5 of 5 days; then 10mg IV x 5 days starting tomorrow. continue Rocephin IV, day #6 today. stop doxycycline due to ?allergy. will place doxycycline on allergy list. follows with Dr Jet Perez allergy - will need to f/u with him to determine if she truly has allergy. Was not a candidate for baricitinib given her chronic immune suppressive therapi es she takes. Regardless continues to improve. (2) Hypoxemia: Plan: acute hypoxic respiratory failure. Peak O2 requirement - HFNC, 40L 100% FiO2. continues to IMPROVE. now on wall-mounted HFNC and weaning very nicely. once she is down to about 2 L can consider hospital discharge. (3) Diabetes mellitus type 2, uncontrolled: Plan: remains uncontrolled before lunch, before dinner, at HS increase metformin to BID dosing. increase novolog carb coverage/correction cont lantus BID a1c noted to be 8%. may need a shot of lantus at discharge. (4) Vomiting: Plan: resolved (5) Hypokalemia: Plan: minimal today, due to lasix replace repeat BMP am (6) Dehydration: Plan: resolved (7) Diarrhea: Plan: due to COVID 19 infection resolved (8) Migraine with aura and without status migrainosus, not intractable: Plan: Previously on monthly Fremanezumab. states she hasn't taken it recently. denies any current headache. (9) Chronic urticaria: Plan: On Xolair injections for such (not asthma). urticaria controlled. (10) DVT prophylaxis: Plan: lovenox SC BID baseline d-dimer very high should take xarelto prophylaxis 10mg at discharge given severity of illness and dimer elevation RLE venous duplex study negative for DVT Plan: updated by phone once again this evening I am pleased with her progress - home next 48 hours?? Admission and Anticipated Discharge Date Admission Date: November 28, 2021 Subjective tele stable overnight patient "feeling great" anxious to get home weaning on O2 - during the visit I took her down to 3 L - sats 89/90% on 3 L left her on 4 L when I left her room coughing, but mainly dry no dyspnea no chest pain no GI symptoms eating well she has noted that with doxycycline administration her hands get warm, itchy, and modestly red. she has had similar reactions with other medications in the past. Review of Systems Review of Systems: gen - no fevers, no chills CV - no orthopnea pulm - no dyspnea at rest; no hemoptysis GI - no N/V; diarrhea has not returned Physical Exam Physical Exam: gen - looks great, NAD, pleasant mouth - MMM neck - no JVD heart - RRR, s1 s2, no murmur lungs - b/l basilar rales MUCH improved; no increased work of breathing; no whe ezing; good air movement abd - soft NT ND BS+ ext - no edema, pulses 2+ b/l psych - a/o x 3 Results & Data Results & Data ([facility]) Vital Signs (Past 12 Hours) Vital Signs Temp Pulse Pulse Resp BP Pulse Ox Pulse Ox 12/03/21 14:48 84 12/03/21 12:00 97 12/03/21 11:32 36.7 C 89 20 106/65 94 12/03/21 07:40 36.3 C L 71 20 98/60 L 91 12/03/21 07:38 61 Laboratory Results Laboratory Results - last 24 hr 12/02/21 12/03/21 12/03/21 19:38 07:00 07:00 WBC 9.39 RBC 4.86 Hgb 13.5 Hct 40.0 MCV 82.3 MCH 27.8 MCHC 33.8 RDW Std Deviation 37.8 RDW Coeff of Leslie 12.6 Plt Count 422 H MPV 9.5 Sodium 138 Potassium 3.4 L Chloride 105 Carbon Dioxide 27 Anion Gap 6.0 BUN 17 Creatinine 0.50 L Est Cr Clr Drug Dosing 146.9 Est GFR ( Amer) 137.4 Est GFR (Non-Af Amer) 118.5 BUN/Creatinine Ratio 34.3 H Glucose 120 H POC Glucose 269 H Calcium 8.4 L AST 59 H 12/03/21 12/03/21 12/03/21 07:39 11:40 17:02 WBC RBC Hgb Hct MCV MCH MCHC RDW Std Deviation RDW Coeff of Leslie Plt Count MPV Sodium Potassium Chloride Carbon Dioxide Anion Gap BUN Creatinine Est Cr Clr Drug Dosing Est GFR ( Amer) Est GFR (Non-Af Amer) BUN/Creatinine Ratio Glucose POC Glucose 122 H 192 H 242 H Calcium AST PG Care Time/CCT Total # of Minutes Spent Total Time Spent with Patient: Total time spent is greater than 50% in coordination of care (as documented) at patient's floor/unit and/or counseling patient: Coding Level of Care Code 94983 Subseq Hosp Care Lvl 3 Diagnoses Pneumonia due to severe acute respiratory syndrome coronavirus 2 (SARS-CoV-2) U07.1; J12.82 Hypoxemia R09.02 Diabetes mellitus type 2, uncontrolled E11.65 Vomiting R11.10 Hypokalemia E87.6 Dehydration E86.0 Diarrhea R19.7 Migraine with aura and without status migrainosus, not intractable G43.109 Chronic urticaria L50.8 DVT prophylaxis Z29.9
[2021-12-04 07:11] LABS: BUN Creatinine Ratio 38.8 (10-20); Calcium 8.5 mg/dl (8.5-10.1); Creatinine Clr Calc Pharmacy 150.6 ml/min; Est GFR (African American) 138.3 ml/min; Est GFR (Non-African American) 119.3 ml/min; Potassium 3.8 mmol/L (3.5-5.1)
[2021-12-04] MEDS: INSULIN ASPART PER UNIT SC SCH ×3 (08:28→17:30)
[2021-12-04] MEDS: estradioL 1 MG TAB PO SCH (08:52)
[2021-12-04] MEDS: metFORMIN HCL ER 500 MG TABCR PO SCH ×2 (08:52→17:22)
[2021-12-04] MEDS: SACCHAROMYCES BOULARDII 250 MG CAP PO SCH (08:53)
[2021-12-04] MEDS: guaiFENesin 600 MG TABCR PO SCH (08:53)
[2021-12-04] MEDS: CHOLECALCIFEROL 1,000 UNITS 25 MCG TAB PO SCH (08:53)
[2021-12-04] MEDS: PANTOprazole 40 MG TAB PO SCH (08:53)
[2021-12-04] MEDS: ENOXAPARIN INJ 40 MG/0.4 ML SYR SQ SCH (08:53)
[2021-12-04] MEDS: CYANOCOBALAMIN 500 MCG TABLET (VITAMIN B-12) PO SCH (08:53)
[2021-12-04] MEDS: cefTRIAXone SODIUM 2,000 MG in DEXTROSE 5% 50 ML IV SCH (08:55)
[2021-12-04] MEDS ORDERED: dexAMETHasone 10 MG in SYRINGE 0 ML IV SCH (09:00)
[2021-12-04] MEDS ORDERED: INSULIN GLARGINE SOLOSTAR 100 UNITS/ML 3 ML PEN SC SCH (09:00)
--- NOTE | 2021-12-04 16:34 | Discharge Summary ---
Date of Service date of admission - November 28, 2021 date of discharge - December 04, 2021 Admission HPI Per Admitting Provider Mrs. Bruner is a 41 year old immunocompromised female (on monthly Fremanezumab and monthly Omalizumab) with a history of Migraine Headaches, Anaphylaxis with NSAID's, Urticaria, and Nephrolithiasis who became ill with fever, chills, cough, achiness on , tested positive for COVID 19 11/19/21 and was treated with supportive measures at home (Tylenol, Mucinex). Everyone in her household Prior diagnosed with, but around the same time, however they all seem to have improved over the ensuing 2 weeks. Unfortunately the patient states that she recently became more symptomatic over the last 3 days. She has a very persistent cough, often coughing to the point of gagging and vomiting. She continues to experience fevers and chills -- with her last fever being last evening. Unfortunately, the patient has developed increasing shortness of breath over the last couple of days along with ongoing fatigue, body aches, loose stools. She has approximately 2 loose stools per day. Patient denies any headache or stiff neck. She denies any chest pain, hemoptysis, or pleuritic chest discomfort. She has not noticed any wheezing either. Patient is currently on 4 L of oxygen per minute via nasal cannula and her O2 saturations are hovering between 87% and 88%. Following increased to 5 L, her O2 saturations are unchanged. She will receive a nebulizer treatment. Principal Diagnosis 1. severe acute hypoxic respiratory failure 2nd to COVID-19 pneumonia 2. uncontrolled type 2 diabetes Discharge Exam gen - looks great, NAD, pleasant mouth - MMM neck - no JVD heart - RRR, s1 s2, no murmur lungs - b/l basilar rales MUCH improved from prior exams; no increased work of breathing; no wheezing; good air movement abd - soft NT ND BS+ ext - no edema, pulses 2+ b/l psych - a/o x 3 skin - no rash Discharge Data Allergies Allergy/AdvReac Type Severity Reaction Status Date / Time ibuprofen Allergy Severe ANAPHYLATIC Verified 11/28/21 11:20 SHOCK naproxen Allergy Severe ANAPHYLATIC Verified 11/28/21 11:20 SHOCK NSAIDS (Non-Steroidal Allergy Severe anaphylatic Verified 11/28/21 11:20 Anti-Inflamma shock azithromycin [From Zithromax] Allergy Intermediate Redness of Verified 11/28/21 14:25 Skin doxycycline Allergy Mild Redness of Verified 12/03/21 19:15 Skin Consultations Diabetes Education Respiratory Therapy Ordered Studies Chest X-Ray 11/28/21 09:16 SINGLE VIEW CHEST CLINICAL HISTORY: Cough and dyspnea. Covid. FINDINGS: An AP, portable, upright chest radiograph is compared to study dated 04/23/2017. The cardiomediastinal silhouette is unremarkable. Multifocal airspace consolidation is seen throughout both lungs. No large pleural effusion or pneumothorax is identified. The bony thorax is grossly intact. Cholecystectomy clips are noted in the right upper quadrant. IMPRESSION: Multifocal airspace consolidation is consistent with the reported history of a viral pneumonia. Radiographic follow-up to resolution is recommended. ACT 112: Negative or not required by law. Electronically signed by: Ernst Awad M.D. 11/28/2021 10:16 AM Chest CTA 11/28/21 10:04 CHEST CTA for PULMONARY ARTERIES CT DOSE: 427.13 mGy.cm HISTORY: Shortness of breath. Dizziness. Weakness. TECHNIQUE: Multiaxial CT images of the chest were performed following the intravenous administration of contrast to evaluate the pulmonary arteries. Maximal intensity projection images were also obtained. A dose lowering technique was utilized adhering to the principles of ALARA. COMPARISON STUDY: Chest CTA 09/24/2010. FINDINGS: Normal caliber thoracic aorta with no evidence for dissection. No pleural or pericardial effusions. The heart is normal in size. No filling defects within the pulmonary arteries to suggest a pulmonary embolus. Normal esophagus. Hepatic steatosis. The visualized spleen is unremarkable. There is mild mediastinal and bilateral hilar lymphadenopathy. This is likely reactive. No fractures within the visualized osseous structures. No pneumothorax. The central airways are patent. Multifocal bilateral groundglass airspace opacities are seen throughout the majority the lungs. This is consistent with a moderate to severe viral pneumonia. IMPRESSION: 1. No evidence for pulmonary embolus. 2. Multifocal bilateral groundglass airspace opacities seen throughout the majority the lungs consistent with a moderate to severe bilateral pneumonia. 3. Mildly mediastinal and bilateral hilar lymphadenopathy. This is likely reactive. ACT 112: Negative or not required by law. Electronically signed by: Armani Barrientos M.D. 11/28/2021 10:37 AM Venous Doppler Study 12/02/21 14:21 US venous doppler LE RT CLINICAL HISTORY: R leg swelling, severe COVID, high d-dimer COMPARISON: None available at the time of this dictation. TECHNIQUE: Right lower extremity real-time compression venous ultrasound with Color Doppler imaging. Utilizing real-time ultrasonic imaging multiple real time high-resolution ultrasonic images with compression and noncompression maneuvers of the deep venous system in addition to color doppler imaging were performed from the common femoral vein through the proximal calf veins. FINDINGS: Currently there is normal compressibility of the deep venous system from the common femoral vein through the proximal calf veins. No current evidence of acute thrombosis is identified. Impression: No evidence of deep venous thrombus. ACT 112: Negative or not required by law. Electronically signed by: Calixto King M.D. 12/02/2021 4:08 PM Diabetes Follow up Diabetes Follow-up Needed for Newly Diagnosed Diabetes Hospital Course (1) Pneumonia due to severe acute respiratory syndrome coronavirus 2 (SARS-CoV-2): Diagnosed with COVID-19 on 11/19/21. Upon ER presentation she had hypoxia with O2 requirement due to her severe pneumonia. Within 24 hours of admission her O2 requirement escalated to HFNC, 40 L with 100% FiO2. CRP at admission was 13. VERY HIGH procalcitonin at admission with level of 25 highly suggestive of bacterial superinfection. Initiated on IV dexamethasone and IV antibiotics on hospital day #1. Dexamethasone increased to 20mg IV daily on 11/29/21 for 5 days. Following such the dose was reduced to 10mg. Post-discharge she will complete a dexamethasone taper. She was not a candidate for Baricitinib given her chronic immune suppressive therapies she takes for chronic urticaria and chronic migraine headaches. She completed nearly 7 days of IV antibiotic therapy for the possibility of bacterial superinfection. With the above therapies she made significant improvement. O2 was weaned off by hospital discharge. However, she will need 2 L NC o2 with ambulation based on 2-step ambulatory oxygen test. This was prescribed at discharge. (2) Hypoxemia: ACUTE HYPOXIC RESPIRATORY FAILURE 2ND to #1 above. Peak O2 requirement - HFNC, 40L 100% FiO2. Improved as noted in #1 above. O2 weaned off by discharge except for 2 L NC O2 with activity/ambulation. (3) Diabetes mellitus type 2, uncontrolled: Patient had severe hyperglycemia during the visit due to the stress of illness as well as high-dose IV steroids. HbA1C was 8.1%. She did report a previous h/o pre-diabetes. Received combination of lantus and novolog while here, then later in her stay metformin was added. At discharge we recommended - * metformin 500mg BID * lantus once daily * with respect to the lantus - she will start with 25 units/day, weaning down to 10 units/day by the time her dexamethasone taper is complete It remains to be seen whether she will need to remain on the lantus after the steroids are finished. She will follow-up with her PCP for this. Advised twice daily BSGs at home. She did receive diabetes education/teaching by our clinical biostatistics director. (4) Vomiting: resolved 2nd to COVID-19 infection (5) Hypokalemia: replaced resolved (6) Dehydration: resolved (7) Diarrhea: due to COVID 19 infection resolved (8) Migraine with aura and without status migrainosus, not intractable: Previously on monthly Fremanezumab. states she hasn't taken it recently. denies any current headache. advised that she stay off of the above medication and let her migraine provider know she had had COVID illness. (9) Chronic urticaria: On Xolair injections for such (not asthma). urticaria controlled. Follows with [facility], [facility]. advised she hold her Xolair until she touches base with Dr Chaudhary given her illness, steroids, etc. (10) DVT prophylaxis: lovenox SC BID employed while hospitalized. baseline d-dimer was very high (3000). recommended Xarelto 10mg po daily x 30 days post-discharge for VTE prophylaxis. (11) Allergy to antibiotic: Doxycycline allergy - suspected. Rash, pruritis on hands. Doxycycline added to allergy list. She follows with [facility]. Recommended f/u with him for definitive testing for this issue. Total Time Total Time Spent Total Time Spent (In Minutes): 60 Discharge Plan Discharge Items Patient Disposition: Home - Self-Care Reason For Visit: COVID-19 pneumonia Discharge Diagnosis: 1. severe COVID-19 pneumonia 2. type 2 diabetes Activity: As commented below Activity Comment: gradually increase activities over the next 1-2 weeks Sexual Activity: Wait until after follow-up appointment Exercise/Sports: Wait until after follow-up appointment Driving/Machine Use: Resume 3 days after discharge Non-emergency contact: Primary Care Provider and Specialist Call non-emergency contact if: you have any medication questions, your symptoms worsen and you have a fever Follow-up/Referrals: [facility] – [place] Pulmonology [Provider Group] (3-4 weeks - get established; severe COVID pneumonia, f/u from hospital) Anette Vences MD [Primary Care Provider] - (see Dr Vences within 1 week) Zoran Chaudhary [Physician] - (see Dr Molina in 4-6 weeks to discuss testing for doxycycline allergy) Diet: Carb Consistent or DM2 Addtl Attending Provider Instructions: Mrs Bruner, You were hospitalized for severe COVID-19 pneumonia. You were treated with a combination of steroids, antibiotics, oxygen, and other supportive care. Your oxygen was weaned as tolerated during your stay. An ambulatory oxygen test on 12/04/21 showed that you do NOT need oxygen at rest, but you will need to use 2 liters of oxygen when walking, doing activities, and when you leave your home. Most people will need this for 2-3 weeks but sometimes less amounts of time. During the stay your blood sugars were very high due to the illness itself, pre- existing diabetes, and the steroids being used for your pneumonia. You required a fair amount of insulin to control your sugars. We checked a hemoglobin a1c and this was 8.1% (goal for diabetics is <7%). With the above you made nice improvement. All symptoms - shortness of breath, fatigue, diarrhea, etc - improved. Recommendations - 1. COVID-19 pneumonia - * take dexamethasone steroid as follows - start on 12/05/21; take the steroid with food. * day #1 - take 4 tablets (total of 8mg) * days #2 and 3 - take 3 tablets (total of 6mg) * days #4 and 5 - take 2 tablets (total of 4mg) * days# 6 and 7 - take 1 tablet (2mg total) * ok to take [id number] mucinex up to 1200mg twice daily for cough, as needed/desired * may use tessalon pearles, 100-200mg every 8 hours as needed for cough * continue your breathing exercises with your flutter valve and your incentive spirometry device; continue them for at least another week * when in bed continue side positioning and proning ("tummy time"), if possible 2. For prevention of DVT blood clots and pulmonary emboli (blood clots in lungs) - * take Xarelto 10mg once daily x 30 days; start this tomorrow, 12/05/21 * see instructions below regarding Xarelto 3. For your diabetes - * please check your blood sugars at least twice daily; check EVERY morning when you wake up, and then at least 1 other time during the day (example - before bed, before dinner, etc); write your numbers down in a notebook for your doctor * metformin xr 500mg twice daily; take with meals * lantus insulin via pen - take this each morning as follows - start 12/05/2021. You can pick a time each morning to administer (8am, 9am - your choice). * 12/05/21 - 25 units of lantus * 12/06/21 - 20 units of lantus * 12/07/21 - 20 units of lantus * 12/08/21 - 15 units of lantus * 12/09/21 - 15 units of lantus * 12/10/21 - 10 units of lantus * 12/11/21 - 10 units of lantus * you may be able to stop your lantus after the 7-day period above * your blood sugar readings will dictate if you will be able to stop the lantus * please speak with your family doctor after 12/11/21 to determine if you need to remain on lantus * please watch your diet carefully over the next week as your sugars will run high because of the dexamethasone steroid * if your sugars are consistently higher than [address] Vences know as soon as possible; additional adjustments may be needed for the insulin and/or metformin xr 4. You are unlikely to be contagious to others at this time. You do not need to isolate at home. However, with that said, plan to spend the next few days at home resting and recovering. 5. To help prevent stomach irritation while on the steroids and Xarelto - * take pantoprazole 40mg once daily for 30 days; you can start this tomorrow morning 6. Continue to wear a mask any time you leave your home. 7. Check your oxygen levels on your finger with the pulse oximeter 3-4 times each day. If you are consistently 90% or higher these are acceptable readings. If you are less than 90% consistently please seek medical attention. 8. As we talked about please consider the COVID vaccine in about 3 months. 9. It is important to listen to your body during the recovery period. If you are tired it is ok to rest/nap. You are going to feel more tired than usual and you won't be back to 100% for a week or two, if not longer. Try not to "over do it" - gradually increase your activities. 10. Oxygen - 2 liters of nasal cannula oxygen with activity/ambulation/leaving your home. Please do not allow smokers in your home due to risk of fire. Again you do not need the oxygen while sitting/resting/sleeping. 11. Please hold your Ajovy and Xolair medications until you speak with your family doctor and other specialists about when it is safe to resume them. Follow-up - see separate section Return to [facility] if - * you have fevers over 100 degrees * you have worsening shortness of breath * your pulse oximetry readings are less than 90% consistently * you have bleeding from any location as listed below * you have chest pains * you are concerned about your blood sugars (too high, too low, etc) * any other concerns It was our pleasure to care for you at [facility]. Continue to feel better and best wishes for a speedy recovery! Dr Sanjay Gonzalez Network Operations Manager Provider Instructions: Blood Thinner (Anticoagulant) Medication Instructions: For uncertain reasons COVID-19 infection, in some individuals, "thickens" the blood which increases the risk of developing DVT blood clots and blood clots of the lungs. These often occur while people are recovering at home. Your blood thinner is called XARELTO. The treatment course is 30 days starting on 12/05/2021. * You should take your medication exactly as directed. * Never skip a dose. * Never take a double dose. If you miss a dose, take it as soon as you remember. Call your Primary Care doctor if you experience any of the following: * Swelling or Pain in your leg * Sudden, continuous pain deep in a muscle * Pain that worsens when you are active or when you stand still for a long time * Chest Pain * Sudden Shortness of Breath * Rapid or pounding heart beat * Fainting * Dizziness * Cough with blood or bloody sputum * Sweating more than normal * Bruises * Heavy or uncontrolled bleeding * Blood in your urine, stool or vomit * Black or tarry stools * Heavy nose bleeding Caring for Your Self at Home: * Avoid sitting, standing or lying down for long periods without moving your legs and feet * When traveling by car, stop to get out and move around at least once every 3 hours * On long airplane, train or bus rides, get up and move around when possible * If you can't get up, wiggle your toes and tighten your calves to keep your blood moving Pending Studies at Discharge: No Stand-Alone Forms: My [facility] Stimatix GI, Smoking Cessation Medications and DC Order Prescriptions: New (DME) Oxygen Home Liters Per Minute See Rx Instructions .ROUTE .MEDSUPPLY Qty: 1 RF: 0 pantoprazole 40 mg Tablet,Delayed Release (Dr/Ec) 40 mg PO QAM Qty: 30 RF: 0 Lantus Solostar U-100 Insulin 100 unit/mL (3 mL) Insulin Pen See Rx Instructions .ROUTE .COMPLEX Qty: 15 RF: 0 benzonatate 100 mg Capsule 200 mg PO TID PRN (Reason: cough) Qty: 30 RF: 1 metformin 500 mg Tablet Extended Release 24 Hr 500 mg PO BIDM Qty: 60 RF: 2 (DME) pen needle, diabetic [BD Ultra-Fine Allison Pen Needle] 32 gauge x 5/32" needle 1 ea miscellaneous .once daily Qty: 50 RF: 0 (DME) OneTouch Verio test strips Strip See Rx Instructions .Route Qty: 100 RF: 1 (DME) lancets [OneTouch Delica Lancets] 33 gauge misc See Rx Instructions .Route Qty: 100 RF: 1 dexamethasone 2 mg tablet 2 mg PO DIRECTED Qty: 16 RF: 0 Xarelto 10 mg tablet 10 mg PO DAILY 30 Days Qty: 30 RF: 0 Continued cholecalciferol (vitamin D3) 25 mcg (1,000 unit) capsule 25 mcg PO DAILY RF: 0 mecobalamin (vitamin B12) 1,000 mcg tablet,chewable 1,000 mcg PO DAILY RF: 0 epinephrine 0.3 mg/0.3 mL auto-injector 0.3 mg IM Q10M PRN (Reason: Allergic Reaction) RF: 0 estradiol 0.5 mg tablet 0.5 mg PO DAILY RF: 0 rimegepant [Nurtec ODT] 75 mg tablet,disintegrating 75 mg PO DAILY RF: 0 Discontinued Ajovy Autoinjector 225 mg/1.5 mL auto-injector 225 mg SQ MONTHLY Qty: 1.5 RF: 5 Xolair 150 mg recon soln 0 mg subcut MONTHLY RF: 0 Discharge Orders: Discharge Order (Routine); Ordered 12/04/21 Ordered By: Nils Vigil/Other Patient Handouts: 2019-nCoV, COVID-19 Home Care, Proning COVID-19, COVID-19 and the Flu What's ..., 5 Steps for Eating Healthier, Understanding Type 2 Diabetes, Hypoglycemia Steps, Type 2 Diabetes Admission Data Admit Date/Time: 11/28/21 11:44 Attending Provider: Nils Grace Admit Provider: Arnel Vyas Primary Care Provider: Anette Vences Other Interventions: Discharge Summary Assessment (RN) Last Done: 12/04/21 16:49 Coding Level of Care Code D/C DAY MANAGEMENT >30 MINS Diagnoses Pneumonia due to severe acute respiratory syndrome coronavirus 2 (SARS-CoV-2) U07.1; J12.82 Hypoxemia R09.02 Diabetes mellitus type 2, uncontrolled E11.65 Vomiting R11.10 Hypokalemia E87.6 Dehydration E86.0 Diarrhea R19.7 Migraine with aura and without status migrainosus, not intractable G43.109 Chronic urticaria L50.8 DVT prophylaxis Z29.9 Allergy to antibiotic Z88.1
== END 2021-12-04 18:09 | disposition home or self-care (01) | DRG 177 ==
LOC: ED 08:49 → EDINP 11:44 → SUATTDRO 11:44 → 2S 13:23